=== PATIENT | female | born 1940 | race Caucasian/White ===

== ENCOUNTER 2016-10-09 14:28 | Outpatient (CLI) | payer MEDICARE, BC | END 2016-10-09 14:29 | disposition home or self-care (01) | DX: I48.2 Chronic atrial fibrillation (principal) ==

== ENCOUNTER 2016-11-13 11:08 | Outpatient (CLI) | payer MEDICARE, BC | END 2016-11-13 11:09 | disposition home or self-care (01) | DX: I48.2 Chronic atrial fibrillation (principal) ==

== ENCOUNTER 2016-11-26 13:24 | Outpatient (CLI) | payer MEDICARE, BC | END 2016-11-26 13:25 | disposition home or self-care (01) | DX: I48.2 Chronic atrial fibrillation (principal); I10 Essential (primary) hypertension ==

== ENCOUNTER 2016-12-25 14:18 | Outpatient (CLI) | payer MEDICARE, BC | END 2016-12-25 14:19 | disposition home or self-care (01) | DX: I48.2 Chronic atrial fibrillation (principal) ==

== ENCOUNTER 2017-01-20 10:15 | Outpatient (CLI) | payer MEDICARE, BC | END 2017-01-20 10:16 | disposition home or self-care (01) | LOC: SC 10:15 | PROVIDERS: ATTEND Nurse Practitioner Family | DX: G47.33 Obstructive sleep apnea (adult) (pediatric) (principal) | CPT/HCPCS: 99213; G0463; 99212 ==

== ENCOUNTER 2017-02-05 13:56 | Outpatient (CLI) | payer MEDICARE, BC | END 2017-02-05 13:57 | disposition home or self-care (01) | LOC: LAB.N 13:56 | PROVIDERS: ATTEND Pharmacist | DX: I48.2 Chronic atrial fibrillation (principal) | CPT/HCPCS: 85610 ==

== ENCOUNTER 2017-02-22 15:03 | Outpatient (CLI) | payer MEDICARE, BC ==
[2017-02-22 19:07] LABS: CALCIUM 9.2 mg/dL (8.5-10.3); CREATININE 0.5 mg/dL (0.4-1.0); POTASSIUM 3.9 mmol/L (3.5-5.0)
== END 2017-02-22 15:04 | disposition home or self-care (01) ==
LOC: LAB.N 15:03
PROVIDERS: ATTEND Internal Medicine Cardiovascular Disease
DX: I10 Essential (primary) hypertension (principal); I48.2 Chronic atrial fibrillation
CPT/HCPCS: 36415; 80048

== ENCOUNTER 2017-03-15 08:12 | Outpatient (CLI) | payer MEDICARE, BC | END 2017-03-15 08:13 | disposition home or self-care (01) | DX: I48.2 Chronic atrial fibrillation (principal) ==

== ENCOUNTER 2017-03-30 08:00 | Outpatient (CLI) | payer MEDICARE, BC | END 2017-03-30 08:01 | disposition home or self-care (01) | LOC: LAB.N 08:00 | PROVIDERS: ATTEND Pharmacist | DX: I48.2 Chronic atrial fibrillation (principal) | CPT/HCPCS: 85610 ==

== ENCOUNTER 2017-04-29 15:03 | Outpatient (CLI) | payer MEDICARE, BC | END 2017-04-29 15:04 | disposition home or self-care (01) | LOC: LAB.N 15:03 | PROVIDERS: ATTEND Pharmacist | DX: I48.2 Chronic atrial fibrillation (principal) | CPT/HCPCS: 85610 ==

== ENCOUNTER 2017-05-04 10:33 | Outpatient (CLI) | payer MEDICARE, BC | END 2017-05-04 10:34 | disposition home or self-care (01) | LOC: SC 10:33 | PROVIDERS: ATTEND Nurse Practitioner Family | DX: G47.33 Obstructive sleep apnea (adult) (pediatric) (principal) | CPT/HCPCS: 99214; G0463; 99212 ==

== ENCOUNTER 2017-05-24 08:00 | Outpatient (CLI) | payer MEDICARE, BC | END 2017-05-24 08:01 | disposition home or self-care (01) | LOC: LAB.N 08:00 | PROVIDERS: ATTEND Pharmacist | DX: I48.2 Chronic atrial fibrillation (principal) | CPT/HCPCS: 85610 ==

== ENCOUNTER 2017-06-21 08:00 | Outpatient (CLI) | payer MEDICARE, BC | END 2017-06-21 08:01 | disposition home or self-care (01) | LOC: LAB.N 08:00 | PROVIDERS: ATTEND Pharmacist | DX: I48.2 Chronic atrial fibrillation (principal) | CPT/HCPCS: 85610 ==

== ENCOUNTER 2017-07-06 08:00 | Outpatient (CLI) | payer MEDICARE, BC | END 2017-07-06 08:01 | disposition home or self-care (01) | LOC: LAB.N 08:00 | PROVIDERS: ATTEND Pharmacist | DX: I48.2 Chronic atrial fibrillation (principal) | CPT/HCPCS: 85610 ==

== ENCOUNTER 2017-07-20 15:30 | Outpatient (CLI) | payer MEDICARE, BC | END 2017-07-20 15:31 | disposition home or self-care (01) | LOC: LAB.N 15:30 | PROVIDERS: ATTEND Pharmacist | DX: I48.2 Chronic atrial fibrillation (principal) | CPT/HCPCS: 85610 ==

== ENCOUNTER 2017-08-04 13:28 | Outpatient (CLI) | payer MEDICARE, BC | END 2017-08-04 13:29 | disposition home or self-care (01) | LOC: LAB.N 13:28 | PROVIDERS: ATTEND Pharmacist | DX: I48.2 Chronic atrial fibrillation (principal) | CPT/HCPCS: 85610 ==

== ENCOUNTER 2017-08-31 08:00 | Outpatient (CLI) | payer MEDICARE, BC | END 2017-08-31 08:01 | disposition home or self-care (01) | LOC: LAB.N 08:00 | PROVIDERS: ATTEND Pharmacist | DX: I48.2 Chronic atrial fibrillation (principal) | CPT/HCPCS: 85610 ==

== ENCOUNTER 2017-09-24 13:33 | Outpatient (CLI) | payer MEDICARE, BC | END 2017-09-24 13:34 | disposition home or self-care (01) | LOC: LAB.N 13:33 | PROVIDERS: ATTEND Pharmacist | DX: I48.2 Chronic atrial fibrillation (principal) | CPT/HCPCS: 85610 ==

== ENCOUNTER 2018-01-07 11:13 | Outpatient (CLI) | payer MEDICARE, BC | END 2018-01-07 11:14 | disposition home or self-care (01) | LOC: LAB.N 11:13 | PROVIDERS: ATTEND Pharmacist | DX: I48.2 Chronic atrial fibrillation (principal) | CPT/HCPCS: 85610 ==

== ENCOUNTER 2018-01-17 08:00 | Outpatient (CLI) | payer MEDICARE, BC | END 2018-01-17 08:01 | disposition home or self-care (01) | LOC: LAB.N 08:00 | PROVIDERS: ATTEND Pharmacist | DX: I48.2 Chronic atrial fibrillation (principal) | CPT/HCPCS: 85610 ==

== ENCOUNTER 2018-02-01 11:29 | Outpatient (CLI) | payer MEDICARE, BC | END 2018-02-01 11:30 | LOC: LAB.N 11:29 | PROVIDERS: ATTEND Pharmacist | DX: I48.2 Chronic atrial fibrillation (principal) | CPT/HCPCS: 85610 ==

== ENCOUNTER 2018-02-15 08:00 | Outpatient (CLI) | payer MEDICARE, BC | END 2018-02-15 08:01 | LOC: LAB.N 08:00 | PROVIDERS: ATTEND Pharmacist | DX: I48.2 Chronic atrial fibrillation (principal) | CPT/HCPCS: 85610 ==

== ENCOUNTER 2018-02-28 08:00 | Outpatient (CLI) | END 2018-02-28 08:01 | disposition home or self-care (01) ==

== ENCOUNTER 2018-03-02 10:44 | Outpatient (CLI) | payer MEDICARE, BC ==
--- NOTE | 2018-03-03 10:28 | Mammography Report ---
Procedure Date: 03/02/2018 Accession Number: [id number] / [id number] Procedure: MGN - Screening Mammo Dig Bilat CPT Code: FULL RESULT: EXAM: Screening Mammo Dig Bilat DATE: 03/02/2018 11:09 AM CLINICAL HISTORY: 77-year-old with history of benign bilateral biopsies for screening TECHNIQUE: Bilateral CC, laterally exaggerated CC, MLO views were obtained. COMPARISON: 06/18/2016, 02/06/2015, 01/08/2014, 12/15/2012, 12/11/2011, 12/15/2010, 12/10/2009 FINDINGS: The breasts demonstrate heterogeneously dense fibroglandular parenchyma bilaterally. Postbiopsy changes are stable. Coarse and punctate, typically benign calcifications are present. No suspicious masses, clustered microcalcifications, or regions of architectural distortion are identified. IMPRESSION: Benign findings RECOMMENDATION: Routine annual screening unless otherwise clinically indicated. BIRADS CATEGORY 2: Benign findings STANDARD QUALIFYING STATEMENTS: 1. This examination was reviewed with the aid of Computer-Aided Detection (CAD). 2. A negative or benign imaging report should not delay biopsy if clinically suspicious findings are present. Consider surgical consultation if warrented. More than 5% of cancers are not identified by imaging. 3. Dense breasts may obscure an underlying neoplasm.
== END 2018-03-02 10:45 | disposition home or self-care (01) ==
LOC: DI.N 10:44
PROVIDERS: ATTEND Specialist
DX: Z12.31 Encounter for screening mammogram for malignant neoplasm of breast (principal)
CPT/HCPCS: 77067

== ENCOUNTER 2018-03-10 15:39 | Outpatient (CLI) | payer MEDICARE, BC | END 2018-03-10 15:40 | disposition home or self-care (01) | LOC: LAB.N 15:39 | PROVIDERS: ATTEND Pharmacist | DX: I48.2 Chronic atrial fibrillation (principal) | CPT/HCPCS: 85610 ==

== ENCOUNTER 2018-04-14 14:30 | Outpatient (CLI) | payer MEDICARE, BC | END 2018-04-14 14:31 | disposition home or self-care (01) | LOC: LAB.N 14:30 | PROVIDERS: ATTEND Pharmacist | DX: I48.2 Chronic atrial fibrillation (principal) | CPT/HCPCS: 85610 ==

== ENCOUNTER 2018-04-15 11:39 | Outpatient (CLI) | payer MEDICARE, BC | END 2018-04-15 11:40 | disposition home or self-care (01) | LOC: EMS 11:39 | PROVIDERS: ATTEND Surgery | DX: M25.561 Pain in right knee (principal) | CPT/HCPCS: A0425; A0429 ==

== ENCOUNTER 2018-04-15 12:11 | Inpatient (IN) | payer MEDICARE, BC ==
--- NOTE | 2018-04-15 13:49 | XRAY Report ---
Procedure Date: 04/15/2018 Accession Number: [id number] / [id number] Procedure: XR - Knee 2 View RT CPT Code: FULL RESULT: EXAM: RIGHT KNEE RADIOGRAPHY EXAM DATE: 04/15/2018 01:24 PM. CLINICAL HISTORY: RIGHT KNEE PAIN. COMPARISON: None. TECHNIQUE: 2 views. FINDINGS: There is a displaced and angulated fracture of the distal femoral diaphysis. No intra-articular extension. Lateral compartment hemiprosthesis in place without evidence of complication. Soft tissue swelling. No significant joint effusion. IMPRESSION: Displaced and angulated distal femoral diaphyseal fracture. RADIA
[2018-04-15] MEDS ORDERED: MORPHINE 10 MG/ML VIAL IVP STA (13:53)
--- NOTE | 2018-04-15 14:36 | ED Physician Documentation ---
PD HPI LOWER EXT INJURY - Stated complaint Stated Complaint: R KNEE PAIN, GLF - Chief complaint Chief Complaint: Ext Problem - History obtained from History obtained from: Patient - History of Present Illness PD HPI LOW EXT INJURY LOCATION: Right, Upper leg Type of injury: Fall Where injury occurred: Home Timing - onset: Today Timing - details: Abrupt onset Worsened by: Moving, Palpating Contributing factors: Prosthetic joint - Additional information Additional information: The patient is a 77-year-old female with a right total hip replacement and a right partial knee replacement who presents with right knee pain after falling this morning. It was a low impact fall when she lost her balance and stumbled, twisting her leg underneath her as she went to the floor. She felt a "snap." She has not been able to stand since incident occurred because of pain in her knee. She denies any other injuries. She is 2 years status post partial right knee replacement and 3 months status post right total hip replacement. Past medical history is significant for atrial fibrillation, for which she is on Coumadin. Review of Systems Constitutional: denies: Fever Ears: denies: Tinnitus/ringing Nose: denies: Congestion Cardiac: denies: Chest pain / pressure Respiratory: denies: Dyspnea, Cough GI: denies: Abdominal Pain, Nausea, Vomiting Skin: denies: Rash, Abrasion (s) Musculoskeletal: reports: Extremity pain (right leg). denies: Neck pain Neurologic: denies: Focal weakness, Numbness, Headache PD PAST MEDICAL HISTORY - Past Medical History Cardiovascular: Hypertension, Atrial fibrillation Respiratory: Sleep apnea, CPAP use Endocrine/Autoimmune: None GI: Diverticulitis : None HEENT: None Psych: Depression, Anxiety Musculoskeletal: Osteoarthritis - Past Surgical History Past Surgical History: Yes Ortho: Knee replacement - Present Medications Home Medications: Ambulatory Orders Medication Instructions Recorded Confirmed Losartan [Cozaar] 50 mg PO BID 11/02/14 04/15/18 Metoprolol Succinate 50 mg PO BID 11/02/14 04/15/18 Warfarin [Coumadin] 5 mg PO SUTUWEFRSA 11/02/14 04/15/18 Zolpidem Tartrate [Ambien] 5 mg PO QPM PRN 11/02/14 04/15/18 [id number] CD [Cardizem Cd] 180 mg PO BID 11/02/14 04/15/18 Chlorthalidone [Chlorthalidone] 25 mg PO DAILY 04/15/18 04/15/18 FLUoxetine [PROzac] 40 mg PO DAILY 04/15/18 04/15/18 Warfarin Sodium [Warfarin Sodium] 7.5 mg PO MOTH 04/15/18 04/15/18 - Allergies Allergies/Adverse Reactions: Allergies Allergy/AdvReac Type Severity Reaction Status Date / Time Nxsxsxr-Zce-Mgr Reductase Allergy Unknown Verified 04/15/18 16:52 Inhibitor - Social History Does the pt smoke?: No Smoking Status: Former smoker Does the pt drink ETOH?: Yes Does the pt have substance abuse?: No - Immunizations Immunizations are current?: Yes - POLST Patient has POLST: No PD ED PE NORMAL - Vitals Vital signs reviewed: Yes (Normal) - General General: Alert and oriented X 3, Well developed/nourished - HEENT HEENT: Atraumatic - Neck Neck: No bony TTP - Cardiac Cardiac: RRR - Respiratory Respiratory: No respiratory distress, Clear bilaterally - Abdomen Abdomen: Soft, Non tender - Back Back: No CVA TTP, No spinal TTP - Derm Derm: No rash - Extremities Extremities: No calf tenderness / cord, Other (Right leg is shortened compared to the left, and there is tenderness to palpation just proximal to the knee. Distal neurovascular is intact.) - Neuro Neuro: Alert and oriented X 3, No motor deficit, No sensory deficit Results - Vitals Vitals: Vital Signs - 24 hr 04/15/18 04/15/18 12:17 16:15 Temperature 36.1 C L 36.7 C Heart Rate 68 80 Respiratory 18 18 Rate Blood Pressure 117/67 150/84 H O2 Saturation 98 98 Oxygen O2 Source Room air - Labs Labs: Laboratory Tests 04/15/18 04/15/18 04/15/18 12:55 15:10 15:10 WBC 11.8 H RBC 4.78 Hgb 13.9 Hct 40.0 MCV 83.7 MCH 29.1 MCHC 34.7 RDW 15.3 H Plt Count 251 MPV 7.7 L Neut # (Auto) 10.5 H Lymph # (Auto) 0.6 L Ware # (Auto) 0.6 Eos # (Auto) 0.1 Baso # (Auto) 0.0 Absolute Nucleated RBC 0.01 Nucleated RBC % 0.1 Whole Blood INR 1.9 H Sodium 122 L Potassium 3.4 L Chloride 86 L Carbon Dioxide 26 Anion Gap 10.0 BUN 18 Creatinine 0.5 Estimated GFR (MDRD) 120 Glucose 118 H Calcium 9.3 Total Bilirubin 1.0 AST 21 ALT 17 Alkaline Phosphatase 76 Total Protein 7.7 Albumin 4.3 Globulin 3.4 Albumin/Globulin Ratio 1.3 Lipase 26 04/15/18 16:05 WBC RBC Hgb Hct MCV MCH MCHC RDW Plt Count MPV Neut # (Auto) Lymph # (Auto) Ware # (Auto) Eos # (Auto) Baso # (Auto) Absolute Nucleated RBC Nucleated RBC % Whole Blood INR 1.9 H Sodium Potassium Chloride Carbon Dioxide Anion Gap BUN Creatinine Estimated GFR (MDRD) Glucose Calcium Total Bilirubin AST ALT Alkaline Phosphatase Total Protein Albumin Globulin Albumin/Globulin Ratio Lipase - Rads (name of study) right knee Radiology: Prelim report reviewed (There is displaced and angulated fracture of the distal femoral diaphysis. No intra-articular extension. Lateral compartment hemiprosthesis in place without evidence of complication. Soft tissue swelling. No significant joint effusion.), EMP read contemporaneously, See rad report PD MEDICAL DECISION MAKING - ED course Complexity details: reviewed results, re-evaluated patient, considered differential, d/w patient, d/w family, d/w insurance healthcare consultant ED course: The patient's presentation is significant for displaced, angulated fracture of the right distal femur, without intra-articular involvement. Treatment in the emergency department included insertion of a PICC line by anesthesia after multiple unsuccessful attempts at peripheral IV access. Morphine 5 mg administered IV 2. A knee immobilizer was placed while traction was applied to the leg to help improve alignment of the fracture site. I discussed her condition with Dr. Collado who plans orthopedic intervention. I discussed her condition with Dr. Travis, who will admit for medical management, including reversal of her warfarin prior to surgery. - Sepsis Event Vital Signs: Vital Signs - 24 hr 04/15/18 04/15/18 12:17 16:15 Temperature 36.1 C L 36.7 C Heart Rate 68 80 Respiratory 18 18 Rate Blood Pressure 117/67 150/84 H O2 Saturation 98 98 Oxygen O2 Source Room air Departure - Departure Disposition: [facility] DC/Xfer Clinical Impression: Atrial fibrillation and flutter Closed right femoral fracture Qualifiers: Encounter type: initial encounter Femur location: distal Fracture morphology: unspecified fracture morphology Qualified Code(s): S72.401A - Unspecified fracture of lower end of right femur, initial encounter for closed fracture Condition: Stable Discharge Date/Time: 04/15/18 17:32
[2018-04-15 15:34] LABS: BASOPHILS % (AUTO) 0.4 %; EOSINOPHILS # (AUTO) 0.1 10^3/uL (0.0-0.7); EOSINOPHILS % (AUTO) 0.5 %; HGB - HEMOGLOBIN 13.9 g/dL (12.0-16.0); LYMPHOCYTES # (AUTO) 0.6 10^3/uL (1.5-3.5); LYMPHOCYTES % (AUTO) 5.1 %; MEAN CORPUSCULAR HEMOGLOBIN 29.1 pg (27.0-31.0); MEAN CORPUSCULAR HGB CONC 34.7 g/dL (32.0-36.0); MEAN CORPUSCULAR VOLUME 83.7 fL (81.0-99.0); MEAN PLATELET VOLUME 7.7 fL (7.9-10.8); MONOCYTES # (AUTO) 0.6 10^3/uL (0.0-1.0); MONOCYTES % (AUTO) 5.1 %; NEUTROPHILS # (AUTO) 10.5 10^3/uL (1.5-6.6); NEUTROPHILS % (AUTO) 88.9 %; PLT - PLATELET COUNT 251 10^3/uL (130-450); RED BLOOD COUNT 4.78 10^6/uL (4.20-5.40); RED CELL DISTRIBUTION WIDTH 15.3 % (12.0-15.0); WHITE BLOOD COUNT 11.8 x10^3/uL (4.8-10.8)
[2018-04-15 15:37] LABS: ALBUMIN 4.3 g/dL (3.2-5.5); ALBUMIN/GLOBULIN RATIO 1.3 (1.0-2.2); CALCIUM 9.3 mg/dL (8.5-10.3); CREATININE 0.5 mg/dL (0.4-1.0); TOTAL PROTEIN 7.7 g/dL (6.7-8.2)
[2018-04-15] MEDS ORDERED: MORPHINE 10 MG/ML VIAL ONE (15:37)
[2018-04-15] MEDS ORDERED: SODIUM CHLORIDE 0.9% 1,000 ML IV SCH (16:00)
[2018-04-15] MEDS ORDERED: POTASSIUM CHLORIDE 20 MEQ TABLET PO ONE (16:13)
[2018-04-15] MEDS ORDERED: ONDANSETRON 4 MG/2 ML VIAL IVP PRN (16:24)
[2018-04-15] MEDS ORDERED: SODIUM CHLORIDE FLUSH 0.9% 10 ML SYRINGE IVP PRN (16:24)
[2018-04-15] MEDS ORDERED: oxyCODONE 5 MG TABLET PO PRN (16:24)
--- NOTE | 2018-04-15 16:24 | PROVIDER PROGRESS NOTE ---
Subjective - Prog Note Date Prog Note Date: 04/15/18 Prog Note Time: 16:21 - Subjective Pt reports feeling: Worse (Patient apparently twisted right knee trying to get off the floor while on "all-fours" and felt a painful "pop" in her right distal thigh. Now 4 months s/p right THR; has had right unicompartmental knee replacement in the past as well. No distal weakness/numbness.) Objective - Vital Signs/Intake & Output Vital Signs: Vital Signs x48h Temp Pulse Resp BP Pulse Ox 04/15/18 16:15 36.7 C 80 18 150/84 H 98 04/15/18 12:17 36.1 C L 68 18 117/67 98 - Lab Results Fish Bones: 04/15/18 15:10 04/15/18 15:10 Other Labs: Lab Results x24hrs 04/15/18 04/15/18 04/15/18 Range/Units 16:05 15:10 15:10 WBC 11.8 H (4.8-10.8) x10^3/uL RBC 4.78 (4.20-5.40) 10^6/uL Hgb 13.9 (12.0-16.0) g/dL Hct 40.0 (37.0-47.0) % MCV 83.7 (81.0-99.0) fL MCH 29.1 (27.0-31.0) pg MCHC 34.7 (32.0-36.0) g/dL RDW 15.3 H (12.0-15.0) % Plt Count 251 (130-450) 10^3/uL MPV 7.7 L (7.9-10.8) fL Neut # (Auto) 10.5 H (1.5-6.6) 10^3/uL Lymph # (Auto) 0.6 L (1.5-3.5) 10^3/uL [place] # (Auto) 0.6 (0.0-1.0) 10^3/uL Eos # (Auto) 0.1 (0.0-0.7) 10^3/uL Baso # (Auto) 0.0 (0.0-0.1) 10^3/uL Absolute Nucleated RBC 0.01 x10^3/uL Nucleated RBC % 0.1 /100WBC Whole Blood INR 1.9 H (0.8-1.2) Sodium 122 L (135-145) mmol/L Potassium 3.4 L (3.5-5.0) mmol/L Chloride 86 L (101-111) mmol/L Carbon Dioxide 26 (21-32) mmol/L Anion Gap 10.0 (6-13) BUN 18 (6-20) mg/dL Creatinine 0.5 (0.4-1.0) mg/dL Estimated GFR (MDRD) 120 (>89) Glucose 118 H (70-100) mg/dL Calcium 9.3 (8.5-10.3) mg/dL Total Bilirubin 1.0 (0.2-1.0) mg/dL AST 21 (10-42) IU/L ALT 17 (10-60) IU/L Alkaline Phosphatase 76 (42-121) IU/L Total Protein 7.7 (6.7-8.2) g/dL Albumin 4.3 (3.2-5.5) g/dL Globulin 3.4 (2.1-4.2) g/dL Albumin/Globulin Ratio 1.3 (1.0-2.2) Lipase 26 (22-51) U/L 04/15/18 Range/Units 12:55 WBC (4.8-10.8) x10^3/uL RBC (4.20-5.40) 10^6/uL Hgb (12.0-16.0) g/dL Hct (37.0-47.0) % MCV (81.0-99.0) fL MCH (27.0-31.0) pg MCHC (32.0-36.0) g/dL RDW (12.0-15.0) % Plt Count (130-450) 10^3/uL MPV (7.9-10.8) fL Neut # (Auto) (1.5-6.6) 10^3/uL Lymph # (Auto) (1.5-3.5) 10^3/uL [place] # (Auto) (0.0-1.0) 10^3/uL Eos # (Auto) (0.0-0.7) 10^3/uL Baso # (Auto) (0.0-0.1) 10^3/uL Absolute Nucleated RBC x10^3/uL Nucleated RBC % /100WBC Whole Blood INR 1.9 H (0.8-1.2) Sodium (135-145) mmol/L Potassium (3.5-5.0) mmol/L Chloride (101-111) mmol/L Carbon Dioxide (21-32) mmol/L Anion Gap (6-13) BUN (6-20) mg/dL Creatinine (0.4-1.0) mg/dL Estimated GFR (MDRD) (>89) Glucose (70-100) mg/dL Calcium (8.5-10.3) mg/dL Total Bilirubin (0.2-1.0) mg/dL AST (10-42) IU/L ALT (10-60) IU/L Alkaline Phosphatase (42-121) IU/L Total Protein (6.7-8.2) g/dL Albumin (3.2-5.5) g/dL Globulin (2.1-4.2) g/dL Albumin/Globulin Ratio (1.0-2.2) Lipase (22-51) U/L - Diagnostic Imaging Diagnostic Imaging Comments: XR: shows right distal femur fracture. Unicompartmental knee intact. Can not see the right femoral prosthesis tip on these XR. - Other Results/Comments Other Results/Comments: EXAM: Gross deformity of distal thigh. Painful right knee motion. N/V ok distally. Moves toes well. Good cap filling Assessment/Plan - Problem List (1) Closed right femoral fracture Impression: Periprosthetic right distal femur fracture - s/p unicompartment knee replacement s/p right THR - 4 months ago A. fib - on warfarin PLAN: Closed reduction with analgesics in ED and place into knee immobilizer. Reverse warfarin with Vit K. FFP as needed preop. Plan ORIF of distal femur fracture with a locked distal femoral plating Mon AM. Risk/benfit explained including anesthesia risk, infection, blood loss, nerve damage, nonunion, malunion, DVT, etc. Questions answered. Consent signed. Leg marked. Qualifiers: Encounter type: initial encounter Femur location: distal Fracture morphology: unspecified fracture morphology Qualified Code(s): S72.401A - Unspecified fracture of lower end of right femur, initial encounter for closed fracture
--- NOTE | 2018-04-15 16:54 | HISTORY & PHYSICAL EXAMINATION ---
Chief Complaint - Chief Complaint Chief Complaint: left knee pain History of Present Illness - History of Present Illness HPI Comment/Other: Ms. Li is a 77-yrs-old female with a past medical history of chronic Afib with Coumadin, hx of a small stroke on 2014, a partial right knee replacement on 2016, HTN, anxiety, who present ER for complaint of fall and pain on right knee. Pt tried to sweet pickle maker the thing from floor at home, it apparently twisted right knee and felt a painful "pop" in her right distal thigh. pt denies any other injury. Xray of right knee reveals displaced and angulated distal femoral diaphyseal fracture. ER called Dr. Collado. Pt's INR today 1.9. prefer to have Vitamin K for preparing the surgery. pt denies chest pain, palpitation, syncope, headache, fever, chill, shortness of breath. History - Past Medical History Cardiovascular: reports: Hypertension, Atrial fibrillation Respiratory: reports: Sleep apnea, CPAP use Endocrine/Autoimmune: reports: None GI: reports: Diverticulitis : reports: None HEENT: reports: None Psych: reports: Depression, Anxiety Musculoskeletal: reports: Osteoarthritis MRSA Hx?: No - Past Surgical History Ortho: reports: Knee replacement /[employer]: reports: Other HEENT: reports: Tonsil/Adenoidectomy - Family & Social History Family History: Mother: , Father: , Cancer, CVA/TIA Family History Comment/Other: pt is living [facility]. Pt had three children Social History Notes: previous cigarett smoker, no alcohol or drug problem - Substance History Use: Uses substance without health or social issues: NONE - POLST Patient has POLST: No POLST Status: Full Code Meds/Allgy - Home Medications Home Medications: Ambulatory Orders Medication Instructions Recorded Confirmed Losartan [Cozaar] 50 mg PO BID 11/02/14 04/15/18 Metoprolol Succinate 50 mg PO BID 11/02/14 04/15/18 Warfarin [Coumadin] 5 mg PO SUTUWEFRSA 11/02/14 04/15/18 Zolpidem Tartrate [Ambien] 5 mg PO QPM PRN 11/02/14 04/15/18 diltiaZEM CD [Cardizem Cd] 180 mg PO BID 11/02/14 04/15/18 Chlorthalidone [Chlorthalidone] 25 mg PO DAILY 04/15/18 04/15/18 FLUoxetine [PROzac] 40 mg PO DAILY 04/15/18 04/15/18 Warfarin Sodium [Warfarin Sodium] 7.5 mg PO MOTH 04/15/18 04/15/18 - Allergies Allergies/Adverse Reactions: Allergies Allergy/AdvReac Type Severity Reaction Status Date / Time Oxeyyjp-Spg-Vwi Reductase Allergy Unknown Verified 04/15/18 16:52 Inhibitor Review of Systems - Constitutional Constitutional: denies: Fatigue, Fever, Chills, Malaise, Weakness, Poor appetite , Diaphoresis, Night sweats - Eyes Eyes: denies: Pain, Irritation, Amaurosis, Blurred vision, Spots in vision, Field loss, Vision loss, Dipolpia - Ears, Nose & Throat Ears, Nose & Throat: denies: Ear pain, Hearing aids, Tinnitus, Nasal pain, Nosebleeds, Nasal obstruction, Nasal congestion, Dentures, Hoarseness, Mouth lesions, Bleeding gums - Cardiovascular Cariovascular: denies: Irregular heart rate, Palpitations, Chest pain, Edema, Lightheadedness, Syncope, Exertional dyspnea, Decr. exercise tolerance - Respiratory Respiratory: denies: Cough, Sputum production, Wheezing, Snoring, Hemoptysis, Orthopnea, SOB at rest, SOB with exertion - Gastrointestinal Gastrointestinal: denies: Abdominal pain, Abdominal distention, Constipation, Diarrhea, Change in bowel habits, Rectal bleeding, Black stools, Bloody stools, Nausea, Vomiting, Bile emesis, Emanuel blood emesis, Coffee grounds emesis, Reflux /heartburn - Genitourinary Genitourinary: denies: Dysuria, Frequency, Urgency, Hematuria, Incontinence, Flank pain, Nocturia, Urethral discharge - Musculoskeletal Musculoskeletal: reports: Limited range of motion, Joint pain. denies: Muscle pain, Back pain, Muscle aches, Stiffness, Muscle weakness, Gout - Integumentary Integumentary: denies: Rash, Pruritis, Lesions, Dryness, Lumps, Acne, Pigment changes, Nail changes - Neurological Neurological: denies: General weakness, Focal weakness, Headache, Dizziness, Numbness, Memory problems, Pre-existing deficit, Abnormal gait, Seizures, Incoordination, Slurred speech - Psychiatric Psychiatric: denies: Depression, Anxiety, Suicidal, Delusions, Hallucinations, Homicidal - Endocrine Endocrine: denies: Polyuria, Polydypsia, Polyphagia, Intolerance to cold - Hematologic/Lymphatic Hematologic/Lymphatic: denies: Anemia, Bruising, Petechiae, Blood clots, Lymphadenopathy, Bleeding tendencies Exam - Vital Signs Reviewed Vital Signs: Yes Vital Signs: Vital Signs x48h Temp Pulse Resp BP Pulse Ox 04/15/18 16:15 36.7 C 80 18 150/84 H 98 04/15/18 12:17 36.1 C L 68 18 117/67 98 - Physical Exam General Appearance: positive: No acute distress, Alert. negative: Lethargic Eyes Bilateral: positive: Normal inspection, PERRL, No lid inflammation, Conjunctivae nml ENT: positive: ENT inspection nml, Pharynx nml, No signs of dehydration. negative: Purulent nasal drainage, Pharyngeal erythema, Oral lesions Neck: positive: Nml inspection, Thyroid nml, No JVD, Trachea midline. negative : Thyromegaly, Lymphadenopathy (R), Lymphadenopathy (L), Stiff neck, Swelling/ bruising, Tracheal deviation Respiratory: positive: Chest non-tender, No respiratory distress, Breath sounds nml. negative: Wheezes, Rales, Rhonchi Cardiovascular: positive: Regular rate & rhythm, No murmur, No gallop. negative : Irregularly irregular, Extrasystoles, Tachycardia, Bradycardia, JVD present, Systolic murmur, Diastolic murmur Peripheral Pulses: positive: 2+ Abdomen: positive: Non-tender, No organomegaly, Nml bowel sounds, No distention. negative: Tenderness, Guarding, Rebound Back: positive: Nml inspection. negative: CVA tenderness (R), CVA tenderness (L ) Skin: positive: Color nml, No rash, Warm, Dry. negative: Cyanosis, Diaphoresis , Pallor Extremities: negative: Calf tenderness, Joint swelling, Jose's sign/cords Neurologic/Psychiatric: positive: Oriented x3, Sensation nml, Mood/affect nml. negative: Weakness, Sensory loss, Facial droop, Slurred/abnml speech, Depressed mood/affect Conclusion/Plan - Problem List (1) Closed right femoral fracture Conclusion/Plan: consult with orthopedics, will followup surgeon pain control order vitmin K to reverse Coumadin effect Qualifiers: Encounter type: initial encounter Femur location: distal Fracture morphology: unspecified fracture morphology Qualified Code(s): S72.401A - Unspecified fracture of lower end of right femur, initial encounter for closed fracture (2) Atrial fibrillation Conclusion/Plan: HR is stable, continue metoprolol, Cardizem hold Coumadin daily PT/INR add vitamin K, today INR is 1.9 tele, vital monitor (3) Hyponatremia Conclusion/Plan: pt has chronic hyponatremia hold HCTZ start IVF of NS daily lab monitor (4) Hypokalemia Conclusion/Plan: K 3.4, will replacement daily Potassium check (5) HTN (hypertension) Conclusion/Plan: stable, continue home BP meds (6) Anxiety Conclusion/Plan: stable, resume Prosac (7) DVT prophylaxis Conclusion/Plan: SCD and Lovenox (8) Full code status Conclusion/Plan: pt request full code - Lab Results Fish Bones: 04/15/18 15:10 04/15/18 15:10 Core Measures - Anticipated LOS I expect patient to be DC'd or transferred within 96 hours.: Yes - DVT/VTE - Prophylaxis VTE/DVT Device ordered at admit?: Yes VTE/DVT Prophylaxis med ordered at admit?: Yes
--- NOTE | 2018-04-15 17:07 | XRAY Report ---
Procedure Date: 04/15/2018 Accession Number: [id number] / [id number] Procedure: XR - Femur 1V RT CPT Code: FULL RESULT: EXAM: RIGHT FEMUR RADIOGRAPHY EXAM DATE: 04/15/2018 04:39 PM. CLINICAL HISTORY: Right femur fracture. Right hip arthroplasty. COMPARISON: None. TECHNIQUE: 1 view. FINDINGS: Bones: Acute, displaced and dorsally angulated distal right femur diaphyseal fracture. 45 degrees of dorsal angulation is noted. One shaft width of posterior displacement of the distal fragment noted. Joints: Status post lateral right knee arthroplasty. Normal alignment. Status post right hip arthroplasty. Right hip arthroplasty is in normal alignment on a single radiograph. No AP image provided. Soft Tissues: Distal right thigh soft tissue swelling. IMPRESSION: Acute, angulated, displaced distal right femur diaphyseal fracture with 45 degrees of dorsal angulation. RADIA
[2018-04-15] MEDS ORDERED: CHERRY SYRUP 10 ML UDC PO ONE (17:26)
[2018-04-15] MEDS ORDERED: PHYTONADIONE 10 MG/ML AMP PO ONE (17:26)
[2018-04-15] MEDS ORDERED: MORPHINE 10 MG/ML VIAL IVP ONE (17:41)
--- NOTE | 2018-04-15 17:49 | CONSULTATION NOTE ---
DATE OF SERVICE: 04/15/2018 Physician: Albin Collado MD CHIEF COMPLAINT: "My right knee hurts." HISTORY OF PRESENT ILLNESS: Patient is a 77-year-old female that apparently twisted her ri ght knee at home today sustaining her current injury. She is now 4 months status post right total hi p replacement. She was on her all fours on the floor on the day of her accident and was attempting t o stand up. Doing so, she twisted the knee and felt a painful pop around her knee. She was unable t o stand and weight bear after this. Denied any loss of consciousness, weakness or numbness in her le g, or any other injuries. She did note a gross deformity in her thigh. She was taken to the emergen cy room here at [facility] where her evaluation including x-ray showed an extraarticula r distal femur fracture. She also has what appears to be an intact unicompartmental knee replacement in the same right knee. Again, as noted earlier, she 4 months ago had a right total hip replacement done on the same right side. Patient's medical condition is significant for atrial fibrillation for which she takes Coumadin. Last took her last dose of Coumadin yesterday evening. PHYSICAL EXAMINATION: Patient has a mild amount of distress as she is lying in the stretcher. Mild deformity of her leg appreciated as well. Painful range of motion to her right knee noted. She move s her toes satisfactory on command. Sensation is intact throughout. Good capillary filling noted at the nail beds of her digits as well. DIAGNOSTIC DATA: X-rays show an extraarticular distal femur fracture. This is proximal to knee unic ompartmental prosthesis which appears to be intact. Cannot see the tip of her femoral prosthesis fro m her recent total hip replacement on the same side. ASSESSMENT 1. Closed displaced right distal femur fracture - this is a periprosthetic fracture with a unicompar tmental knee replacement in the same right side. Coincidentally, she also has a right total knee rep lacement on the same side, which is now 4 months old. 2. Status post right total hip replacement. 3. Atrial fibrillation - is on chronic warfarin treatment for her atrial fibrillation. PLAN: With pain medications and light sedation, she had a reduction of her fracture done in the [facility] room and she was placed into a knee immobilizer. She will be admitted for pain control and a r eversal of her Coumadin. We will give her some vitamin K and then watch her serial INR/PT. Expect w ithin 2-3 days this will be reversed with vitamin K. If necessary, we can supplement vitamin K with fresh frozen plasma as needed. We will plan on proceeding with open reduction internal fixation of h er right distal femur fracture using a locked distal femoral plating. This can be done essentially p ercutaneous. I have contacted the [employer] vendor who will bring in the instrumentation and implants to perform this procedure. The risks and benefits were explained to the patient including a nesthesia risks, malunion, nonunion, hardware failure, infection, blood loss, nerve damage, deep veno us thrombosis, etc. Her questions were answered as well. She appears to understand and wishes to pr oceed with surgery tentatively scheduled now for Wednesday. The consent has been signed. The leg is th en marked. Preoperatively, we will get a full length femur x-ray to see where the tip of her femoral prosthesis is on the same right side. We will also need to follow her INR serially to make sure aster t she is reversed to an INR of around 1.3 or less prior to performing her surgery again scheduled on Wednesday morning. TD: 04/15/2018 16:52
[2018-04-15] MEDS: SODIUM CHLORIDE 0.9% 1,000 ML IV SCH (17:53)
[2018-04-15] MEDS: SODIUM CHLORIDE FLUSH 0.9% 10 ML SYRINGE IVP SCH ×2 (17:53→23:50)
[2018-04-15 20:32] LABS: BILIRUBIN,URINE NEGATIVE (NEGATIVE); GLUCOSE, URINE (UA) NEGATIVE (NEGATIVE); KETONES,URINE (UA) 15 mg/dL (NEGATIVE); LEUKOCYTE ESTERASE, URINE NEGATIVE (NEGATIVE); NITRITE,URINE NEGATIVE (NEGATIVE); OCCULT BLOOD,URINE SMALL (NEGATIVE); PROTEIN,URINE TRACE mg/dL (NEGATIVE); UROBILINOGEN,URINE 0.2 (NORMAL) E.U./dL (NORMAL)
[2018-04-15 20:36] LABS: CLARITY,URINE HAZY (CLEAR)
[2018-04-15 20:42] LABS: BACTERIA,URINE Many /HPF (None Seen); RBC,URINE 0-5 /HPF (0-5); SQUAMOUS EPITHELIAL CELL,UR RARE Squamous (<= Few)
[2018-04-15] MEDS: diltiaZEM CD 180 MG CAPSULE PO SCH (21:01)
[2018-04-15] MEDS: METOPROLOL SUCCINATE 50 MG TABLET PO SCH (21:01)
[2018-04-15] MEDS: LOSARTAN 50 MG TABLET PO SCH (21:01)
[2018-04-15] MEDS: MORPHINE 2 MG/ML SYRINGE IVP PRN (21:01)
[2018-04-15] MEDS: ZOLPIDEM 5 MG TABLET PO PRN (21:56)
[2018-04-16 04:58] LABS: BASOPHILS % (AUTO) 0.6 %; EOSINOPHILS # (AUTO) 0.2 10^3/uL (0.0-0.7); EOSINOPHILS % (AUTO) 2.8 %; HGB - HEMOGLOBIN 12.3 g/dL (12.0-16.0); LYMPHOCYTES # (AUTO) 0.7 10^3/uL (1.5-3.5); LYMPHOCYTES % (AUTO) 10.9 %; MEAN CORPUSCULAR HEMOGLOBIN 29.9 pg (27.0-31.0); MEAN CORPUSCULAR HGB CONC 34.8 g/dL (32.0-36.0); MEAN CORPUSCULAR VOLUME 85.9 fL (81.0-99.0); MEAN PLATELET VOLUME 7.5 fL (7.9-10.8); MONOCYTES # (AUTO) 0.7 10^3/uL (0.0-1.0); MONOCYTES % (AUTO) 10.3 %; NEUTROPHILS # (AUTO) 4.8 10^3/uL (1.5-6.6); NEUTROPHILS % (AUTO) 75.4 %; PLT - PLATELET COUNT 217 10^3/uL (130-450); RED BLOOD COUNT 4.11 10^6/uL (4.20-5.40); RED CELL DISTRIBUTION WIDTH 15.1 % (12.0-15.0); WHITE BLOOD COUNT 6.4 x10^3/uL (4.8-10.8)
[2018-04-16 05:06] LABS: ALBUMIN 3.8 g/dL (3.2-5.5); ALBUMIN/GLOBULIN RATIO 1.6 (1.0-2.2); BILIRUBIN,TOTAL 1.1 mg/dL (0.2-1.0); CALCIUM 8.5 mg/dL (8.5-10.3); CREATININE 0.4 mg/dL (0.4-1.0); MAGNESIUM 1.6 mg/dL (1.7-2.8); TOTAL PROTEIN 6.2 g/dL (6.7-8.2)
[2018-04-16 05:43] LABS: PT - PROTHROMBIN TIME 22.5 secs (9.9-12.6)
[2018-04-16] MEDS: MORPHINE 2 MG/ML SYRINGE IVP PRN ×3 (06:02→20:05)
[2018-04-16] MEDS: SODIUM CHLORIDE 0.9% 1,000 ML IV SCH ×3 (06:03→21:25)
[2018-04-16] MEDS ORDERED: POTASSIUM CHLORIDE 20 MEQ TABLET PO ONE (07:25)
[2018-04-16] MEDS ORDERED: MAGNESIUM OXIDE 400 MG TABLET PO SCH (08:00)
[2018-04-16] MEDS ORDERED: CHLORTHALIDONE 25 MG TABLET PO SCH (09:00)
[2018-04-16] MEDS: POLYETHYLENE GLYCOL 3350 17 GM PACKET PO SCH (09:17)
[2018-04-16] MEDS: LOSARTAN 50 MG TABLET PO SCH ×2 (09:19→20:05)
[2018-04-16] MEDS: METOPROLOL SUCCINATE 50 MG TABLET PO SCH ×2 (09:19→20:05)
[2018-04-16] MEDS: diltiaZEM CD 180 MG CAPSULE PO SCH ×2 (09:19→20:05)
[2018-04-16] MEDS: FLUoxetine 10 MG CAPSULE PO SCH (09:20)
[2018-04-16] MEDS: FAMOTIDINE 20 MG TABLET PO SCH (09:21)
[2018-04-16] MEDS: ENOXAPARIN 40 MG/0.4 ML SYRINGE SUBQ SCH (09:28)
--- NOTE | 2018-04-16 11:38 | PROVIDER PROGRESS NOTE ---
Subjective - Prog Note Date Prog Note Date: 04/16/18 - Subjective Pt reports feeling: No change Subjective: pt report when she moves her leg, she feel pain, otherwise pt does not have other complaints. No fever, chill, cough, chest pain, shortness of breath. Current Medications - Current Medications Current Medications: Active Medications Diltiazem HCl (Cardizem Cd) 180 mg PO BID [facility] Last Admin: 04/16/18 09:19 Dose: 180 mg Enoxaparin Sodium (Lovenox) 40 mg SUBQ DAILY [facility] Last Admin: 04/16/18 09:28 Dose: 40 mg Famotidine (Pepcid) 20 mg PO DAILY [facility] Last Admin: 04/16/18 09:21 Dose: 20 mg Fluoxetine HCl (Prozac) 40 mg PO DAILY [facility] Last Admin: 04/16/18 09:20 Dose: 40 mg Cefazolin Sodium/Dextrose (Ancef 2 Gm/50 Ml) 2 gm in 50 mls @ 100 mls/hr IV ONCE [facility] Stop: 04/18/18 11:00 Sodium Chloride (Normal Saline 0.9%) 1,000 mls @ 75 mls/hr IV .[id number] [facility] Last Admin: 04/16/18 06:03 Dose: 75 mls/hr Losartan Potassium (Cozaar) 50 mg PO BID [facility] Last Admin: 04/16/18 09:19 Dose: 50 mg Metoprolol Succinate (Toprol Xl) 50 mg PO BID [facility] Last Admin: 04/16/18 09:19 Dose: 50 mg Morphine Sulfate (Morphine) 2 mg IVP Q2H PRN PRN Reason: Pain 8 to 10 Last Admin: 04/16/18 06:02 Dose: 2 mg Ondansetron HCl (Zofran Inj) 4 mg IVP Q6HR PRN PRN Reason: Nausea / Vomiting Oxycodone HCl (Roxicodone) 5 mg PO Q4HR PRN PRN Reason: Pain 5 to 7 Polyethylene Glycol (Miralax) 17 gm PO DAILY [facility] Last Admin: 04/16/18 09:17 Dose: 17 gm Sodium Chloride (Normal Saline Flush 0.9%) 10 ml IVP PRN PRN PRN Reason: NEEDED PER PROVIDER ORDERS Sodium Chloride (Normal Saline Flush 0.9%) 10 ml IVP 0100,0900,1700 [facility] Last Admin: 04/15/18 23:50 Dose: Not Given Zolpidem Tartrate (Ambien) 5 mg PO QPM PRN PRN Reason: sleep Last Admin: 04/15/18 21:56 Dose: 5 mg Losartan [Cozaar] 50 mg PO BID 11/02/14 Metoprolol Succinate 50 mg PO BID 11/02/14 Warfarin [Coumadin] 5 mg PO [id number] 11/02/14 Zolpidem Tartrate [Ambien] 5 mg PO QPM PRN 11/02/14 diltiaZEM CD [Cardizem Cd] 180 mg PO BID 11/02/14 Chlorthalidone [Chlorthalidone] 25 mg PO DAILY 04/15/18 FLUoxetine [PROzac] 40 mg PO DAILY 04/15/18 Warfarin Sodium [Warfarin Sodium] 7.5 mg PO MOTH 04/15/18 Objective - Vital Signs/Intake & Output Reviewed Vital Signs: Yes Vital Signs: Vital Signs x48h Temp Pulse Resp BP Pulse Ox 04/16/18 07:42 36.9 C 78 18 134/58 H 97 04/16/18 06:12 36.8 C 69 16 128/52 L 98 Intake & Output: Intake & Output 04/13/18 04/14/18 04/15/18 04/16/18 23:59 23:59 23:59 23:59 Intake Total 750 1092.5 Output Total 100 1300 Balance 650 -207.5 - Objective General Appearance: positive: No acute distress, Alert. negative: Lethargic Eyes Bilateral: positive: Normal inspection, PERRL, No lid inflammation, Conjunctivae nml ENT: positive: ENT inspection nml, Pharynx nml, No signs of dehydration. negative: Purulent nasal drainage, Pharyngeal erythema, Oral lesions Neck: positive: Nml inspection, Thyroid nml, No JVD, Trachea midline. negative : Thyromegaly, Lymphadenopathy (R), Lymphadenopathy (L), Stiff neck, Swelling/ bruising, Tracheal deviation Respiratory: positive: Chest non-tender, No respiratory distress, Breath sounds nml. negative: Wheezes, Rales, Rhonchi Cardiovascular: positive: Regular rate & rhythm, No murmur, No gallop. negative : Irregularly irregular, Extrasystoles, Tachycardia, Bradycardia, JVD present, Systolic murmur, Diastolic murmur Peripheral Pulses: 2+ Radial (R), 2+ Radial (L), 2+ Dorsalis pedis (R), 2+ Dorsalis pedis (L) Abdomen: positive: Non-tender, No organomegaly, Nml bowel sounds, No distention. negative: Tenderness, Guarding, Rebound Back: positive: Nml inspection. negative: CVA tenderness (R), CVA tenderness (L ) Skin: positive: Color nml, No rash, Warm, Dry. negative: Cyanosis, Diaphoresis , Pallor Extremities: positive: Non-tender, Full ROM, Nml appearance. negative: Calf tenderness, Joint swelling, Jose's sign/cords Neurologic/Psychiatric: positive: Oriented x3, Sensation nml, Mood/affect nml. negative: Weakness, Sensory loss, Facial droop, Slurred/abnml speech, Depressed mood/affect - Lab Results Fish Bones: 04/16/18 04:40 04/16/18 04:40 Other Labs: Lab Results x24hrs 04/16/18 04/16/18 04/16/18 Range/Units 04:40 04:40 04:40 WBC 6.4 (4.8-10.8) x10^3/uL RBC 4.11 L (4.20-5.40) 10^6/uL Hgb 12.3 (12.0-16.0) g/dL Hct 35.3 L (37.0-47.0) % MCV 85.9 (81.0-99.0) fL MCH 29.9 (27.0-31.0) pg MCHC 34.8 (32.0-36.0) g/dL RDW 15.1 H (12.0-15.0) % Plt Count 217 (130-450) 10^3/uL MPV 7.5 L (7.9-10.8) fL Neut # (Auto) 4.8 (1.5-6.6) 10^3/uL Lymph # (Auto) 0.7 L (1.5-3.5) 10^3/uL [place] # (Auto) 0.7 (0.0-1.0) 10^3/uL Eos # (Auto) 0.2 (0.0-0.7) 10^3/uL Baso # (Auto) 0.0 (0.0-0.1) 10^3/uL Absolute Nucleated RBC 0.00 x10^3/uL Nucleated RBC % 0.0 /100WBC PT 22.5 H (9.9-12.6) secs INR 2.0 H (0.8-1.2) Sodium 121 L (135-145) mmol/L Potassium 3.4 L (3.5-5.0) mmol/L Chloride 89 L (101-111) mmol/L Carbon Dioxide 24 (21-32) mmol/L Anion Gap 8.0 (6-13) BUN 13 (6-20) mg/dL Creatinine 0.4 (0.4-1.0) mg/dL Estimated GFR (MDRD) 156 (>89) Glucose 123 H (70-100) mg/dL Calcium 8.5 (8.5-10.3) mg/dL Magnesium 1.6 L (1.7-2.8) mg/dL Total Bilirubin 1.1 H (0.2-1.0) mg/dL AST 16 (10-42) IU/L ALT 13 (10-60) IU/L Alkaline Phosphatase 58 (42-121) IU/L Total Protein 6.2 L (6.7-8.2) g/dL Albumin 3.8 (3.2-5.5) g/dL Globulin 2.4 (2.1-4.2) g/dL Albumin/Globulin Ratio 1.6 (1.0-2.2) Urine Color Urine Clarity (CLEAR) Urine pH (5.0-7.5) PH Ur Specific [place] (1.002-1.030) Urine Protein (NEGATIVE) mg/dL Urine Glucose (UA) (NEGATIVE) mg/dL Urine Ketones (NEGATIVE) mg/dL Urine Occult Blood (NEGATIVE) Urine Nitrite (NEGATIVE) Urine Bilirubin (NEGATIVE) Urine Urobilinogen (NORMAL) E.U./dL Ur Leukocyte Esterase (NEGATIVE) Urine RBC (0-5) /HPF Urine WBC (0-5) /HPF Ur Squamous Epith Cells (<= Few) Urine Bacteria (None Seen) /HPF Ur Microscopic Review Urine Culture Comments 04/15/18 Range/Units 20:10 WBC (4.8-10.8) x10^3/uL RBC (4.20-5.40) 10^6/uL Hgb (12.0-16.0) g/dL Hct (37.0-47.0) % MCV (81.0-99.0) fL MCH (27.0-31.0) pg MCHC (32.0-36.0) g/dL RDW (12.0-15.0) % Plt Count (130-450) 10^3/uL MPV (7.9-10.8) fL Neut # (Auto) (1.5-6.6) 10^3/uL Lymph # (Auto) (1.5-3.5) 10^3/uL [place] # (Auto) (0.0-1.0) 10^3/uL Eos # (Auto) (0.0-0.7) 10^3/uL Baso # (Auto) (0.0-0.1) 10^3/uL Absolute Nucleated RBC x10^3/uL Nucleated RBC % /100WBC PT (9.9-12.6) secs INR (0.8-1.2) Sodium (135-145) mmol/L Potassium (3.5-5.0) mmol/L Chloride (101-111) mmol/L Carbon Dioxide (21-32) mmol/L Anion Gap (6-13) BUN (6-20) mg/dL Creatinine (0.4-1.0) mg/dL Estimated GFR (MDRD) (>89) Glucose (70-100) mg/dL Calcium (8.5-10.3) mg/dL Magnesium (1.7-2.8) mg/dL Total Bilirubin (0.2-1.0) mg/dL AST (10-42) IU/L ALT (10-60) IU/L Alkaline Phosphatase (42-121) IU/L Total Protein (6.7-8.2) g/dL Albumin (3.2-5.5) g/dL Globulin (2.1-4.2) g/dL Albumin/Globulin Ratio (1.0-2.2) Urine Color YELLOW Urine Clarity HAZY (CLEAR) Urine pH 7.0 (5.0-7.5) PH Ur Specific [place] 1.020 (1.002-1.030) Urine Protein TRACE (NEGATIVE) mg/dL Urine Glucose (UA) NEGATIVE (NEGATIVE) mg/dL Urine Ketones 15 H (NEGATIVE) mg/dL Urine Occult Blood SMALL H (NEGATIVE) Urine Nitrite NEGATIVE (NEGATIVE) Urine Bilirubin NEGATIVE (NEGATIVE) Urine Urobilinogen 0.2 (NORMAL) (NORMAL) E.U./dL Ur Leukocyte Esterase NEGATIVE (NEGATIVE) Urine RBC 0-5 (0-5) /HPF Urine WBC 4-5 (0-5) /HPF Ur Squamous Epith Cells RARE Squamous (<= Few) Urine Bacteria Many H (None Seen) /HPF Ur Microscopic Review INDICATED Urine Culture Comments INDICATED ABX Reporting Has patient been on IV antibiotics over the past 48 hours?: No Assessment/Plan - Problem List (1) Closed right femoral fracture Impression: (1) Closed right femoral fracture Conclusion/Plan: 04/16 surgeon plan to do surgery on Wednesday, he is waiting for some equipment. Pt' s INR is 1.9 yesterday, pt was given 10mg vitamin K but today INR is 2.0, will continue check PT/INR, may give IV of vitamin K if INR is still high consult with orthopedics, will followup surgeon pain control order vitmin K to reverse Coumadin effect (2) Atrial fibrillation Conclusion/Plan: 04/16 HR is stable, hold Coumadin, continue to check PT/INR, may give IV of Vitamin K if needed HR is stable, continue metoprolol, Cardizem hold Coumadin daily PT/INR add vitamin K, today INR is 1.9 tele, vital monitor (3) Hyponatremia Conclusion/Plan: 04/16 Na 121 today, chronic continue IV of NS pt has chronic hyponatremia hold HCTZ start IVF of NS daily lab monitor (4) Hypokalemia Conclusion/Plan: K 3.4, will replacement daily Potassium check (5) HTN (hypertension) Conclusion/Plan: stable, continue home BP meds (6) Anxiety Conclusion/Plan: stable, resume [facility] Qualifiers: Encounter type: initial encounter Femur location: distal Fracture morphology: unspecified fracture morphology Qualified Code(s): S72.401A - Unspecified fracture of lower end of right femur, initial encounter for closed fracture
[2018-04-16] MEDS: SODIUM CHLORIDE FLUSH 0.9% 10 ML SYRINGE IVP SCH ×4 (13:57→23:52)
--- NOTE | 2018-04-16 14:08 | PROVIDER PROGRESS NOTE ---
Subjective - Prog Note Date Prog Note Date: 04/16/18 Prog Note Time: 14:05 - Subjective Pt reports feeling: Improved (Less pain in knee immobilizer.) Objective - Vital Signs/Intake & Output Vital Signs: Vital Signs x48h Temp Pulse Resp BP Pulse Ox 04/16/18 07:42 36.9 C 78 18 134/58 H 97 04/16/18 06:12 36.8 C 69 16 128/52 L 98 Intake & Output: Intake & Output 04/13/18 04/14/18 04/15/18 04/16/18 23:59 23:59 23:59 23:59 Intake Total 750 1832.5 Output Total 100 1300 Balance 650 532.5 - Lab Results Fish Bones: 04/16/18 04:40 04/16/18 04:40 Other Labs: Lab Results x24hrs 04/16/18 04/16/18 04/16/18 Range/Units 04:40 04:40 04:40 WBC 6.4 (4.8-10.8) x10^3/uL RBC 4.11 L (4.20-5.40) 10^6/uL Hgb 12.3 (12.0-16.0) g/dL Hct 35.3 L (37.0-47.0) % MCV 85.9 (81.0-99.0) fL MCH 29.9 (27.0-31.0) pg MCHC 34.8 (32.0-36.0) g/dL RDW 15.1 H (12.0-15.0) % Plt Count 217 (130-450) 10^3/uL MPV 7.5 L (7.9-10.8) fL Neut # (Auto) 4.8 (1.5-6.6) 10^3/uL Lymph # (Auto) 0.7 L (1.5-3.5) 10^3/uL [place] # (Auto) 0.7 (0.0-1.0) 10^3/uL Eos # (Auto) 0.2 (0.0-0.7) 10^3/uL Baso # (Auto) 0.0 (0.0-0.1) 10^3/uL Absolute Nucleated RBC 0.00 x10^3/uL Nucleated RBC % 0.0 /100WBC PT 22.5 H (9.9-12.6) secs INR 2.0 H (0.8-1.2) Sodium 121 L (135-145) mmol/L Potassium 3.4 L (3.5-5.0) mmol/L Chloride 89 L (101-111) mmol/L Carbon Dioxide 24 (21-32) mmol/L Anion Gap 8.0 (6-13) BUN 13 (6-20) mg/dL Creatinine 0.4 (0.4-1.0) mg/dL Estimated GFR (MDRD) 156 (>89) Glucose 123 H (70-100) mg/dL Calcium 8.5 (8.5-10.3) mg/dL Magnesium 1.6 L (1.7-2.8) mg/dL Total Bilirubin 1.1 H (0.2-1.0) mg/dL AST 16 (10-42) IU/L ALT 13 (10-60) IU/L Alkaline Phosphatase 58 (42-121) IU/L Total Protein 6.2 L (6.7-8.2) g/dL Albumin 3.8 (3.2-5.5) g/dL Globulin 2.4 (2.1-4.2) g/dL Albumin/Globulin Ratio 1.6 (1.0-2.2) Urine Color Urine Clarity (CLEAR) Urine pH (5.0-7.5) PH Ur Specific [place] (1.002-1.030) Urine Protein (NEGATIVE) mg/dL Urine Glucose (UA) (NEGATIVE) mg/dL Urine Ketones (NEGATIVE) mg/dL Urine Occult Blood (NEGATIVE) Urine Nitrite (NEGATIVE) Urine Bilirubin (NEGATIVE) Urine Urobilinogen (NORMAL) E.U./dL Ur Leukocyte Esterase (NEGATIVE) Urine RBC (0-5) /HPF Urine WBC (0-5) /HPF Ur Squamous Epith Cells (<= Few) Urine Bacteria (None Seen) /HPF Ur Microscopic Review Urine Culture Comments 04/15/18 Range/Units 20:10 WBC (4.8-10.8) x10^3/uL RBC (4.20-5.40) 10^6/uL Hgb (12.0-16.0) g/dL Hct (37.0-47.0) % MCV (81.0-99.0) fL MCH (27.0-31.0) pg MCHC (32.0-36.0) g/dL RDW (12.0-15.0) % Plt Count (130-450) 10^3/uL MPV (7.9-10.8) fL Neut # (Auto) (1.5-6.6) 10^3/uL Lymph # (Auto) (1.5-3.5) 10^3/uL [place] # (Auto) (0.0-1.0) 10^3/uL Eos # (Auto) (0.0-0.7) 10^3/uL Baso # (Auto) (0.0-0.1) 10^3/uL Absolute Nucleated RBC x10^3/uL Nucleated RBC % /100WBC PT (9.9-12.6) secs INR (0.8-1.2) Sodium (135-145) mmol/L Potassium (3.5-5.0) mmol/L Chloride (101-111) mmol/L Carbon Dioxide (21-32) mmol/L Anion Gap (6-13) BUN (6-20) mg/dL Creatinine (0.4-1.0) mg/dL Estimated GFR (MDRD) (>89) Glucose (70-100) mg/dL Calcium (8.5-10.3) mg/dL Magnesium (1.7-2.8) mg/dL Total Bilirubin (0.2-1.0) mg/dL AST (10-42) IU/L ALT (10-60) IU/L Alkaline Phosphatase (42-121) IU/L Total Protein (6.7-8.2) g/dL Albumin (3.2-5.5) g/dL Globulin (2.1-4.2) g/dL Albumin/Globulin Ratio (1.0-2.2) Urine Color YELLOW Urine Clarity HAZY (CLEAR) Urine pH 7.0 (5.0-7.5) PH Ur Specific [place] 1.020 (1.002-1.030) Urine Protein TRACE (NEGATIVE) mg/dL Urine Glucose (UA) NEGATIVE (NEGATIVE) mg/dL Urine Ketones 15 H (NEGATIVE) mg/dL Urine Occult Blood SMALL H (NEGATIVE) Urine Nitrite NEGATIVE (NEGATIVE) Urine Bilirubin NEGATIVE (NEGATIVE) Urine Urobilinogen 0.2 (NORMAL) (NORMAL) E.U./dL Ur Leukocyte Esterase NEGATIVE (NEGATIVE) Urine RBC 0-5 (0-5) /HPF Urine WBC 4-5 (0-5) /HPF Ur Squamous Epith Cells RARE Squamous (<= Few) Urine Bacteria Many H (None Seen) /HPF Ur Microscopic Review INDICATED Urine Culture Comments INDICATED - Other Results/Comments Other Results/Comments: EXAM: Right knee in immobilizer. Moving toes well. Sensation intact. Good cap filling Assessment/Plan - Problem List (1) Closed right femoral fracture Impression: Stable. PLAN: Wednesday surgery for ORIF of right distal femur fracture, if INR <1.3 Qualifiers: Encounter type: initial encounter Femur location: distal Fracture morphology: unspecified fracture morphology Qualified Code(s): S72.401A - Unspecified fracture of lower end of right femur, initial encounter for closed fracture
[2018-04-16] MEDS ORDERED: ACETAMINOPHEN 325 MG TABLET PO PRN (16:31)
[2018-04-16] MEDS: NITROFURANTOIN MACRO 100 MG CAPSULE PO SCH ×2 (16:59→20:05)
[2018-04-16] MEDS: ZOLPIDEM 5 MG TABLET PO PRN (20:19)
[2018-04-17 04:33] LABS: BASOPHILS % (AUTO) 0.8 %; EOSINOPHILS # (AUTO) 0.1 10^3/uL (0.0-0.7); EOSINOPHILS % (AUTO) 2.2 %; HGB - HEMOGLOBIN 11.5 g/dL (12.0-16.0); LYMPHOCYTES # (AUTO) 0.7 10^3/uL (1.5-3.5); LYMPHOCYTES % (AUTO) 12.2 %; MEAN CORPUSCULAR HEMOGLOBIN 29.5 pg (27.0-31.0); MEAN CORPUSCULAR HGB CONC 33.8 g/dL (32.0-36.0); MEAN CORPUSCULAR VOLUME 87.2 fL (81.0-99.0); MEAN PLATELET VOLUME 7.1 fL (7.9-10.8); MONOCYTES # (AUTO) 0.7 10^3/uL (0.0-1.0); MONOCYTES % (AUTO) 11.9 %; NEUTROPHILS # (AUTO) 4.1 10^3/uL (1.5-6.6); NEUTROPHILS % (AUTO) 72.9 %; PLT - PLATELET COUNT 194 10^3/uL (130-450); RED BLOOD COUNT 3.92 10^6/uL (4.20-5.40); RED CELL DISTRIBUTION WIDTH 14.9 % (12.0-15.0); WHITE BLOOD COUNT 5.6 x10^3/uL (4.8-10.8)
[2018-04-17 04:44] LABS: ALBUMIN 3.4 g/dL (3.2-5.5); ALBUMIN/GLOBULIN RATIO 1.2 (1.0-2.2); BILIRUBIN,TOTAL 1.5 mg/dL (0.2-1.0); CALCIUM 8.4 mg/dL (8.5-10.3); CREATININE 0.4 mg/dL (0.4-1.0); TOTAL PROTEIN 6.3 g/dL (6.7-8.2)
[2018-04-17 05:14] LABS: INR 1.2 (0.8-1.2); PT - PROTHROMBIN TIME 13.2 secs (9.9-12.6)
[2018-04-17] MEDS: MORPHINE 2 MG/ML SYRINGE IVP PRN (06:13)
[2018-04-17] MEDS ORDERED: DOCUSATE SODIUM 250 MG CAPSULE PO SCH (09:00)
--- NOTE | 2018-04-17 09:48 | PROVIDER PROGRESS NOTE ---
Subjective - Prog Note Date Prog Note Date: 04/17/18 Prog Note Time: 09:45 - Subjective Pt reports feeling: No change Objective - Vital Signs/Intake & Output Vital Signs: Vital Signs x48h Temp Pulse Resp BP Pulse Ox 04/17/18 07:39 36.7 C 70 18 136/71 H 98 Intake & Output: Intake & Output 04/14/18 04/15/18 04/16/18 04/17/18 23:59 23:59 23:59 23:59 Intake Total 750 3432.5 1240 Output Total 100 2300 250 Balance 650 1132.5 990 - Lab Results Fish Bones: 04/17/18 04:15 04/17/18 04:15 Other Labs: Lab Results x24hrs 04/17/18 04/17/18 04/17/18 Range/Units 04:15 04:15 04:15 WBC 5.6 (4.8-10.8) x10^3/uL RBC 3.92 L (4.20-5.40) 10^6/uL Hgb 11.5 L (12.0-16.0) g/dL Hct 34.1 L (37.0-47.0) % MCV 87.2 (81.0-99.0) fL MCH 29.5 (27.0-31.0) pg MCHC 33.8 (32.0-36.0) g/dL RDW 14.9 (12.0-15.0) % Plt Count 194 (130-450) 10^3/uL MPV 7.1 L (7.9-10.8) fL Neut # (Auto) 4.1 (1.5-6.6) 10^3/uL Lymph # (Auto) 0.7 L (1.5-3.5) 10^3/uL [place] # (Auto) 0.7 (0.0-1.0) 10^3/uL Eos # (Auto) 0.1 (0.0-0.7) 10^3/uL Baso # (Auto) 0.0 (0.0-0.1) 10^3/uL Absolute Nucleated RBC 0.00 x10^3/uL Nucleated RBC % 0.0 /100WBC PT 13.2 H (9.9-12.6) secs INR 1.2 (0.8-1.2) Sodium 122 L (135-145) mmol/L Potassium 3.5 (3.5-5.0) mmol/L Chloride 91 L (101-111) mmol/L Carbon Dioxide 24 (21-32) mmol/L Anion Gap 7.0 (6-13) BUN 10 (6-20) mg/dL Creatinine 0.4 (0.4-1.0) mg/dL Estimated GFR (MDRD) 156 (>89) Glucose 111 H (70-100) mg/dL Calcium 8.4 L (8.5-10.3) mg/dL Total Bilirubin 1.5 H (0.2-1.0) mg/dL AST 14 (10-42) IU/L ALT 11 (10-60) IU/L Alkaline Phosphatase 54 (42-121) IU/L Total Protein 6.3 L (6.7-8.2) g/dL Albumin 3.4 (3.2-5.5) g/dL Globulin 2.9 (2.1-4.2) g/dL Albumin/Globulin Ratio 1.2 (1.0-2.2) - Other Results/Comments Other Results/Comments: EXAM: Right leg: In brace. N/V ok distally. INR = 1.2 Assessment/Plan - Problem List (1) Closed right femoral fracture Impression: Stable. No interval change in exam PLAN: Will proceed to ORIF fracture Wednesday AM. Consent signed. Leg marked. Qualifiers: Encounter type: initial encounter Femur location: distal Fracture morphology: unspecified fracture morphology Qualified Code(s): S72.401A - Unspecified fracture of lower end of right femur, initial encounter for closed fracture
[2018-04-17] MEDS: FAMOTIDINE 20 MG TABLET PO SCH (09:51)
[2018-04-17] MEDS: diltiaZEM CD 180 MG CAPSULE PO SCH ×2 (09:51→20:47)
[2018-04-17] MEDS: LOSARTAN 50 MG TABLET PO SCH ×2 (09:51→20:47)
[2018-04-17] MEDS: ENOXAPARIN 40 MG/0.4 ML SYRINGE SUBQ SCH (09:51)
[2018-04-17] MEDS: POLYETHYLENE GLYCOL 3350 17 GM PACKET PO SCH (09:52)
[2018-04-17] MEDS: NITROFURANTOIN MACRO 100 MG CAPSULE PO SCH ×2 (09:52→20:49)
[2018-04-17] MEDS: FLUoxetine 10 MG CAPSULE PO SCH (09:52)
[2018-04-17] MEDS: SODIUM CHLORIDE FLUSH 0.9% 10 ML SYRINGE IVP SCH ×3 (09:52→23:26)
[2018-04-17] MEDS: METOPROLOL SUCCINATE 50 MG TABLET PO SCH ×2 (09:52→20:47)
[2018-04-17] MEDS: SENNA 8.6 MG TABLET PO SCH (10:05)
--- NOTE | 2018-04-17 10:29 | PROVIDER PROGRESS NOTE ---
Subjective - Prog Note Date Prog Note Date: 04/17/18 - Subjective Pt reports feeling: No change Subjective: pt's INR is down to 1.2. no other complaints, ready for procedure. Current Medications - Current Medications Current Medications: Active Medications Acetaminophen (Tylenol) 650 mg PO Q4HR PRN PRN Reason: Pain or Fever > 38C (100.4F) Diltiazem HCl (Cardizem Cd) 180 mg PO BID [facility] Last Admin: 04/17/18 09:51 Dose: 180 mg Docusate Sodium (Colace 250mg Capsule) 250 - 500 mg PO DAILY [facility] Last Admin: 04/17/18 09:51 Dose: 250 mg Enoxaparin Sodium (Lovenox) 40 mg SUBQ DAILY [facility] Last Admin: 04/17/18 09:51 Dose: 40 mg Famotidine (Pepcid) 20 mg PO DAILY [facility] Last Admin: 04/17/18 09:51 Dose: 20 mg Fluoxetine HCl (Prozac) 40 mg PO DAILY [facility] Last Admin: 04/17/18 09:52 Dose: 40 mg Cefazolin Sodium/Dextrose (Ancef 2 Gm/50 Ml) 2 gm in 50 mls @ 100 mls/hr IV ONCE [facility] Stop: 04/18/18 11:00 Losartan Potassium (Cozaar) 50 mg PO BID [facility] Last Admin: 04/17/18 09:51 Dose: 50 mg Metoprolol Succinate (Toprol Xl) 50 mg PO BID [facility] Last Admin: 04/17/18 09:52 Dose: 50 mg Morphine Sulfate (Morphine) 2 mg IVP Q2H PRN PRN Reason: Pain 8 to 10 Last Admin: 04/17/18 06:13 Dose: 2 mg Nitrofurantoin (Macrobid) 100 mg PO BID [facility] Last Admin: 04/17/18 09:52 Dose: 100 mg Ondansetron HCl (Zofran Inj) 4 mg IVP Q6HR PRN PRN Reason: Nausea / Vomiting Oxycodone HCl (Roxicodone) 5 mg PO Q4HR PRN PRN Reason: Pain 5 to 7 Polyethylene Glycol (Miralax) 17 gm PO DAILY [facility] Last Admin: 04/17/18 09:52 Dose: 17 gm Senna (Senokot) 8.6 - 17.2 mg PO DAILY [facility] Last Admin: 04/17/18 10:05 Dose: 8.6 mg Sodium Chloride (Normal Saline Flush 0.9%) 10 ml IVP PRN PRN PRN Reason: NEEDED PER PROVIDER ORDERS Sodium Chloride (Normal Saline Flush 0.9%) 10 ml IVP 0100,0900,1700 [facility] Last Admin: 04/17/18 09:52 Dose: 10 ml Zolpidem Tartrate (Ambien) 5 mg PO QPM PRN PRN Reason: sleep Last Admin: 04/16/18 20:19 Dose: 5 mg Losartan [Cozaar] 50 mg PO BID 11/02/14 Metoprolol Succinate 50 mg PO BID 11/02/14 Warfarin [Coumadin] 5 mg PO SUTUWEFRSA 11/02/14 Zolpidem Tartrate [Ambien] 5 mg PO QPM PRN 11/02/14 diltiaZEM CD [Cardizem Cd] 180 mg PO BID 11/02/14 Chlorthalidone [Chlorthalidone] 25 mg PO DAILY 04/15/18 FLUoxetine [PROzac] 40 mg PO DAILY 04/15/18 Warfarin Sodium [Warfarin Sodium] 7.5 mg PO MOTH 04/15/18 Objective - Vital Signs/Intake & Output Reviewed Vital Signs: Yes Vital Signs: Vital Signs x48h Temp Pulse Resp BP Pulse Ox 04/17/18 07:39 36.7 C 70 18 136/71 H 98 Intake & Output: Intake & Output 04/14/18 04/15/18 04/16/18 04/17/18 23:59 23:59 23:59 23:59 Intake Total 750 3432.5 1240 Output Total 100 2300 250 Balance 650 1132.5 990 - Objective General Appearance: positive: No acute distress, Alert. negative: Lethargic Eyes Bilateral: positive: Normal inspection, PERRL, No lid inflammation, Conjunctivae nml ENT: positive: ENT inspection nml, Pharynx nml, No signs of dehydration. negative: Purulent nasal drainage, Pharyngeal erythema, Oral lesions Neck: positive: Nml inspection, Thyroid nml, No JVD, Trachea midline. negative : Thyromegaly, Lymphadenopathy (R), Lymphadenopathy (L), Stiff neck, Carotid bruit, Swelling/bruising, Tracheal deviation Respiratory: positive: Chest non-tender, No respiratory distress, Breath sounds nml. negative: Wheezes, Rales, Rhonchi Cardiovascular: positive: Regular rate & rhythm, No murmur, No gallop. negative : Irregularly irregular, Extrasystoles, Tachycardia, Bradycardia, JVD present, Systolic murmur, Diastolic murmur Peripheral Pulses: 2+ Radial (R), 2+ Radial (L), 2+ Dorsalis pedis (R), 2+ Dorsalis pedis (L) Abdomen: positive: Non-tender, No organomegaly, Nml bowel sounds, No distention. negative: Tenderness, Guarding, Rebound Back: positive: Nml inspection. negative: CVA tenderness (R), CVA tenderness (L ) Skin: positive: Color nml, No rash, Warm, Dry. negative: Cyanosis, Diaphoresis , Pallor Extremities: positive: Non-tender, Nml appearance. negative: Calf tenderness, Joint swelling, Jose's sign/cords Neurologic/Psychiatric: positive: Oriented x3, Sensation nml, Mood/affect nml. negative: Weakness, Sensory loss, Facial droop, Slurred/abnml speech, Depressed mood/affect - Lab Results Fish Bones: 04/17/18 04:15 04/17/18 04:15 Other Labs: Lab Results x24hrs 04/17/18 04/17/18 04/17/18 Range/Units 04:15 04:15 04:15 WBC 5.6 (4.8-10.8) x10^3/uL RBC 3.92 L (4.20-5.40) 10^6/uL Hgb 11.5 L (12.0-16.0) g/dL Hct 34.1 L (37.0-47.0) % MCV 87.2 (81.0-99.0) fL MCH 29.5 (27.0-31.0) pg MCHC 33.8 (32.0-36.0) g/dL RDW 14.9 (12.0-15.0) % Plt Count 194 (130-450) 10^3/uL MPV 7.1 L (7.9-10.8) fL Neut # (Auto) 4.1 (1.5-6.6) 10^3/uL Lymph # (Auto) 0.7 L (1.5-3.5) 10^3/uL [place] # (Auto) 0.7 (0.0-1.0) 10^3/uL Eos # (Auto) 0.1 (0.0-0.7) 10^3/uL Baso # (Auto) 0.0 (0.0-0.1) 10^3/uL Absolute Nucleated RBC 0.00 x10^3/uL Nucleated RBC % 0.0 /100WBC PT 13.2 H (9.9-12.6) secs INR 1.2 (0.8-1.2) Sodium 122 L (135-145) mmol/L Potassium 3.5 (3.5-5.0) mmol/L Chloride 91 L (101-111) mmol/L Carbon Dioxide 24 (21-32) mmol/L Anion Gap 7.0 (6-13) BUN 10 (6-20) mg/dL Creatinine 0.4 (0.4-1.0) mg/dL Estimated GFR (MDRD) 156 (>89) Glucose 111 H (70-100) mg/dL Calcium 8.4 L (8.5-10.3) mg/dL Total Bilirubin 1.5 H (0.2-1.0) mg/dL AST 14 (10-42) IU/L ALT 11 (10-60) IU/L Alkaline Phosphatase 54 (42-121) IU/L Total Protein 6.3 L (6.7-8.2) g/dL Albumin 3.4 (3.2-5.5) g/dL Globulin 2.9 (2.1-4.2) g/dL Albumin/Globulin Ratio 1.2 (1.0-2.2) ABX Reporting Has patient been on IV antibiotics over the past 48 hours?: Yes Assessment/Plan - Problem List (1) Closed right femoral fracture Impression: Conclusion/Plan: 04/17, INR is down to 1.2, ready for procedure, procedure per orthopedics. 04/16 surgeon plan to do surgery on Wednesday, he is waiting for some equipment. Pt' s INR is 1.9 yesterday, pt was given 10mg vitamin K but today INR is 2.0, will continue check PT/INR, may give IV of vitamin K if INR is still high consult with orthopedics, will followup surgeon pain control order vitmin K to reverse Coumadin effect (2) Atrial fibrillation Conclusion/Plan: 04/16 HR is stable, hold Coumadin, continue to check PT/INR, may give IV of Vitamin K if needed HR is stable, continue metoprolol, Cardizem hold Coumadin daily PT/INR add vitamin K, today INR is 1.9 tele, vital monitor (3) Hyponatremia Conclusion/Plan: 04/17 chronic, continue IVF of NS, lab monitor 04/16 Na 121 today, chronic continue IV of NS pt has chronic hyponatremia hold HCTZ start IVF of NS daily lab monitor (4) Hypokalemia Conclusion/Plan: 04/17 resolved K 3.4, will replacement daily Potassium check (5) HTN (hypertension) Conclusion/Plan: stable, continue home BP meds (6) Anxiety Conclusion/Plan: stable, resume Prosac Qualifiers: Encounter type: initial encounter Femur location: distal Fracture morphology: unspecified fracture morphology Qualified Code(s): S72.401A - Unspecified fracture of lower end of right femur, initial encounter for closed fracture
[2018-04-17] MEDS ORDERED: MAGNESIUM HYDROXIDE 2,400 MG/30 ML UDC PO ONE (18:14)
[2018-04-17] MEDS: ZOLPIDEM 5 MG TABLET PO PRN (20:58)
[2018-04-17] MEDS ORDERED: SODIUM CHLORIDE 0.9% 1,000 ML IV SCH (21:00)
[2018-04-17 21:31] LABS: INR 1.1 (0.8-1.2); PT - PROTHROMBIN TIME 12.4 secs (9.9-12.6)
[2018-04-18 05:32] LABS: BASOPHILS % (AUTO) 0.6 %; EOSINOPHILS # (AUTO) 0.2 10^3/uL (0.0-0.7); EOSINOPHILS % (AUTO) 3.3 %; HGB - HEMOGLOBIN 10.9 g/dL (12.0-16.0); LYMPHOCYTES # (AUTO) 0.7 10^3/uL (1.5-3.5); LYMPHOCYTES % (AUTO) 12.5 %; MEAN CORPUSCULAR HEMOGLOBIN 29.9 pg (27.0-31.0); MEAN CORPUSCULAR HGB CONC 34.7 g/dL (32.0-36.0); MEAN CORPUSCULAR VOLUME 86.1 fL (81.0-99.0); MEAN PLATELET VOLUME 7.3 fL (7.9-10.8); MONOCYTES # (AUTO) 0.7 10^3/uL (0.0-1.0); MONOCYTES % (AUTO) 12.5 %; NEUTROPHILS # (AUTO) 3.9 10^3/uL (1.5-6.6); NEUTROPHILS % (AUTO) 71.1 %; PLT - PLATELET COUNT 207 10^3/uL (130-450); RED BLOOD COUNT 3.66 10^6/uL (4.20-5.40); RED CELL DISTRIBUTION WIDTH 14.8 % (12.0-15.0); WHITE BLOOD COUNT 5.5 x10^3/uL (4.8-10.8)
[2018-04-18 05:44] LABS: ALBUMIN 3.3 g/dL (3.2-5.5); ALBUMIN/GLOBULIN RATIO 1.3 (1.0-2.2); BILIRUBIN,TOTAL 0.9 mg/dL (0.2-1.0); CALCIUM 8.3 mg/dL (8.5-10.3); CREATININE 0.4 mg/dL (0.4-1.0); TOTAL PROTEIN 5.8 g/dL (6.7-8.2)
[2018-04-18 05:51] LABS: INR 1.1 (0.8-1.2); PT - PROTHROMBIN TIME 12.7 secs (9.9-12.6)
[2018-04-18] MEDS: SODIUM CHLORIDE FLUSH 0.9% 10 ML SYRINGE IVP SCH ×2 (08:43→15:55)
[2018-04-18] MEDS ORDERED: ceFAZolin 2 GM/50 ML 2 GM/50 ML BAG IV SCH (09:00)
--- NOTE | 2018-04-18 10:12 | PROVIDER PROGRESS NOTE ---
Subjective - Prog Note Date Prog Note Date: 04/18/18 - Subjective Pt reports feeling: No change Subjective: pt state she is ready for procedure. Her INR is 1.1 today. No other complaints. Current Medications - Current Medications Current Medications: Active Medications Acetaminophen (Tylenol) 650 mg PO Q4HR PRN PRN Reason: Pain or Fever > 38C (100.4F) Diltiazem HCl (Cardizem Cd) 180 mg PO BID [facility] Last Admin: 04/17/18 20:47 Dose: 180 mg Docusate Sodium (Colace 250mg Capsule) 250 - 500 mg PO DAILY [facility] Last Admin: 04/17/18 09:51 Dose: 250 mg Enoxaparin Sodium (Lovenox) 40 mg SUBQ DAILY [facility] Last Admin: 04/17/18 09:51 Dose: 40 mg Famotidine (Pepcid) 20 mg PO DAILY [facility] Last Admin: 04/17/18 09:51 Dose: 20 mg Fluoxetine HCl (Prozac) 40 mg PO DAILY [facility] Last Admin: 04/17/18 09:52 Dose: 40 mg Cefazolin Sodium/Dextrose (Ancef 2 Gm/50 Ml) 2 gm in 50 mls @ 100 mls/hr IV ONCE [facility] Stop: 04/18/18 11:00 Sodium Chloride (Normal Saline 0.9%) 1,000 mls @ 83.333 mls/hr IV .Q12H [facility] Last Admin: 04/17/18 20:47 Dose: 83.333 mls/hr Losartan Potassium (Cozaar) 50 mg PO BID [facility] Last Admin: 04/17/18 20:47 Dose: 50 mg Metoprolol Succinate (Toprol Xl) 50 mg PO BID [facility] Last Admin: 04/17/18 20:47 Dose: 50 mg Morphine Sulfate (Morphine) 2 mg IVP Q2H PRN PRN Reason: Pain 8 to 10 Last Admin: 04/17/18 06:13 Dose: 2 mg Nitrofurantoin (Macrobid) 100 mg PO BID [facility] Last Admin: 04/17/18 20:49 Dose: 100 mg Ondansetron HCl (Zofran Inj) 4 mg IVP Q6HR PRN PRN Reason: Nausea / Vomiting Oxycodone HCl (Roxicodone) 5 mg PO Q4HR PRN PRN Reason: Pain 5 to 7 Last Admin: 04/17/18 20:58 Dose: 5 mg Polyethylene Glycol (Miralax) 17 gm PO DAILY [facility] Last Admin: 04/17/18 09:52 Dose: 17 gm Senna (Senokot) 8.6 - 17.2 mg PO DAILY [facility] Last Admin: 04/17/18 10:05 Dose: 8.6 mg Sodium Chloride (Normal Saline Flush 0.9%) 10 ml IVP PRN PRN PRN Reason: NEEDED PER PROVIDER ORDERS Sodium Chloride (Normal Saline Flush 0.9%) 10 ml IVP 0100,0900,1700 [facility] Last Admin: 04/18/18 08:43 Dose: Not Given Zolpidem Tartrate (Ambien) 5 mg PO QPM PRN PRN Reason: sleep Last Admin: 04/17/18 20:58 Dose: 5 mg Losartan [Cozaar] 50 mg PO BID 11/02/14 Metoprolol Succinate 50 mg PO BID 11/02/14 Warfarin [Coumadin] 5 mg PO SUTUWEFRSA 11/02/14 Zolpidem Tartrate [Ambien] 5 mg PO QPM PRN 11/02/14 diltiaZEM CD [Cardizem Cd] 180 mg PO BID 11/02/14 Chlorthalidone [Chlorthalidone] 25 mg PO DAILY 04/15/18 FLUoxetine [PROzac] 40 mg PO DAILY 04/15/18 Warfarin Sodium [Warfarin Sodium] 7.5 mg PO MOTH 04/15/18 Objective - Vital Signs/Intake & Output Reviewed Vital Signs: Yes Vital Signs: Vital Signs x48h Temp Pulse Resp BP Pulse Ox 04/18/18 08:15 37.3 C 76 18 138/60 H 97 Intake & Output: Intake & Output 04/15/18 04/16/18 04/17/18 04/18/18 23:59 23:59 23:59 23:59 Intake Total 750 3432.5 1920 Output Total 100 2300 1850 300 Balance 650 1132.5 70 -300 - Objective General Appearance: positive: No acute distress, Alert. negative: Lethargic Eyes Bilateral: positive: Normal inspection, PERRL, No lid inflammation, Conjunctivae nml ENT: positive: ENT inspection nml, Pharynx nml. negative: Purulent nasal drainage, Pharyngeal erythema Neck: positive: Nml inspection, Thyroid nml, No JVD, Trachea midline. negative : Thyromegaly, Lymphadenopathy (R), Lymphadenopathy (L), Stiff neck, Swelling/ bruising, Tracheal deviation Respiratory: positive: Chest non-tender, No respiratory distress, Breath sounds nml. negative: Wheezes, Rales, Rhonchi Cardiovascular: positive: Regular rate & rhythm, No murmur, No gallop. negative : Irregularly irregular, Extrasystoles, Tachycardia, Bradycardia, JVD present, Systolic murmur, Diastolic murmur Peripheral Pulses: 2+ Radial (R), 2+ Radial (L), 2+ Dorsalis pedis (R), 2+ Dorsalis pedis (L) Abdomen: positive: Non-tender, No organomegaly, Nml bowel sounds, No distention. negative: Tenderness, Guarding, Rebound Back: positive: Nml inspection. negative: CVA tenderness (R), CVA tenderness (L ) Skin: positive: Color nml, No rash, Warm, Dry. negative: Cyanosis, Diaphoresis , Pallor Extremities: positive: Non-tender. negative: Calf tenderness, Joint swelling, Jose's sign/cords Neurologic/Psychiatric: positive: Oriented x3, Sensation nml, Mood/affect nml. negative: Weakness, Sensory loss, Facial droop, Slurred/abnml speech, Depressed mood/affect - Lab Results Fish Bones: 04/18/18 05:00 04/18/18 05:00 Other Labs: Lab Results x24hrs 04/18/18 04/18/18 04/18/18 Range/Units 05:00 05:00 05:00 WBC 5.5 (4.8-10.8) x10^3/uL RBC 3.66 L (4.20-5.40) 10^6/uL Hgb 10.9 L (12.0-16.0) g/dL Hct 31.5 L (37.0-47.0) % MCV 86.1 (81.0-99.0) fL MCH 29.9 (27.0-31.0) pg MCHC 34.7 (32.0-36.0) g/dL RDW 14.8 (12.0-15.0) % Plt Count 207 (130-450) 10^3/uL MPV 7.3 L (7.9-10.8) fL Neut # (Auto) 3.9 (1.5-6.6) 10^3/uL Lymph # (Auto) 0.7 L (1.5-3.5) 10^3/uL [place] # (Auto) 0.7 (0.0-1.0) 10^3/uL Eos # (Auto) 0.2 (0.0-0.7) 10^3/uL Baso # (Auto) 0.0 (0.0-0.1) 10^3/uL Absolute Nucleated RBC 0.00 x10^3/uL Nucleated RBC % 0.0 /100WBC PT 12.7 H (9.9-12.6) secs INR 1.1 (0.8-1.2) Sodium 124 L (135-145) mmol/L Potassium 3.7 (3.5-5.0) mmol/L Chloride 91 L (101-111) mmol/L Carbon Dioxide 26 (21-32) mmol/L Anion Gap 7.0 (6-13) BUN 10 (6-20) mg/dL Creatinine 0.4 (0.4-1.0) mg/dL Estimated GFR (MDRD) 156 (>89) Glucose 112 H (70-100) mg/dL Calcium 8.3 L (8.5-10.3) mg/dL Total Bilirubin 0.9 (0.2-1.0) mg/dL AST 12 (10-42) IU/L ALT 11 (10-60) IU/L Alkaline Phosphatase 47 (42-121) IU/L Total Protein 5.8 L (6.7-8.2) g/dL Albumin 3.3 (3.2-5.5) g/dL Globulin 2.5 (2.1-4.2) g/dL Albumin/Globulin Ratio 1.3 (1.0-2.2) 04/17/18 Range/Units 21:05 WBC (4.8-10.8) x10^3/uL RBC (4.20-5.40) 10^6/uL Hgb (12.0-16.0) g/dL Hct (37.0-47.0) % MCV (81.0-99.0) fL MCH (27.0-31.0) pg MCHC (32.0-36.0) g/dL RDW (12.0-15.0) % Plt Count (130-450) 10^3/uL MPV (7.9-10.8) fL Neut # (Auto) (1.5-6.6) 10^3/uL Lymph # (Auto) (1.5-3.5) 10^3/uL [place] # (Auto) (0.0-1.0) 10^3/uL Eos # (Auto) (0.0-0.7) 10^3/uL Baso # (Auto) (0.0-0.1) 10^3/uL Absolute Nucleated RBC x10^3/uL Nucleated RBC % /100WBC PT 12.4 (9.9-12.6) secs INR 1.1 (0.8-1.2) Sodium (135-145) mmol/L Potassium (3.5-5.0) mmol/L Chloride (101-111) mmol/L Carbon Dioxide (21-32) mmol/L Anion Gap (6-13) BUN (6-20) mg/dL Creatinine (0.4-1.0) mg/dL Estimated GFR (MDRD) (>89) Glucose (70-100) mg/dL Calcium (8.5-10.3) mg/dL Total Bilirubin (0.2-1.0) mg/dL AST (10-42) IU/L ALT (10-60) IU/L Alkaline Phosphatase (42-121) IU/L Total Protein (6.7-8.2) g/dL Albumin (3.2-5.5) g/dL Globulin (2.1-4.2) g/dL Albumin/Globulin Ratio (1.0-2.2) Assessment/Plan - Problem List (1) Closed right femoral fracture Impression: Conclusion/Plan: 04/18, pt's INR today is 1.1, will have procedure, knee repair today, follow up 04/17, INR is down to 1.2, ready for procedure, procedure per orthopedics. 04/16 surgeon plan to do surgery on Wednesday, he is waiting for some equipment. Pt' s INR is 1.9 yesterday, pt was given 10mg vitamin K but today INR is 2.0, will continue check PT/INR, may give IV of vitamin K if INR is still high consult with orthopedics, will followup surgeon pain control order vitmin K to reverse Coumadin effect (2) Atrial fibrillation Conclusion/Plan: 04/16 HR is stable, hold Coumadin, continue to check PT/INR, may give IV of Vitamin K if needed HR is stable, continue metoprolol, Cardizem hold Coumadin daily PT/INR add vitamin K, today INR is 1.9 tele, vital monitor (3) Hyponatremia Conclusion/Plan: 04/18, Na 124, slight better, chronic hyponatremia continue NS IVF, check daily 04/17 chronic, continue IVF of NS, lab monitor 04/16 Na 121 today, chronic continue IV of NS pt has chronic hyponatremia hold HCTZ start IVF of NS daily lab monitor (4) Hypokalemia Conclusion/Plan: 04/17 resolved K 3.4, will replacement daily Potassium check (5) HTN (hypertension) Conclusion/Plan: stable, continue home BP meds (6) Anxiety Conclusion/Plan: stable, resume Prosac (7) UTI initially elevated WBC, and UTI in UA and culture is positive for Ecoli, sensitivity to Macrobid WBC is normal now continue Macrobid for 7-10 days totally Qualifiers: Encounter type: initial encounter Femur location: distal Fracture morphology: unspecified fracture morphology Qualified Code(s): S72.401A - Unspecified fracture of lower end of right femur, initial encounter for closed fracture
[2018-04-18] MEDS ORDERED: LACTATED RINGERS 1,000 ML IV ONE ×2 (11:21→14:34)
[2018-04-18] MEDS ORDERED: ceFAZolin 1 GM VIAL IV ONE (12:00)
[2018-04-18] MEDS ORDERED: ONDANSETRON 4 MG/2 ML VIAL IVP ONE (12:00)
[2018-04-18] MEDS ORDERED: PHENYLEPHRINE 50 MG/5 ML VIAL IV ONE (12:00)
[2018-04-18] MEDS ORDERED: fentaNYL 100 MCG/2 ML VIAL IVP ONE (12:00)
[2018-04-18] MEDS ORDERED: ACETAMINOPHEN 1,000 MG/100 ML 100 ML IV ONE (12:00)
[2018-04-18] MEDS ORDERED: MIDAZOLAM 2 MG/2 ML VIAL IVP ONE (12:00)
[2018-04-18] MEDS ORDERED: PROPOFOL 200 MG/20 ML VIAL IVP ONE (12:00)
[2018-04-18] MEDS ORDERED: DEXAMETHASONE 4 MG/ML VIAL IVP ONE (12:00)
[2018-04-18] MEDS ORDERED: LIDOCAINE-MPF 2% 5 ML VIAL IM ONE (12:00)
[2018-04-18] MEDS ORDERED: ePHEDrine 50 MG/ML VIAL IVP ONE (12:00)
[2018-04-18] MEDS ORDERED: SODIUM CHLORIDE 0.9% 10 ML VIAL IV ONE (12:00)
[2018-04-18] MEDS: ENOXAPARIN 40 MG/0.4 ML SYRINGE SUBQ SCH (12:55)
[2018-04-18] MEDS ORDERED: BUPIVACAINE 0.5%-EPI 1:200000 PF 30 ML VIAL ONE (14:32)
[2018-04-18] MEDS ORDERED: BUPIVACAINE 0.5%-EPI 1:200000 PF 30 ML VIAL SUBQ ONE (14:45)
--- NOTE | 2018-04-18 14:53 | OPERATIVE REPORT ---
Operative Report - General Admit Date: 04/15/18 Procedure Date: 04/18/18 Planned Procedure: Open reduction and locked lateral femoral plating of right distal femur fx Pre-Op Diagnosis: Displaced closed periprosthetic right distal femur fracture Procedure Performed: Open reduction and locked distal femoral plating of right distal femur fracture - Procedure Note Primary Surgeon: Juan Collado MD Anesthesia Provider: Richie Edmonds CRNA Anesthesia Technique: General ET tube IV Fluids (mL): 1,000 Estimated Blood Loss (mL): 150 Complications: None
[2018-04-18] MEDS ORDERED: ACETAMINOPHEN 325 MG TABLET PO PRN (14:54)
[2018-04-18] MEDS ORDERED: ONDANSETRON 4 MG/2 ML VIAL IVP PRN (14:54)
[2018-04-18] MEDS ORDERED: SODIUM CHLORIDE FLUSH 0.9% 10 ML SYRINGE IVP PRN (14:54)
[2018-04-18] MEDS ORDERED: PROCHLORPERAZINE 10 MG/2 ML VIAL IVP PRN (14:54)
[2018-04-18] MEDS ORDERED: ACETAMINOPHEN 1,000 MG/100 ML 100 ML IV PRN (14:54)
[2018-04-18] MEDS ORDERED: MORPHINE 2 MG/ML SYRINGE IVP PRN (14:57)
--- NOTE | 2018-04-18 15:21 | XRAY Report ---
Procedure Date: 04/18/2018 Accession Number: [id number] / [id number] Procedure: [place] - OR C-Arm Procedure CPT Code: FULL RESULT: EXAM: Femur 2V RT, OR C-Arm Procedure DATE: 04/18/2018 2:34 PM CLINICAL HISTORY: ORIF RIGHT DISTAL FEMUR COMPARISON: Femur radiograph 04/15/2018. TECHNIQUE: Intraoperatively captured spot images. Fluoroscopy time 1 minute 40 seconds. 5 images. FINDINGS: Lateral plate and screw hardware is partially imaged in multiple projections spanning the known distal femoral fracture. The total knee arthroplasty is also partially imaged as well as the distal stem of the ipsilateral total hip arthroplasty. IMPRESSION: Intraoperative fluoroscopy spot images as described. RADIA
--- NOTE | 2018-04-18 15:21 | XRAY Report ---
Procedure Date: 04/18/2018 Accession Number: [id number] / [id number] Procedure: XR - Femur 2V RT CPT Code: FULL RESULT: EXAM: Femur 2V RT, OR C-Arm Procedure DATE: 04/18/2018 2:34 PM CLINICAL HISTORY: ORIF RIGHT DISTAL FEMUR COMPARISON: Femur radiograph 04/15/2018. TECHNIQUE: Intraoperatively captured spot images. Fluoroscopy time 1 minute 40 seconds. 5 images. FINDINGS: Lateral plate and screw hardware is partially imaged in multiple projections spanning the known distal femoral fracture. The total knee arthroplasty is also partially imaged as well as the distal stem of the ipsilateral total hip arthroplasty. IMPRESSION: Intraoperative fluoroscopy spot images as described. RADIA
[2018-04-18] MEDS: METOPROLOL SUCCINATE 50 MG TABLET PO SCH ×2 (15:27→20:58)
[2018-04-18] MEDS: diltiaZEM CD 180 MG CAPSULE PO SCH ×2 (15:27→20:58)
[2018-04-18] MEDS: LOSARTAN 50 MG TABLET PO SCH ×2 (15:27→20:58)
[2018-04-18] MEDS: FAMOTIDINE 20 MG TABLET PO SCH (15:27)
[2018-04-18] MEDS: FLUoxetine 10 MG CAPSULE PO SCH (15:27)
[2018-04-18] MEDS: NITROFURANTOIN MACRO 100 MG CAPSULE PO SCH ×2 (15:28→20:58)
[2018-04-18] MEDS: SODIUM CHLORIDE 0.9% 1,000 ML IV SCH (15:53)
[2018-04-18] MEDS: DOCUSATE SODIUM 100 MG CAPSULE PO PRN (15:53)
[2018-04-18] MEDS: SENNA 8.6 MG TABLET PO SCH (15:54)
[2018-04-18] MEDS: POLYETHYLENE GLYCOL 3350 17 GM PACKET PO SCH (15:54)
[2018-04-18] MEDS: ceFAZolin 2 GM/50 ML 2 GM/50 ML BAG IV SCH (15:55)
[2018-04-18] MEDS: ZOLPIDEM 5 MG TABLET PO PRN (22:14)
[2018-04-18] MEDS: oxyCODONE 5 MG TABLET PO PRN (22:14)
[2018-04-19] MEDS: SODIUM CHLORIDE FLUSH 0.9% 10 ML SYRINGE IVP SCH ×3 (00:37→16:31)
[2018-04-19] MEDS: ceFAZolin 2 GM/50 ML 2 GM/50 ML BAG IV SCH (00:37)
--- NOTE | 2018-04-19 02:50 | OPERATIVE REPORT ---
DATE OF SERVICE: 04/18/2018 Physician: Albin Collado MD PREOPERATIVE DIAGNOSIS: Displaced, closed periprosthetic right distal femur fracture. POSTOPERATIVE DIAGNOSIS: Displaced, closed periprosthetic right distal femur fracture. NAME OF PROCEDURE: Open reduction and internal fixation of fracture utilizing a locked distal femora l plate. SURGEON: Albin Collado MD ANESTHESIA: General. DESCRIPTION OF PROCEDURE: The patient was taken to the operating room on the morning of 04/18/2018, where she was placed under a general anesthetic supine without any problems. She was then positioned onto the fracture table. With several blankets to build up her right fractured extremity, we placed mild traction and minimal manipulation of the fracture. Fluoroscopic views of the distal femur show ed the fracture to be essentially out to length with improved position and alignment. This was felt acceptable and we proceeded with the procedure. No tourniquet was applied. We then prepped and drap ed the leg free in the usual fashion for our procedure. An oblique distal femoral incision was then made to access the lateral femoral portion of the distal femur. We could palpate the fracture. It d id not feel abnormal. With gentle manipulation, we were able to reduce the fracture to a better posi tion. We held the patient's fracture in a more reduced position using the ball and spike pelvic redu ction clamp across the fracture. There was minimal shortening appreciated, but much improved positio n. We then fired one 2 mm smooth K-wire in oblique fashion across the fracture to provide some provi sional fixation. We supplemented this fixation using a 3.5 mm smooth Alexandra wire as well. Once w e were able to maintain the position, we then removed our pelvic clamp. We then next applied a 10-ho le lateral distal femoral locking plate onto the lateral aspect of the distal femur and knee. This w as done with the outrigger in place to assist with the submuscular insertion of our plate. Fluorosco pic view showed the position of our plate to be satisfactory in both AP and lateral projections, both proximally and distally. Satisfied with this, we then proceeded to insert a provisional fixation pi n both distally and proximally using the standard technique. Fluoroscopic views in AP and lateral pr ojection showed again the position of our plate and reduction of the fracture to be satisfactory. I then proceeded to insert a tubular sleeve into a distal posterior hole of our plate, followed by a bl ue pin guide, followed by the threaded-tip guidewire through the pin guide. This went transversely a cross the distal femoral condylar portion of the femur. Checking with x-rays, this pin was parallel to the joint surface and appeared to be intraosseous. Direct measuring guide was utilized. We then proceeded to use the appropriate length cannulated cancellous locking screw. This was placed across our guide pin and the guide pin removed. Again, we checked on the fracture reduction and felt that i t was in satisfactory reduction. With the provisional pins in place, we decided to reduce the plate to the fracture and the femoral shaft in an improved position. We released the 2 guide pins, which w ere used to hold provisional fixation to the fracture. We then proceeded to insert a nonlocking polina ical screw in the distal portion of the plate to anchor the distal femoral fragment and also to reduc e this fragment to the plate itself. This was done in the usual technique. It did reveal an improve d position of our fracture to the plate. Next, we applied some anterior pressure to the distal femor al shaft and this again improved the mild amount of angulation, which we appreciated at the fracture in the lateral view. With this improved position in place with pressure anteriorly in the distal thi gh, we then proceeded to insert a cortical screw through the mid portion of our plate. We also appli ed the ball spike pelvic reduction clamp, this time reducing the femoral shaft to the proximal portio n of our plate. This reduced the fracture nicely, putting the femoral shaft adherent to the plate. A 4.5 mm cortical screw was inserted in the usual fashion, anchoring the plate to the reduced femoral shaft. Once this provisional fixation was placed, we then checked with fluoroscopic views in AP and lateral projection. This again now showed that the fracture was nicely reduced, was essentially out to length, and that we had provisional fixation both proximally and distally of our fracture. We th en proceeded to fill a combination of locked 4.5 screws, both in the distal and proximal fragment to complete the fixation of our fracture. We removed the pelvic reduction clamp and removed the outrigg er from our inserted plate. We then finally filled the last 2 holes, one with the screw that had bee n used to hold the outrigger onto the plate and the other was to replace the proximal provisional scr ew. Once all the hardware was in place, we obtained permanent films in AP and lateral projections, s howing the entire length of the locked plate, as well as the fracture. It showed good fracture reduc tion. The fracture was out to length and we were satisfied with the placement of our hardware. We t hen irrigated the wounds out thoroughly with saline. We then closed the wound in layers using buried simple stitches of 2-0 Vicryl in a [id number] fashion to close the fascial portion of our dista l incision. Finally, skin paola were used to approximate all the skin wounds. We then washed the wounds; applied Xeroform gauze, 4 x 4's, Tegaderm dressings. The patient was placed back into a knee immobilizer after soft dressings were applied to her wounds. The patient was transferred to the rec overy room in satisfactory condition. ESTIMATED BLOOD LOSS: 150 mL REPLACEMENT: 1000 mL crystalloid. INTRAOPERATIVE COMPLICATIONS: None. PLAN: The patient will be nonweightbearing for about 4-6 weeks total. We will start working on acti ve range of motion of the knee in approximately a week to 10 days, if she is comfortable enough. TD: 04/18/2018 15:25
[2018-04-19] MEDS: SODIUM CHLORIDE 0.9% 1,000 ML IV SCH ×2 (03:06→13:19)
[2018-04-19 05:15] LABS: BASOPHILS % (AUTO) 0.1 %; EOSINOPHILS % (AUTO) 0.1 %; HGB - HEMOGLOBIN 10.3 g/dL (12.0-16.0); LYMPHOCYTES # (AUTO) 0.4 10^3/uL (1.5-3.5); LYMPHOCYTES % (AUTO) 4.4 %; MEAN CORPUSCULAR HEMOGLOBIN 29.6 pg (27.0-31.0); MEAN CORPUSCULAR HGB CONC 34.4 g/dL (32.0-36.0); MEAN PLATELET VOLUME 6.9 fL (7.9-10.8); MONOCYTES # (AUTO) 0.6 10^3/uL (0.0-1.0); MONOCYTES % (AUTO) 6.9 %; NEUTROPHILS # (AUTO) 7.4 10^3/uL (1.5-6.6); NEUTROPHILS % (AUTO) 88.5 %; PLT - PLATELET COUNT 225 10^3/uL (130-450); RED BLOOD COUNT 3.48 10^6/uL (4.20-5.40); RED CELL DISTRIBUTION WIDTH 14.3 % (12.0-15.0); WHITE BLOOD COUNT 8.4 x10^3/uL (4.8-10.8)
[2018-04-19 05:19] LABS: INR 1.1 (0.8-1.2); PT - PROTHROMBIN TIME 12.1 secs (9.9-12.6)
[2018-04-19 05:26] LABS: ALBUMIN 3.3 g/dL (3.2-5.5); ALBUMIN/GLOBULIN RATIO 1.2 (1.0-2.2); BILIRUBIN,TOTAL 0.6 mg/dL (0.2-1.0); CALCIUM 8.1 mg/dL (8.5-10.3); CREATININE 0.4 mg/dL (0.4-1.0)
--- NOTE | 2018-04-19 08:32 | PROVIDER PROGRESS NOTE ---
Subjective - Prog Note Date Prog Note Date: 04/19/18 Prog Note Time: 08:30 - Subjective Pt reports feeling: Improved Subjective: Kathie explains that since her RLE was numb just after surgery, she was not able to ambulate to get to the regular toilet and is hopeful that today, she will succeed in moving her bowels. She denies any new symptoms such as shortness of breath, chest pain, nausea, vomiting or a new cough. Current Medications - Current Medications Current Medications: Active Medications Acetaminophen (Tylenol) 650 - 975 mg PO Q4HR PRN PRN Reason: PAIN Diltiazem HCl (Cardizem Cd) 180 mg PO BID [facility] Last Admin: 04/18/18 20:58 Dose: 180 mg Docusate Sodium (Colace 100mg Capsule) 100 mg PO BID PRN PRN Reason: Constipation Last Admin: 04/18/18 15:53 Dose: 100 mg Enoxaparin Sodium (Lovenox) 40 mg SUBQ DAILY [facility] Stop: 04/20/18 23:59 Last Admin: 04/18/18 12:55 Dose: Not Given Famotidine (Pepcid) 20 mg PO DAILY [facility] Last Admin: 04/18/18 15:27 Dose: Not Given Fluoxetine HCl (Prozac) 40 mg PO DAILY [facility] Last Admin: 04/18/18 15:27 Dose: Not Given Acetaminophen (Ofirmev) 100 mls @ 400 mls/hr IV Q6HR PRN PRN Reason: PAIN Sodium Chloride (Normal Saline 0.9%) 1,000 mls @ 100 mls/hr IV .Q10H [facility] Last Admin: 04/19/18 03:06 Dose: 100 mls/hr Losartan Potassium (Cozaar) 50 mg PO BID [facility] Last Admin: 04/18/18 20:58 Dose: 50 mg Metoprolol Succinate (Toprol Xl) 50 mg PO BID [facility] Last Admin: 04/18/18 20:58 Dose: 50 mg Morphine Sulfate (Morphine) 2 mg IVP Q2HR PRN PRN Reason: PAIN Nitrofurantoin (Macrobid) 100 mg PO BID [facility] Last Admin: 04/18/18 20:58 Dose: 100 mg Ondansetron HCl (Zofran Inj) 4 mg IVP Q6HR PRN PRN Reason: Nausea / Vomiting Oxycodone HCl (Roxicodone) 5 mg PO Q4HR PRN PRN Reason: PAIN Last Admin: 04/18/18 22:14 Dose: 5 mg Polyethylene Glycol (Miralax) 17 gm PO DAILY [facility] Last Admin: 04/18/18 15:54 Dose: 17 gm Prochlorperazine Edisylate (Compazine Inj) 10 mg IVP Q6HR PRN PRN Reason: Nausea / Vomiting Senna (Senokot) 8.6 - 17.2 mg PO DAILY [facility] Last Admin: 04/18/18 15:54 Dose: 8.6 mg Sodium Chloride (Normal Saline Flush 0.9%) 10 ml IVP 0100,0900,1700 [facility] Last Admin: 04/19/18 00:37 Dose: Not Given Sodium Chloride (Normal Saline Flush 0.9%) 10 ml IVP PRN PRN PRN Reason: NEEDED PER PROVIDER ORDERS Warfarin Sodium (Coumadin) 5 mg PO QDWARFARIN [facility] Zolpidem Tartrate (Ambien) 5 mg PO QPM PRN PRN Reason: sleep Last Admin: 04/18/18 22:14 Dose: 5 mg Losartan [Cozaar] 50 mg PO BID 11/02/14 Metoprolol Succinate 50 mg PO BID 11/02/14 Warfarin [Coumadin] 5 mg PO SUTUWEFRSA 11/02/14 Zolpidem Tartrate [Ambien] 5 mg PO QPM PRN 11/02/14 diltiaZEM CD [Cardizem Cd] 180 mg PO BID 11/02/14 Chlorthalidone [Chlorthalidone] 25 mg PO DAILY 04/15/18 FLUoxetine [PROzac] 40 mg PO DAILY 04/15/18 Warfarin Sodium [Warfarin Sodium] 7.5 mg PO MOTH 04/15/18 Objective - Vital Signs/Intake & Output Reviewed Vital Signs: Yes Vital Signs: Vital Signs x48h Temp Pulse Resp BP Pulse Ox 04/19/18 06:34 36.6 C 77 18 147/72 H 100 04/19/18 00:46 36.2 C L 85 16 145/60 H 100 Intake & Output: Intake & Output 04/16/18 04/17/18 04/18/18 04/19/18 23:59 23:59 23:59 23:59 Intake Total 3432.5 1920 1350 1100 Output Total 2300 1850 650 675 Balance 1132.5 70 700 425 - Objective General Appearance: positive: No acute distress, Alert Eyes Bilateral: positive: Normal inspection, PERRL ENT: positive: ENT inspection nml, Pharynx nml, No signs of dehydration Neck: positive: Nml inspection, Thyroid nml, No JVD Respiratory: positive: Chest non-tender, No respiratory distress, Breath sounds nml Cardiovascular: positive: Regular rate & rhythm, No gallop, Systolic murmur Abdomen: positive: Non-tender, Nml bowel sounds, Other (rounded, soft) Back: positive: Nml inspection Skin: positive: No rash, Warm, Dry Extremities: positive: Pedal edema, Joint swelling (right hip swelling) Neurologic/Psychiatric: positive: Oriented x3, CN's nml (2-12), Motor nml, Sensation nml, Depressed mood/affect Reflexes: Bicep (R): 2+, Bicep (L): 2+ - Lab Results Fish Bones: 04/19/18 04:59 04/19/18 04:59 Other Labs: Lab Results x24hrs 04/19/18 04/19/18 04/19/18 Range/Units 04:59 04:59 04:59 WBC 8.4 (4.8-10.8) x10^3/uL RBC 3.48 L (4.20-5.40) 10^6/uL Hgb 10.3 L (12.0-16.0) g/dL Hct 29.9 L (37.0-47.0) % MCV 86.0 (81.0-99.0) fL MCH 29.6 (27.0-31.0) pg MCHC 34.4 (32.0-36.0) g/dL RDW 14.3 (12.0-15.0) % Plt Count 225 (130-450) 10^3/uL MPV 6.9 L (7.9-10.8) fL Neut # (Auto) 7.4 H (1.5-6.6) 10^3/uL Lymph # (Auto) 0.4 L (1.5-3.5) 10^3/uL [place] # (Auto) 0.6 (0.0-1.0) 10^3/uL Eos # (Auto) 0.0 (0.0-0.7) 10^3/uL Baso # (Auto) 0.0 (0.0-0.1) 10^3/uL Absolute Nucleated RBC 0.01 x10^3/uL Nucleated RBC % 0.1 /100WBC PT 12.1 (9.9-12.6) secs INR 1.1 (0.8-1.2) Sodium 126 L (135-145) mmol/L Potassium 4.0 (3.5-5.0) mmol/L Chloride 95 L (101-111) mmol/L Carbon Dioxide 24 (21-32) mmol/L Anion Gap 7.0 (6-13) BUN 13 (6-20) mg/dL Creatinine 0.4 (0.4-1.0) mg/dL Estimated GFR (MDRD) 156 (>89) Glucose 152 H (70-100) mg/dL Calcium 8.1 L (8.5-10.3) mg/dL Total Bilirubin 0.6 (0.2-1.0) mg/dL AST 17 (10-42) IU/L ALT 14 (10-60) IU/L Alkaline Phosphatase 56 (42-121) IU/L Total Protein 6.0 L (6.7-8.2) g/dL Albumin 3.3 (3.2-5.5) g/dL Globulin 2.7 (2.1-4.2) g/dL Albumin/Globulin Ratio 1.2 (1.0-2.2) Blood Type Antibody Screen 04/17/18 Range/Units 21:05 WBC (4.8-10.8) x10^3/uL RBC (4.20-5.40) 10^6/uL Hgb (12.0-16.0) g/dL Hct (37.0-47.0) % MCV (81.0-99.0) fL MCH (27.0-31.0) pg MCHC (32.0-36.0) g/dL RDW (12.0-15.0) % Plt Count (130-450) 10^3/uL MPV (7.9-10.8) fL Neut # (Auto) (1.5-6.6) 10^3/uL Lymph # (Auto) (1.5-3.5) 10^3/uL [place] # (Auto) (0.0-1.0) 10^3/uL Eos # (Auto) (0.0-0.7) 10^3/uL Baso # (Auto) (0.0-0.1) 10^3/uL Absolute Nucleated RBC x10^3/uL Nucleated RBC % /100WBC PT (9.9-12.6) secs INR (0.8-1.2) Sodium (135-145) mmol/L Potassium (3.5-5.0) mmol/L Chloride (101-111) mmol/L Carbon Dioxide (21-32) mmol/L Anion Gap (6-13) BUN (6-20) mg/dL Creatinine (0.4-1.0) mg/dL Estimated GFR (MDRD) (>89) Glucose (70-100) mg/dL Calcium (8.5-10.3) mg/dL Total Bilirubin (0.2-1.0) mg/dL AST (10-42) IU/L ALT (10-60) IU/L Alkaline Phosphatase (42-121) IU/L Total Protein (6.7-8.2) g/dL Albumin (3.2-5.5) g/dL Globulin (2.1-4.2) g/dL Albumin/Globulin Ratio (1.0-2.2) Blood Type O NEGATIVE Antibody Screen NEGATIVE ABX Reporting Has patient been on IV antibiotics over the past 48 hours?: No Assessment/Plan - Problem List (1) Closed right femoral fracture Impression: Per ED reports, "77-year old patient with a right total hip replacement and a right partial knee replacement who presents with right knee pain after falling this morning. It was a low impact fall when she lost her balance and stumbled, twisting her leg underneath her as she went to the floor. She felt a "snap." She has not been able to stand since incident occurred because of pain in her knee". Once in the ED imaging showed a right distal femur fracture. Unicompartmental knee intact. She is now POD #1 from an Open reduction and locked lateral femoral plating of right distal femur fx Pre-Op Diagnosis: Displaced closed periprosthetic right distal femur fracture Procedure Performed: Open reduction and locked distal femoral plating of right distal femur fracture. This was performed by Dr. Collado without complications. She remains with a right hip wound that is CDI. She notes her pain to be in good control. She is undergoing physical therapy and frequent nursing cares. She is agreeable to SNF after this hospital stay. Plan: Continue post op care, re-start Coumadin today. Monitor for signs of decline. Qualifiers: Encounter type: initial encounter Femur location: distal Fracture morphology: unspecified fracture morphology Qualified Code(s): S72.401A - Unspecified fracture of lower end of right femur, initial encounter for closed fracture (2) HTN (hypertension) Impression: The patient has a known history of this and is prescribed Losartan at home, which is continued here. Today, she is running high at 152/73 and this is likely due to mild fluid overload. Plan: Continue to monitor vital signs, continue meds and stop continuous fluids. Qualifiers: Hypertension type: essential hypertension Qualified Code(s): I10 - Essential (primary) hypertension (3) Anticoagulant long-term use Impression: The patient was previously on warfarin, and her last known INR was 1.9. Today, she re-starting as per Dr. Collado recommendations. We will watch carefully for signs of bleeding and continue low dose Lovenox. Plan: Continue post-op care and add daily INR lab, continue warfarin. (4) Atrial fibrillation and flutter Impression: The patient has a history of TIAs, with left sided weakness. She is chronically anticoagulated with warfarin, which was restarted today. She has been in atrial fibrillation. She continues on metoprolol and diltiazem. Plan: Continue rate control meds, and anticoagulant. (5) E. coli UTI (urinary tract infection) Impression: A urine sample from 04/15/18 shows e. coli, with several sensitivities. She has been prescribed Macrobid, which continues. Plan: Continue to monitor for urinary symptoms and continue medications. (6) Hyponatremia Impression: The patient's sodium today was improved at 125. She states that she has a history of this and on her last hospital stay was placed in the ICU due to this condition. Surgery was aware, and she is considered stable today. Plan: continue to monitor daily labs.
[2018-04-19] MEDS: FAMOTIDINE 20 MG TABLET PO SCH (09:17)
[2018-04-19] MEDS: FLUoxetine 10 MG CAPSULE PO SCH (09:17)
[2018-04-19] MEDS: SENNA 8.6 MG TABLET PO SCH (09:17)
[2018-04-19] MEDS: diltiaZEM CD 180 MG CAPSULE PO SCH ×2 (09:17→21:28)
[2018-04-19] MEDS: POLYETHYLENE GLYCOL 3350 17 GM PACKET PO SCH (09:18)
[2018-04-19] MEDS: METOPROLOL SUCCINATE 50 MG TABLET PO SCH ×2 (09:18→21:28)
[2018-04-19] MEDS: NITROFURANTOIN MACRO 100 MG CAPSULE PO SCH ×2 (09:18→21:28)
[2018-04-19] MEDS: ENOXAPARIN 40 MG/0.4 ML SYRINGE SUBQ SCH (09:18)
[2018-04-19] MEDS: LOSARTAN 50 MG TABLET PO SCH ×2 (09:18→21:28)
[2018-04-19] MEDS: DOCUSATE SODIUM 100 MG CAPSULE PO PRN (09:25)
--- NOTE | 2018-04-19 10:28 | PROVIDER PROGRESS NOTE ---
Subjective - Prog Note Date Prog Note Date: 04/19/18 Prog Note Time: 10:26 - Subjective Pt reports feeling: Improved Objective - Vital Signs/Intake & Output Vital Signs: Vital Signs x48h Temp Pulse Resp BP Pulse Ox 04/19/18 09:38 36.5 C 81 18 149/68 H 100 04/19/18 06:34 36.6 C 77 18 147/72 H 100 Intake & Output: Intake & Output 04/16/18 04/17/18 04/18/18 04/19/18 23:59 23:59 23:59 23:59 Intake Total 3432.5 1920 1350 1300 Output Total 2300 1850 650 675 Balance 1132.5 70 700 625 - Lab Results Fish Bones: 04/19/18 04:59 04/19/18 04:59 Other Labs: Lab Results x24hrs 04/19/18 04/19/18 04/19/18 Range/Units 04:59 04:59 04:59 WBC 8.4 (4.8-10.8) x10^3/uL RBC 3.48 L (4.20-5.40) 10^6/uL Hgb 10.3 L (12.0-16.0) g/dL Hct 29.9 L (37.0-47.0) % MCV 86.0 (81.0-99.0) fL MCH 29.6 (27.0-31.0) pg MCHC 34.4 (32.0-36.0) g/dL RDW 14.3 (12.0-15.0) % Plt Count 225 (130-450) 10^3/uL MPV 6.9 L (7.9-10.8) fL Neut # (Auto) 7.4 H (1.5-6.6) 10^3/uL Lymph # (Auto) 0.4 L (1.5-3.5) 10^3/uL [place] # (Auto) 0.6 (0.0-1.0) 10^3/uL Eos # (Auto) 0.0 (0.0-0.7) 10^3/uL Baso # (Auto) 0.0 (0.0-0.1) 10^3/uL Absolute Nucleated RBC 0.01 x10^3/uL Nucleated RBC % 0.1 /100WBC PT 12.1 (9.9-12.6) secs INR 1.1 (0.8-1.2) Sodium 126 L (135-145) mmol/L Potassium 4.0 (3.5-5.0) mmol/L Chloride 95 L (101-111) mmol/L Carbon Dioxide 24 (21-32) mmol/L Anion Gap 7.0 (6-13) BUN 13 (6-20) mg/dL Creatinine 0.4 (0.4-1.0) mg/dL Estimated GFR (MDRD) 156 (>89) Glucose 152 H (70-100) mg/dL Calcium 8.1 L (8.5-10.3) mg/dL Total Bilirubin 0.6 (0.2-1.0) mg/dL AST 17 (10-42) IU/L ALT 14 (10-60) IU/L Alkaline Phosphatase 56 (42-121) IU/L Total Protein 6.0 L (6.7-8.2) g/dL Albumin 3.3 (3.2-5.5) g/dL Globulin 2.7 (2.1-4.2) g/dL Albumin/Globulin Ratio 1.2 (1.0-2.2) Blood Type Antibody Screen 04/17/18 Range/Units 21:05 WBC (4.8-10.8) x10^3/uL RBC (4.20-5.40) 10^6/uL Hgb (12.0-16.0) g/dL Hct (37.0-47.0) % MCV (81.0-99.0) fL MCH (27.0-31.0) pg MCHC (32.0-36.0) g/dL RDW (12.0-15.0) % Plt Count (130-450) 10^3/uL MPV (7.9-10.8) fL Neut # (Auto) (1.5-6.6) 10^3/uL Lymph # (Auto) (1.5-3.5) 10^3/uL [place] # (Auto) (0.0-1.0) 10^3/uL Eos # (Auto) (0.0-0.7) 10^3/uL Baso # (Auto) (0.0-0.1) 10^3/uL Absolute Nucleated RBC x10^3/uL Nucleated RBC % /100WBC PT (9.9-12.6) secs INR (0.8-1.2) Sodium (135-145) mmol/L Potassium (3.5-5.0) mmol/L Chloride (101-111) mmol/L Carbon Dioxide (21-32) mmol/L Anion Gap (6-13) BUN (6-20) mg/dL Creatinine (0.4-1.0) mg/dL Estimated GFR (MDRD) (>89) Glucose (70-100) mg/dL Calcium (8.5-10.3) mg/dL Total Bilirubin (0.2-1.0) mg/dL AST (10-42) IU/L ALT (10-60) IU/L Alkaline Phosphatase (42-121) IU/L Total Protein (6.7-8.2) g/dL Albumin (3.2-5.5) g/dL Globulin (2.1-4.2) g/dL Albumin/Globulin Ratio (1.0-2.2) Blood Type O NEGATIVE Antibody Screen NEGATIVE - Other Results/Comments Other Results/Comments: EXAM: Right knee: wounds benign. Usual post op swelling. N/V ok distally. Up in PT. Assessment/Plan - Problem List (1) Closed right femoral fracture Impression: Satis post op PLAN: Mobilize as tolerated. PT as ordered. When patient is transferred to SNF, continue with PT. Followup in orthopedic clinic in 2 weeks for paola out and new XR. Qualifiers: Encounter type: initial encounter Femur location: distal Fracture morphology: unspecified fracture morphology Qualified Code(s): S72.401A - Unspecified fracture of lower end of right femur, initial encounter for closed fracture
[2018-04-19] MEDS: oxyCODONE 5 MG TABLET PO PRN ×2 (10:29→21:26)
[2018-04-19] MEDS: WARFARIN 5 MG TABLET PO SCH (13:16)
[2018-04-19] MEDS: MAGNESIUM OXIDE 400 MG TABLET PO SCH (16:29)
[2018-04-19] MEDS: ACETAMINOPHEN 325 MG TABLET PO SCH (18:19)
[2018-04-19] MEDS: ZOLPIDEM 5 MG TABLET PO PRN (21:26)
[2018-04-20] MEDS: ACETAMINOPHEN 325 MG TABLET PO SCH ×5 (00:19→23:52)
[2018-04-20] MEDS: SODIUM CHLORIDE FLUSH 0.9% 10 ML SYRINGE IVP SCH ×4 (00:21→23:53)
[2018-04-20 04:48] LABS: BASOPHILS # (AUTO) 0.1 10^3/uL (0.0-0.1); BASOPHILS % (AUTO) 2.2 %; EOSINOPHILS # (AUTO) 0.1 10^3/uL (0.0-0.7); EOSINOPHILS % (AUTO) 1.6 %; HGB - HEMOGLOBIN 9.3 g/dL (12.0-16.0); LYMPHOCYTES # (AUTO) 0.6 10^3/uL (1.5-3.5); LYMPHOCYTES % (AUTO) 8.5 %; MEAN CORPUSCULAR HEMOGLOBIN 29.8 pg (27.0-31.0); MEAN CORPUSCULAR VOLUME 87.5 fL (81.0-99.0); MEAN PLATELET VOLUME 7.3 fL (7.9-10.8); MONOCYTES # (AUTO) 0.6 10^3/uL (0.0-1.0); MONOCYTES % (AUTO) 9.2 %; NEUTROPHILS # (AUTO) 5.2 10^3/uL (1.5-6.6); NEUTROPHILS % (AUTO) 78.5 %; PLT - PLATELET COUNT 217 10^3/uL (130-450); RED BLOOD COUNT 3.13 10^6/uL (4.20-5.40); RED CELL DISTRIBUTION WIDTH 14.6 % (12.0-15.0); WHITE BLOOD COUNT 6.6 x10^3/uL (4.8-10.8)
[2018-04-20 05:07] LABS: INR 1.1 (0.8-1.2); PT - PROTHROMBIN TIME 12.2 secs (9.9-12.6)
[2018-04-20 05:09] LABS: ALBUMIN 3.3 g/dL (3.2-5.5); ALBUMIN/GLOBULIN RATIO 1.4 (1.0-2.2); BILIRUBIN,TOTAL 0.7 mg/dL (0.2-1.0); CALCIUM 8.4 mg/dL (8.5-10.3); CREATININE 0.3 mg/dL (0.4-1.0); TOTAL PROTEIN 5.7 g/dL (6.7-8.2)
[2018-04-20] MEDS: LOSARTAN 50 MG TABLET PO SCH ×2 (09:25→20:22)
[2018-04-20] MEDS: MAGNESIUM OXIDE 400 MG TABLET PO SCH ×2 (09:25→17:48)
[2018-04-20] MEDS: FAMOTIDINE 20 MG TABLET PO SCH (09:25)
[2018-04-20] MEDS: METOPROLOL SUCCINATE 50 MG TABLET PO SCH ×2 (09:25→20:22)
[2018-04-20] MEDS: FLUoxetine 10 MG CAPSULE PO SCH (09:25)
[2018-04-20] MEDS: diltiaZEM CD 180 MG CAPSULE PO SCH ×2 (09:25→20:22)
[2018-04-20] MEDS: NITROFURANTOIN MACRO 100 MG CAPSULE PO SCH ×2 (09:25→20:22)
[2018-04-20] MEDS: POLYETHYLENE GLYCOL 3350 17 GM PACKET PO SCH (09:26)
[2018-04-20] MEDS: ENOXAPARIN 40 MG/0.4 ML SYRINGE SUBQ SCH (09:26)
[2018-04-20] MEDS: SENNA 8.6 MG TABLET PO SCH (09:28)
[2018-04-20] MEDS: oxyCODONE 5 MG TABLET PO PRN ×2 (10:43→17:49)
--- NOTE | 2018-04-20 13:28 | PROVIDER PROGRESS NOTE ---
Subjective - Prog Note Date Prog Note Date: 04/20/18 Prog Note Time: 13:28 - Subjective Pt reports feeling: Improved Subjective: Kathie explains that she is frustrated with her potential SNF placement options. She denies any new symptoms such as shortness of breath, nausea, vomiting, a new cough, or chest pain or pressure. She states that her bowels are in good order and she is resting well. Current Medications - Current Medications Current Medications: Active Medications Acetaminophen (Tylenol) 650 - 975 mg PO Q4HR PRN PRN Reason: PAIN Acetaminophen (Tylenol) 650 mg PO Q6HR [facility] Last Admin: 04/21/18 05:57 Dose: 650 mg Diltiazem HCl (Cardizem Cd) 180 mg PO BID [facility] Last Admin: 04/20/18 20:22 Dose: 180 mg Docusate Sodium (Colace 100mg Capsule) 100 mg PO BID PRN PRN Reason: Constipation Last Admin: 04/19/18 09:25 Dose: 100 mg Famotidine (Pepcid) 20 mg PO DAILY [facility] Last Admin: 04/20/18 09:25 Dose: 20 mg Fluoxetine HCl (Prozac) 40 mg PO DAILY [facility] Last Admin: 04/20/18 09:25 Dose: 40 mg Losartan Potassium (Cozaar) 50 mg PO BID [facility] Last Admin: 04/20/18 20:22 Dose: 50 mg Magnesium Oxide (Mag Ox) 400 mg PO BIDWM [facility] Last Admin: 04/20/18 17:48 Dose: 400 mg Metoprolol Succinate (Toprol Xl) 50 mg PO BID [facility] Last Admin: 04/20/18 20:22 Dose: 50 mg Morphine Sulfate (Morphine) 2 mg IVP Q2HR PRN PRN Reason: PAIN Nitrofurantoin (Macrobid) 100 mg PO BID [facility] Last Admin: 04/20/18 20:22 Dose: 100 mg Ondansetron HCl (Zofran Inj) 4 mg IVP Q6HR PRN PRN Reason: Nausea / Vomiting Oxycodone HCl (Roxicodone) 5 mg PO Q4HR PRN PRN Reason: PAIN Last Admin: 04/20/18 17:49 Dose: 5 mg Polyethylene Glycol (Miralax) 17 gm PO DAILY [facility] Last Admin: 04/20/18 09:26 Dose: 17 gm Prochlorperazine Edisylate (Compazine Inj) 10 mg IVP Q6HR PRN PRN Reason: Nausea / Vomiting Senna (Senokot) 8.6 - 17.2 mg PO DAILY [facility] Last Admin: 04/20/18 09:28 Dose: Not Given Sodium Chloride (Normal Saline Flush 0.9%) 10 ml IVP 0100,0900,1700 [facility] Last Admin: 04/20/18 23:53 Dose: 10 ml Sodium Chloride (Normal Saline Flush 0.9%) 10 ml IVP PRN PRN PRN Reason: NEEDED PER PROVIDER ORDERS Warfarin Sodium (Coumadin) 5 mg PO QDWARFARIN [facility] Last Admin: 04/20/18 14:06 Dose: 5 mg Zolpidem Tartrate (Ambien) 5 mg PO QPM PRN PRN Reason: sleep Last Admin: 04/20/18 21:32 Dose: 5 mg Losartan [Cozaar] 50 mg PO BID 11/02/14 Metoprolol Succinate 50 mg PO BID 11/02/14 Warfarin [Coumadin] 5 mg PO SUTUWEFRSA 11/02/14 Zolpidem Tartrate [Ambien] 5 mg PO QPM PRN 11/02/14 diltiaZEM CD [Cardizem Cd] 180 mg PO BID 11/02/14 Chlorthalidone [Chlorthalidone] 25 mg PO DAILY 04/15/18 FLUoxetine [PROzac] 40 mg PO DAILY 04/15/18 Warfarin Sodium [Warfarin Sodium] 7.5 mg PO MOTH 04/15/18 Objective - Vital Signs/Intake & Output Reviewed Vital Signs: Yes Vital Signs: Vital Signs x48h Temp Pulse Pulse Pulse Resp BP BP 04/20/18 10:20 91 87 170/71 H 04/20/18 08:00 37.0 C 65 19 136/69 H BP Pulse Ox 04/20/18 10:20 152/73 H 04/20/18 08:00 98 Intake & Output: Intake & Output 04/17/18 04/18/18 04/19/18 04/20/18 23:59 23:59 23:59 23:59 Intake Total 1920 1350 3978.33 240 Output Total 3744 945 4541 1650 Balance 70 700 2603.33 -1410 - Objective General Appearance: positive: No acute distress, Alert Eyes Bilateral: positive: Normal inspection, PERRL ENT: positive: ENT inspection nml, Pharynx nml, No signs of dehydration Neck: positive: Nml inspection, Thyroid nml, No JVD Respiratory: positive: Chest non-tender, No respiratory distress, Breath sounds nml Cardiovascular: positive: Regular rate & rhythm, No gallop Peripheral Pulses: 1+ Radial (R), 1+ Radial (L), 1+ Dorsalis pedis (R), 1+ Dorsalis pedis (L) Abdomen: positive: Non-tender, Nml bowel sounds Back: positive: Nml inspection Skin: positive: No rash, Warm, Dry Extremities: positive: Pedal edema, Joint swelling Neurologic/Psychiatric: positive: Oriented x3, CN's nml (2-12), Motor nml, Weakness, Depressed mood/affect Reflexes: Bicep (R): 3+, Bicep (L): 3+ - Lab Results Fish Bones: 04/20/18 04:30 04/21/18 04:40 Other Labs: Lab Results x24hrs 04/20/18 04/20/18 04/20/18 Range/Units 04:30 04:30 04:30 WBC 6.6 (4.8-10.8) x10^3/uL RBC 3.13 L (4.20-5.40) 10^6/uL Hgb 9.3 L (12.0-16.0) g/dL Hct 27.3 L (37.0-47.0) % MCV 87.5 (81.0-99.0) fL MCH 29.8 (27.0-31.0) pg MCHC 34.0 (32.0-36.0) g/dL RDW 14.6 (12.0-15.0) % Plt Count 217 (130-450) 10^3/uL MPV 7.3 L (7.9-10.8) fL Neut # (Auto) 5.2 (1.5-6.6) 10^3/uL Lymph # (Auto) 0.6 L (1.5-3.5) 10^3/uL [place] # (Auto) 0.6 (0.0-1.0) 10^3/uL Eos # (Auto) 0.1 (0.0-0.7) 10^3/uL Baso # (Auto) 0.1 (0.0-0.1) 10^3/uL Absolute Nucleated RBC 0.00 x10^3/uL Nucleated RBC % 0.0 /100WBC PT 12.2 (9.9-12.6) secs INR 1.1 (0.8-1.2) Sodium 129 L (135-145) mmol/L Potassium 4.3 (3.5-5.0) mmol/L Chloride 99 L (101-111) mmol/L Carbon Dioxide 24 (21-32) mmol/L Anion Gap 6.0 (6-13) BUN 10 (6-20) mg/dL Creatinine 0.3 L (0.4-1.0) mg/dL Estimated GFR (MDRD) 217 (>89) Glucose 105 H (70-100) mg/dL Calcium 8.4 L (8.5-10.3) mg/dL Total Bilirubin 0.7 (0.2-1.0) mg/dL AST 16 (10-42) IU/L ALT 11 (10-60) IU/L Alkaline Phosphatase 52 (42-121) IU/L Total Protein 5.7 L (6.7-8.2) g/dL Albumin 3.3 (3.2-5.5) g/dL Globulin 2.4 (2.1-4.2) g/dL Albumin/Globulin Ratio 1.4 (1.0-2.2) ABX Reporting Has patient been on IV antibiotics over the past 48 hours?: No Assessment/Plan - Problem List (1) Closed right femoral fracture Impression: The patient suffered from a low impact fall when she lost her balance and stumbled, twisting her leg underneath her as she went to the floor. She felt a "snap." She has not been able to stand since incident occurred because of pain in her knee". ED imaging showed a right distal femur fracture. Unicompartmental knee intact. She is now POD #2 from an Open reduction and locked lateral femoral plating of right distal femur fracture. Pre-Op Diagnosis was Displaced closed periprosthetic right distal femur fracture. The procedure performed was an open reduction and locked distal femoral plating of right distal femur fracture. This was performed by Dr. Collado without complications. She remains with a right hip wound that is CDI, and remains with a brace. She notes her pain to be in good control. She is undergoing physical therapy and frequent nursing cares. Plan: Continue post op care, re-start Coumadin today. Monitor for signs of decline. Qualifiers: Encounter type: initial encounter Femur location: distal Fracture morphology: unspecified fracture morphology Qualified Code(s): S72.401A - Unspecified fracture of lower end of right femur, initial encounter for closed fracture (2) HTN (hypertension) Impression: The patient has a known history of this and is prescribed Losartan at home, which is continued here. Today, she is running high at 139/66 and this is likely due to mild fluid overload. Plan: Continue to monitor vital signs, continue meds and stop continuous fluids. Qualifiers: Hypertension type: essential hypertension Qualified Code(s): I10 - Essential (primary) hypertension (3) Anticoagulant long-term use Impression: The patient was recently started on warfarin at 5 mg PO daily, and her last INR was 1.1. We will watch carefully for signs of bleeding and continue low dose Lovenox. Plan: Continue post-op care and add daily INR lab, continue warfarin. (4) Atrial fibrillation and flutter Impression: The patient has a history of TIAs, with left sided weakness. She is chronically anticoagulated with warfarin, which was restarted today. She has been in atrial fibrillation. She continues on metoprolol and diltiazem. Plan: Continue rate control meds, and anticoagulant. (5) E. coli UTI (urinary tract infection) Impression: A urine sample from 04/15/18 shows e. coli, with several sensitivities. She has been prescribed Macrobid, which continues. Plan: Continue to monitor for urinary symptoms and continue medications. (6) Hyponatremia Impression: The patient's sodium today was improved at 129. She states that she has a history of this and on her last hospital stay was placed in the ICU due to this condition. Plan: continue to monitor daily labs.
--- NOTE | 2018-04-20 13:30 | PROVIDER PROGRESS NOTE ---
Subjective - Prog Note Date Prog Note Date: 04/20/18 Prog Note Time: 13:27 - Subjective Pt reports feeling: Improved Objective - Vital Signs/Intake & Output Vital Signs: Vital Signs x48h Temp Pulse Pulse Pulse Resp BP BP 04/20/18 10:20 91 87 170/71 H 04/20/18 08:00 37.0 C 65 19 136/69 H BP Pulse Ox 04/20/18 10:20 152/73 H 04/20/18 08:00 98 Intake & Output: Intake & Output 04/17/18 04/18/18 04/19/18 04/20/18 23:59 23:59 23:59 23:59 Intake Total 1920 1350 3978.33 240 Output Total 9227 469 1146 1650 Balance 70 700 2603.33 -1410 - Lab Results Fish Bones: 04/20/18 04:30 04/20/18 04:30 Other Labs: Lab Results x24hrs 04/20/18 04/20/18 04/20/18 Range/Units 04:30 04:30 04:30 WBC 6.6 (4.8-10.8) x10^3/uL RBC 3.13 L (4.20-5.40) 10^6/uL Hgb 9.3 L (12.0-16.0) g/dL Hct 27.3 L (37.0-47.0) % MCV 87.5 (81.0-99.0) fL MCH 29.8 (27.0-31.0) pg MCHC 34.0 (32.0-36.0) g/dL RDW 14.6 (12.0-15.0) % Plt Count 217 (130-450) 10^3/uL MPV 7.3 L (7.9-10.8) fL Neut # (Auto) 5.2 (1.5-6.6) 10^3/uL Lymph # (Auto) 0.6 L (1.5-3.5) 10^3/uL [place] # (Auto) 0.6 (0.0-1.0) 10^3/uL Eos # (Auto) 0.1 (0.0-0.7) 10^3/uL Baso # (Auto) 0.1 (0.0-0.1) 10^3/uL Absolute Nucleated RBC 0.00 x10^3/uL Nucleated RBC % 0.0 /100WBC PT 12.2 (9.9-12.6) secs INR 1.1 (0.8-1.2) Sodium 129 L (135-145) mmol/L Potassium 4.3 (3.5-5.0) mmol/L Chloride 99 L (101-111) mmol/L Carbon Dioxide 24 (21-32) mmol/L Anion Gap 6.0 (6-13) BUN 10 (6-20) mg/dL Creatinine 0.3 L (0.4-1.0) mg/dL Estimated GFR (MDRD) 217 (>89) Glucose 105 H (70-100) mg/dL Calcium 8.4 L (8.5-10.3) mg/dL Total Bilirubin 0.7 (0.2-1.0) mg/dL AST 16 (10-42) IU/L ALT 11 (10-60) IU/L Alkaline Phosphatase 52 (42-121) IU/L Total Protein 5.7 L (6.7-8.2) g/dL Albumin 3.3 (3.2-5.5) g/dL Globulin 2.4 (2.1-4.2) g/dL Albumin/Globulin Ratio 1.4 (1.0-2.2) - Other Results/Comments Other Results/Comments: EXAM: Up in chair without problem. Sensation intact. Moves toes well. Good cap filling. Immobilizer on. Assessment/Plan - Problem List (1) Closed right femoral fracture Impression: Satis post op PLAN: mobilize as tolerated. To SNF in AM. Contiue PT: Walker ambulate - WBAT on right in knee immobilizer Orthopedic office in 2 weeks for paola out and XR. Will likely to ba able to wean off immobilizer and begin gentle knee AAROM. Qualifiers: Encounter type: initial encounter Femur location: distal Fracture morphology: unspecified fracture morphology Qualified Code(s): S72.401A - Unspecified fracture of lower end of right femur, initial encounter for closed fracture
[2018-04-20] MEDS: WARFARIN 5 MG TABLET PO SCH (14:06)
[2018-04-20] MEDS: ZOLPIDEM 5 MG TABLET PO PRN (21:32)
[2018-04-21 05:10] LABS: ALBUMIN 3.3 g/dL (3.2-5.5); ALBUMIN/GLOBULIN RATIO 1.4 (1.0-2.2); BILIRUBIN,TOTAL 0.8 mg/dL (0.2-1.0); CALCIUM 8.5 mg/dL (8.5-10.3); CREATININE 0.4 mg/dL (0.4-1.0); TOTAL PROTEIN 5.7 g/dL (6.7-8.2)
[2018-04-21 05:25] LABS: INR 1.1 (0.8-1.2); PT - PROTHROMBIN TIME 12.8 secs (9.9-12.6)
[2018-04-21] MEDS: ACETAMINOPHEN 325 MG TABLET PO SCH (05:57)
--- NOTE | 2018-04-21 08:42 | Discharge Plan ---
"Discharge Plan for SNF / [facility] - DC Plan and Transition Orders Disposition: 03 SNF DC/Xfer Condition: Good SNF Transition Orders: Admit to: [facility] under the care of Jalil Colbert Discharge Diagnosis: right femur fracture with repair, anxiety disorder, TIA, CVA without residual deficits, chronic hyponatremia, chronic atrial fibrillation , essential hypertension, acute UTI and debility. Medicare Certification: I certify that [facility] care is medically necessary on a continuing basis for any of the conditions for which she/he is receiving care during hospitalization. Notify PCP of admission and forward orders to primary provider for signature. Weight on admission and weekly. Call PCP immediately if weight increases by 10 pounds or if patient develops dyspnea, chest pain/tightness or edema. House Bowel Program: yes; If no BM after 2 days, nurse may give M.O.M. 30ml PO PRN and /or ducolax Supp 1 SD and /or AAYUSH 250mg P.O., and/or senna 1-2 tabs PO. On day 3 nurse may give repeat above order until residents constipation is resolved. Immunizations: Annual Influenza Vaccine: yes. (between May 07 and December 04. ) Unless allergy or already given. Two-Step PPD: yes per [facility] [phone] or appropriate documentation of approved exceptions. Treatments & Other Orders: Routine physical therapy, continue treatment for UTI. Will need bi-weekly INR checks for sub-therapeutic INR, continue warfarin daily for your atrial fibrillation. Oxygen Orders: not needed since the time of surgery. Lab Tests or X-Rays Orders: Weekly labs for chronic hyponatremia, and follow up with ortho surgery in 2 weeks for re-imaging and follow up. Orthopedic Orders: Change dressing daily as needed. WBAT on right in knee immobilizer. Orthopedic office in 2 weeks for paola out and imaging(Dr. Collado was the original surgeon). Will likely to ba able to wean off immobilizer and begin gentle knee AAROM. Medications: PLEASE REFER TO THE DISCHARGE MEDICATION LIST. Allergies and Adverse Reactions: Allergies Allergy/AdvReac Type Severity Reaction Status Date / Time Pngywbr-Wbn-Zvr Reductase Allergy Unknown Verified 04/15/18 16:52 Inhibitor - Medications New Prescriptions: oxyCODONE [Roxicodone] 5 mg PO Q4HR PRN #20 tablet PRN Reason: Pain Nitrofurantoin [Macrobid] 100 mg PO BID 5 Days #10 capsule Senna [Senokot] 8.6 - 17.2 mg PO DAILY #30 tablet - Diet Type: Geriatric Texture: Regular May have monthly special meal: Yes - Therapies | Activity Therapy: Evaluation | Treat if indicated: PT, OT Rehabilitation Potential: Maximize functional status, Return to independent living, Maintain present ADL Functional Activity: Wt Bearing as Tolerated Assistance Devices: Walker Additional Instructions: WBAT on right in knee immobilizer. Orthopedic office in 2 weeks for paola out and XR. Will likely to ba able to wean off immobilizer and begin gentle knee AAROM."
--- NOTE | 2018-04-21 08:43 | DISCHARGE SUMMARY ---
Discharge Summary Admit Date: 04/15/18 Discharge Date: 04/21/18 Discharging Provider: CASSANDRA Biswas Primary Care Provider: Jalil Colbert Code Status: Attempt Resuscitation Condition at Discharge: Good Discharge Disposition: 03 SNF DC/Xfer - DIAGNOSES Admission Diagnoses: Unspecified fracture of right femur, initial encounter for closed fracture ( S72.91XA) Hypo-osmolality and hyponatremia (E87.1) Chronic atrial fibrillation (I48.2) Other specified anxiety disorders (F41.8) Personal history of transient ischemic attack (TIA), and cerebral infarction without residual deficits (Z86.73) Essential (primary) hypertension (I10) Discharge Diagnoses with Status of Each Condition: Closed right femoral fracture (S72.91XA) new on this admit, now post-op, stable. Rehab at SNF. Hyponatremia (E87.1) stable, chronic. HTN (hypertension) (I10) chronic, stable. Atrial fibrillation and flutter (I48.91) chronic, on rate control meds. E. coli UTI (urinary tract infection) (N39.0) new on this admit, care to continue. Anticoagulant long-term use (Z79.01) chronic, stable. - HPI History of Present Illness: Ms. Li is a 77-yrs-old female with a past medical history of chronic Afib with Coumadin, hx of a small stroke on 2014, a partial right knee replacement on 2016, HTN, anxiety, who present ER for complaint of fall and pain on right knee. 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 pt denies any other injury. Xray of right knee reveals displaced and angulated distal femoral diaphyseal fracture. ER called Dr. Collado. Pt's INR today 1.9. prefer to have Vitamin K for preparing the surgery. pt denies chest pain, palpitation, syncope, headache, fever, chill, shortness of breath. - HOSPITAL COURSE Hospital Course: (1) Closed right femoral fracture The patient suffered from a low impact fall when she lost her balance and stumbled, twisting her leg underneath her as she went to the floor. She felt a "snap." She has not been able to stand since incident occurred because of pain in her knee". ED imaging showed a right distal femur fracture. Unicompartmental knee intact. She is now POD #2 from an Open reduction and locked lateral femoral plating of right distal femur fracture. Pre-Op Diagnosis was Displaced closed periprosthetic right distal femur fracture. The procedure performed was an open reduction and locked distal femoral plating of right distal femur fracture. This was performed by Dr. Collado without complications. She remains with a right hip wound that is CDI, and remains with a brace. She notes her pain to be in good control. She is undergoing physical therapy and frequent nursing cares. (2) HTN (hypertension) The patient has a known history of this and is prescribed Losartan at home, which is continued here. Today, she is running high at 139/66 and this is likely due to mild fluid overload. (3) Anticoagulant long-term use The patient was recently started on warfarin at 5 mg PO daily, and her last INR was 1.1. We will watch carefully for signs of bleeding and continue low dose Lovenox. (4) Atrial fibrillation and flutter The patient has a history of TIAs, with left sided weakness. She is chronically anticoagulated with warfarin. She has been in atrial fibrillation. She continues on metoprolol and diltiazem. (5) E. coli UTI (urinary tract infection) A urine sample from 04/15/18 shows e. coli, with several sensitivities. She has been prescribed Macrobid, which continues. (6) Hyponatremia The patient's sodium today was improved at 129. She states that she has a history of this and on her last hospital stay was placed in the ICU due to this condition. Disposition: The patient was in stable condition and participating well in therapies. She was taken by her son, via private car to the SNF for further rehab. She is to continue treatment for her UTI, and physical therapy. She did not require oxygen and was agreeable. - ALLERGIES Allergies/Adverse Reactions: Allergies Allergy/AdvReac Type Severity Reaction Status Date / Time Kyepzdp-Oqz-Rbf Reductase Allergy Unknown Verified 04/15/18 16:52 Inhibitor - MEDICATIONS Home Medications: Ambulatory Orders Medication Instructions Recorded Confirmed Metoprolol Succinate 50 mg PO BID 11/02/14 04/15/18 Warfarin [Coumadin] 5 mg PO SUTUWEFRSA 11/02/14 04/15/18 Zolpidem Tartrate [Ambien] 5 mg PO QPM PRN 11/02/14 04/15/18 Warfarin Sodium 7.5 mg PO MOTH 04/15/18 04/15/18 Chlorthalidone 25 mg PO DAILY #30 04/21/18 04/15/18 FLUoxetine [PROzac] 40 mg PO DAILY #30 04/21/18 04/15/18 Losartan [Cozaar] 50 mg PO BID #60 04/21/18 04/15/18 Nitrofurantoin [Macrobid] 100 mg PO BID 5 Days #10 capsule 04/21/18 Senna [Senokot] 8.6 - 17.2 mg PO DAILY #30 tablet 04/21/18 diltiaZEM CD [Cardizem Cd] 180 mg PO BID #60 04/21/18 04/15/18 oxyCODONE [Roxicodone] 5 mg PO Q4HR PRN #20 tablet 04/21/18 - PHYSICAL EXAM AT DISCHARGE General Appearance: positive: No acute distress, Alert Eyes Bilateral: positive: Normal inspection, PERRL, EOMI ENT: positive: ENT inspection nml, Pharynx nml, No signs of dehydration Neck: positive: Nml inspection, Thyroid nml, No JVD Respiratory: positive: Chest non-tender, No respiratory distress, Breath sounds nml Cardiovascular: positive: No gallop, Irregularly irregular, Systolic murmur, Decreased pulse(s) Peripheral Pulses: positive: 2+ Abdomen: positive: Non-tender, Nml bowel sounds, No distention Back: positive: Nml inspection Skin: positive: Color nml, No rash, Warm, Dry Extremities: positive: Pedal edema (BLE trace), Joint swelling (Righ low hip, post op dressing-CDI.) Neurologic/Psychiatric: positive: Oriented x3, CN's nml (2-12), Motor nml, Sensation nml, Mood/affect nml Reflexes: Bicep (R): 3+, Bicep (L): 3+ - LABS Result Diagrams: 04/20/18 04:30 04/21/18 04:40 - DIAGNOSTIC IMAGING Diagnostic Imaging Results: Final report reviewed Diagnostic Imaging Results Comments: EXAM: RIGHT KNEE RADIOGRAPHY EXAM DATE: 04/15/2018 01:24 PM. IMPRESSION: Displaced and angulated distal femoral diaphyseal fracture EXAM: RIGHT FEMUR RADIOGRAPHY EXAM DATE: 04/15/2018 04:39 PM. IMPRESSION: Acute, angulated, displaced distal right femur diaphyseal fracture with 45 degrees of dorsal angulation. - FOLLOW UP Follow Up: Disposition: 03 SNF DC/Xfer Condition: Good SNF Transition Orders: Admit to: [facility] under the care of Jalil Colbert Discharge Diagnosis: right femur fracture with repair, anxiety disorder, TIA, CVA without residual deficits, chronic hyponatremia, chronic atrial fibrillation , essential hypertension, acute UTI and debility. - TIME SPENT Time Spent in Discharge (Minutes): 60
[2018-04-21] MEDS: NITROFURANTOIN MACRO 100 MG CAPSULE PO SCH (09:25)
[2018-04-21] MEDS: POLYETHYLENE GLYCOL 3350 17 GM PACKET PO SCH (09:25)
[2018-04-21] MEDS: METOPROLOL SUCCINATE 50 MG TABLET PO SCH (09:25)
[2018-04-21] MEDS: DOCUSATE SODIUM 100 MG CAPSULE PO PRN (09:25)
[2018-04-21] MEDS: diltiaZEM CD 180 MG CAPSULE PO SCH (09:25)
[2018-04-21] MEDS: MAGNESIUM OXIDE 400 MG TABLET PO SCH (09:25)
[2018-04-21] MEDS: SODIUM CHLORIDE FLUSH 0.9% 10 ML SYRINGE IVP SCH (09:25)
[2018-04-21] MEDS: FAMOTIDINE 20 MG TABLET PO SCH (09:25)
[2018-04-21] MEDS: SENNA 8.6 MG TABLET PO SCH (09:25)
[2018-04-21] MEDS: FLUoxetine 10 MG CAPSULE PO SCH (09:25)
[2018-04-21] MEDS: LOSARTAN 50 MG TABLET PO SCH (09:25)
[2018-04-21] MEDS: oxyCODONE 5 MG TABLET PO PRN (09:25)
[2018-04-21 12:43] VITALS: BP 152/70
== END 2018-04-21 13:30 | DRG 481 ==
LOC: EDUNIT# → SUPCPDRO 12:11 → ED 12:11 → MS3 16:24
PROVIDERS: ADMIT Nurse Practitioner Gerontology; ATTEND Nurse Practitioner
PROC: 0QSB04Z Reposition Right Lower Femur with Internal Fixation Device, Open Approach (ICD-10-PCS; principal; 2018-04-18 09:15)
DX: S72.401A Unspecified fracture of lower end of right femur, initial encounter for closed fracture (principal); M97.01XA Periprosthetic fracture around internal prosthetic right hip joint, initial encounter; I48.92 Unspecified atrial flutter; Z96.651 Presence of right artificial knee joint; I48.91 Unspecified atrial fibrillation; N39.0 Urinary tract infection, site not specified; E87.1 Hypo-osmolality and hyponatremia; W18.30XA Fall on same level, unspecified, initial encounter; Z87.891 Personal history of nicotine dependence; Z96.641 Presence of right artificial hip joint; I48.2 Chronic atrial fibrillation; Z79.01 Long term (current) use of anticoagulants; I10 Essential (primary) hypertension; B96.20 Unspecified Escherichia coli [E. coli] as the cause of diseases classified elsewhere; F41.9 Anxiety disorder, unspecified; Z86.73 Personal history of transient ischemic attack (TIA), and cerebral infarction without residual deficits; E87.6 Hypokalemia
CPT/HCPCS: 29530; 36415; 36569; 80053; 81001; 81003; 83690; 83735; 85025; 85610; 86850; 86900; 86901; 87086; 87181; 93306; 96374; 99284

== ENCOUNTER 2018-06-03 11:28 | Outpatient (CLI) | payer MEDICARE, BC ==
[2018-06-03 18:52] LABS: PT - PROTHROMBIN TIME 57.5 secs (9.9-12.6)
[2018-06-03 21:11] LABS: INR 5.4 (0.8-1.2)
== END 2018-06-03 11:29 | disposition home or self-care (01) ==
LOC: LAB.N 11:28
PROVIDERS: ATTEND Pharmacist
DX: I48.2 Chronic atrial fibrillation (principal)
CPT/HCPCS: 85610

== ENCOUNTER 2018-06-17 10:03 | Outpatient (CLI) | payer MEDICARE, BC | END 2018-06-17 10:04 | disposition home or self-care (01) | LOC: LAB.N 10:03 | PROVIDERS: ATTEND Pharmacist | DX: I48.2 Chronic atrial fibrillation (principal) | CPT/HCPCS: 85610 ==

== ENCOUNTER 2018-06-23 11:06 | Outpatient (CLI) | payer MEDICARE, BC | END 2018-06-23 11:07 | disposition home or self-care (01) | LOC: SC 11:06 | PROVIDERS: ATTEND Nurse Practitioner Family | DX: G47.33 Obstructive sleep apnea (adult) (pediatric) (principal) | CPT/HCPCS: 99213; G0463; 99212 ==

== ENCOUNTER 2018-08-03 08:00 | Outpatient (CLI) | payer MEDICARE, BC | END 2018-08-03 08:01 | LOC: LAB.N 08:00 | PROVIDERS: ATTEND Pharmacist | DX: I48.2 Chronic atrial fibrillation (principal) | CPT/HCPCS: 85610 ==

== ENCOUNTER 2018-09-01 13:11 | Outpatient (CLI) | payer MEDICARE, BC | END 2018-09-01 23:59 | disposition home or self-care (01) | LOC: LAB.N 13:11 | PROVIDERS: ATTEND Pharmacist | DX: I48.2 Chronic atrial fibrillation (principal) | CPT/HCPCS: 85610 ==

== ENCOUNTER 2018-09-16 08:00 | Outpatient (CLI) | payer MEDICARE, BC | END 2018-09-16 23:59 | disposition home or self-care (01) | LOC: LAB.N 08:00 | PROVIDERS: ATTEND Pharmacist | DX: I48.2 Chronic atrial fibrillation (principal) | CPT/HCPCS: 85610 ==

== ENCOUNTER 2018-10-14 08:00 | Outpatient (CLI) | payer MEDICARE, BC | END 2018-10-14 23:59 | disposition home or self-care (01) | LOC: LAB.N 08:00 | PROVIDERS: ATTEND Pharmacist | DX: I48.2 Chronic atrial fibrillation (principal) | CPT/HCPCS: 85610 ==

== ENCOUNTER 2018-11-04 13:39 | Outpatient (CLI) | payer MEDICARE, BC | END 2018-11-04 23:59 | disposition home or self-care (01) | LOC: LAB.N 13:39 | PROVIDERS: ATTEND Pharmacist | DX: I48.2 Chronic atrial fibrillation (principal) | CPT/HCPCS: 85610 ==

== ENCOUNTER 2019-11-06 10:47 | Outpatient (CLI) | payer MEDICARE, BC ==
[2019-11-06 11:34] VITALS: BP 144/64
--- NOTE | 2019-11-06 11:34 | SLEEP CARE CONSULTATION ---
Information from patient questionnaire entered by Gia Mauro. I have reviewed and concur with the information entered by Gia Mauro. This document represents the service I personally performed and the decisions made by me, Tabatha Schulz, RN, MSN, L[employer]. History of Present Illness Previous diagnosis: Mild, Obstructive Sleep Apnea-Hypopnea Syndrome AHI: 12 Reason for follow up: annual (last seen 2018) Equipment type: CPAP Equipment obtained from: [employer] Mask style: Nasal pillows Backup mask available: Yes (old mask ) Last cushion change: a month ago CPAP Compliance Data - Data Reviewed with Patient Average duration of nightly device use: 9.4 Compliance rate %: 98.9 (180 days) Current pressure setting (cmH2O): 7 Humidity settin Heated hose settin Average residual AHI: 6.2 Average large leak: 1 min 1 sec Subjective Patient concerns: reports: condensation in mask/hose (rare ), nasal congestion (seasonal ). denies: aerophagia, mask discomfort, air blowing in eyes, mask leak noise, dry mouth, nose, throat, epistaxis Observed to snore while using device: No (sleeps alone ) Current pressure setting perceived as: comfortable On therapy, patient: reports: sleeping better (cannot sleep without CPAP ), awakening more refreshed, being more awake and alert during the day, more rested overall. denies: drowsiness while driving Initial [place] Sleepiness Scale score: 3 Current [place] Sleepiness Scale score: 0 Allergies and Home Medications Known drug allergies: Yes (statuns ) Home medication list reviewed: Yes (warfarin replaced by Eliquis ) Allergy and home medication list: Medication Name (generic/name brand) Strength & Dosage Eliquis 5mg twice daily Ambien (Zolpidem) 10mg tab daily at bedtime, prn Fluoxetine HCI 40mg cap one daily Diltaizem HCI ER 180mg cap one twice daily Metoprolol Succinate ER 50mg tab 1 daily Losartan Potassium 50mg tab one twice daily Review of Systems Review of systems same as previous: Yes (walks with cane since hip and leg surgery 2018 ) Physical Exam Blood Pressure: 144/64 Cuff size: long Heart Rate: 78 O2 Saturation: 98 Height: 5 ft 7 in Weight: 198 lb 12.8 oz Weight change since last visit: gained 6 pounds Body Mass Index: 31.1 BMI Classification: Obese Impression and Plan 1. Obstructive Sleep Apnea-Hypopnea Syndrome, mild , with good treatment compliance and slightly elevated residual. On CPAP therapy, the patient has better sleep quality and is more rested overall. The patients pressure will be changed to autoCPAP 7-8cmH20 For elevation of residual AHI. Patient advised to contact me if pressure change is uncomfortable so that it can be adjusted. Goals for apnea control discussed.She brought her [employer] filter and the filter she has been sent from [employer]. She is getting the old filter from old device and needs new style so order written. To reduce condensation, I ordered a heated hose. Until then, she can reduce the humidity. Printed instructions given and shown how to change on sample device. Patient has gained weight. Currently patients is obese with a BMI is 30.4. Obesity increases the risk of apnea, CPAP pressure requirements and overall health risks especially cardiovascular and diabetes. Thus patient is advised to lose weight. Weight loss can be done with reducing portion size, reducing refined foods and balancing content with vegetables, fruit and protein. In addition tracking food intake will allow awareness of how to modify diet to achieve weight loss goals. Also eating more slowly will allow more awareness of food intake and enjoyment of food while assisting patient to modify intake at each meal. A diet consultation can be helpful in achieving optimal weight loss goals. The BMI chart was reviewed. The patient would like to reduce to 20 pounds bringing their BMI down to about 26- 27. Patient encouraged to discuss their weight loss goals with their PCP and consider a referral to a model technician. The patient's CPAP pressure range should accommodate some weight loss. Symptoms to report for additional pressure adjustment discussed. Patient's apnea severity and rationale for treatment to reduce apnea, improve sleep quality and reduce cardiovascular and cerebrovascular events was reviewed. I also reviewed the benefit of consistent device use of CPAP for hypertension, anxiety / depression. * * Change CPAP pressure to 7-8 cmH2O * Correct filter * heated hose * adjust humidity * Notify me if snoring with mask or feeling that the pressure is too much or too little * Attempt to lose weight * Follow up with PCP for diet consultation referral * Call this office if any problems using CPAP * Return for follow up in 1 year , or sooner if concerns arise Time Spent with Patient (minutes): 30 I spent 100% of this visit face to face with the patient with greater than 50% of this was spent time counseling the patient and coordination of care.
== END 2019-11-06 10:48 | disposition home or self-care (01) ==
LOC: SC 10:47
PROVIDERS: ATTEND Nurse Practitioner Family
DX: G47.33 Obstructive sleep apnea (adult) (pediatric) (principal); E66.9 Obesity, unspecified; Z68.31 Body mass index [BMI] 31.0-31.9, adult
CPT/HCPCS: 99214; G0463; 99212

== ENCOUNTER 2020-09-28 08:49 | Outpatient (CLI) | payer MEDICARE, BC | END 2020-09-28 08:50 | disposition critical access hospital (66) | LOC: EMS 08:49 | PROVIDERS: ATTEND Surgery | DX: R42 Dizziness and giddiness (principal); R51.9 Headache, unspecified | CPT/HCPCS: A0425; A0427 ==

== ENCOUNTER 2020-09-28 09:10 | Emergency (ER) | payer MEDICARE, BC ==
--- NOTE | 2020-09-28 09:25 | ED Physician Documentation ---
PD HPI HEAD INJURY - Stated complaint Stated Complaint: FALL - Chief complaint Chief Complaint: Trauma Hd/Nk - History obtained from History obtained from: Patient, EMS - History of Present Illness Mechanism of head injury: Fell (she is not sure the reason for falling. She says she had been having some balance problems lately, and had a slip/slump to floor couple days ago without injury, while using her walker. She remembers walking with walker into kitchen, then was on the floor. Did not have any preceding chest pain, etc.) Where head injury occurred: Home Timing - onset: Today (just INSULATION [employer]) Location of injury: Right, Front Associated symptoms: LOC (does not remember the impact itself.), Amnesia. No: AMS (alert and conversant after), Nausea / vomiting Contributing factors: Anticoagulated. No: Intoxicated Similar symptoms before: Has not had sx before Recently seen: Not recently seen Review of Systems Constitutional: denies: Fever, Chills Nose: denies: Rhinorrhea / runny nose, Congestion Throat: denies: Sore throat Cardiac: denies: Chest pain / pressure, Palpitations, Pedal edema Respiratory: denies: Cough GI: denies: Abdominal Pain, Vomiting, Diarrhea Neurologic: reports: Headache (frontal area only). denies: Focal weakness, Numbness PD PAST MEDICAL HISTORY - Past Medical History Cardiovascular: Hypertension, Atrial fibrillation Respiratory: Sleep apnea, CPAP use Neuro: CVA Endocrine/Autoimmune: None GI: Diverticulitis : None HEENT: None Psych: Depression, Anxiety Musculoskeletal: Osteoarthritis Derm: None - Past Surgical History Past Surgical History: Yes Ortho: Knee replacement /DIRECTOR OF MANAGED SERVICES: Other HEENT: Tonsil/Adenoidectomy - Present Medications Home Medications: Ambulatory Orders Medication Instructions Recorded Confirmed Metoprolol Succinate 50 mg PO BID 11/02/14 09/28/20 Zolpidem Tartrate [Ambien] 5 mg PO QPM PRN 11/02/14 09/28/20 Chlorthalidone 25 mg PO DAILY #30 04/21/18 09/28/20 FLUoxetine [PROzac] 40 mg PO DAILY #30 04/21/18 09/28/20 Losartan [Cozaar] 50 mg PO BID #60 04/21/18 09/28/20 diltiaZEM CD [Cardizem Cd] 180 mg PO BID #60 04/21/18 09/28/20 Apixaban [Eliquis] 5 mg PO BID 09/28/20 09/28/20 - Allergies Allergies/Adverse Reactions: Allergies Allergy/AdvReac Type Severity Reaction Status Date / Time Zccesdq-Qfy-Koi Reductase Allergy Unknown Verified 09/28/20 09:22 Inhibitor - Social History Does the pt smoke?: No Smoking Status: Former smoker Does the pt drink ETOH?: Yes Does the pt have substance abuse?: No - Immunizations Immunizations are current?: Yes - POLST Patient has POLST: No POLST Status: Full Code PD ED PE NORMAL - Vitals Vital signs reviewed: Yes - General General: Alert and oriented X 3, Well developed/nourished, Other (frontal contusion with swelling, about 3-4 cm diameter. Locally tender. ) - HEENT HEENT: PERRL, EOMI - Neck Neck: Supple, no meningeal sign, No adenopathy - Cardiac Cardiac: No murmur. No: RRR (irregular but rate controlled. ) - Respiratory Respiratory: Clear bilaterally - Abdomen Abdomen: Soft, Non tender - Derm Derm: Normal color, Warm and dry - Extremities Extremities: No tenderness to palpate, Normal ROM s pain - Neuro Neuro: Alert and oriented X 3, jig and fixture builder 2-12 intact, No motor deficit, No sensory deficit, Normal speech Eye Opening: Spontaneous Motor: Obeys Commands Verbal: Oriented GCS Score: 15 Results - Vitals Vitals: Vital Signs - 24 hr 09/28/20 09/28/20 09/28/20 09:10 09:51 10:21 Temperature 37.4 C Heart Rate 87 80 86 Heart Rate [ Sitting] Heart Rate [ Standing] Heart Rate [ Supine] Respiratory 17 23 22 Rate Blood Pressure 182/99 H 193/87 H 192/94 H Blood Pressure [Sitting] Blood Pressure [Standing] Blood Pressure [Supine] O2 Saturation 98 100 99 09/28/20 09/28/20 09/28/20 10:30 11:00 11:30 Temperature 37.0 C Heart Rate 84 89 87 Heart Rate [ Sitting] Heart Rate [ Standing] Heart Rate [ Supine] Respiratory 24 18 18 Rate Blood Pressure 194/99 H 189/87 H 179/100 H Blood Pressure [Sitting] Blood Pressure [Standing] Blood Pressure [Supine] O2 Saturation 96 100 99 09/28/20 11:39 Temperature Heart Rate Heart Rate [ 91 Sitting] Heart Rate [ 90 Standing] Heart Rate [ 84 Supine] Respiratory Rate Blood Pressure Blood Pressure 188/92 H [Sitting] Blood Pressure 194/95 H [Standing] Blood Pressure 199/89 H [Supine] O2 Saturation Oxygen O2 Source Room air - EKG (time done) 09:15 Rate: Rate (enter#) (95) Rhythm: Atrial fibrillation [place]: Normal QRS: Normal Ischemia: Normal ST segments. No: ST elevation c/w ischemia, ST depression - Labs Labs: Laboratory Tests 09/28/20 09/28/20 09/28/20 09:15 09:15 09:15 WBC 6.8 RBC 4.47 Hgb 13.7 Hct 40.7 MCV 91.1 MCH 30.6 MCHC 33.7 RDW 12.1 Plt Count 244 MPV 9.1 Neut # (Auto) 5.6 Lymph # (Auto) 0.5 L [place] # (Auto) 0.6 Eos # (Auto) 0.1 Baso # (Auto) 0.1 Absolute Nucleated RBC 0.00 Nucleated RBC % 0.0 Sodium 127 L Potassium 3.7 Chloride 93 L Carbon Dioxide 25 Anion Gap 9.0 BUN 13 Creatinine 0.5 Estimated GFR (MDRD) 120 Glucose 122 H Calcium 9.3 Magnesium 1.9 Total Bilirubin 1.3 H AST 16 ALT 15 Alkaline Phosphatase 87 Troponin I High Sens 2.5 Total Protein 7.2 Albumin 4.5 Globulin 2.7 Albumin/Globulin Ratio 1.7 - Rads (name of study) head CT Radiology: Prelim report reviewed (Frontal soft tissue swelling without any underlying fractures. No intracranial hemorrhage.), See rad report cervical CT Radiology: Prelim report reviewed (Chronic arthritic changes with mild spondylolisthesis. No acute fractures.), See rad report PD MEDICAL DECISION MAKING - ED course Complexity details: reviewed results (No fractures nor ICH. Vitals and labs are good. Monitor showing rate controlled atrial fib. ), considered differential, d/w patient Departure - Departure Disposition: 01 Home, Self Care Clinical Impression: Anticoagulant long-term use Forehead contusion Qualifiers: Encounter type: initial encounter Qualified Code(s): S00.83XA - Contusion of other part of head, initial encounter Fall Qualifiers: Encounter type: initial encounter Qualified Code(s): W19.XXXA - Unspecified fall, initial encounter Condition: Stable Record reviewed to determine appropriate education?: Yes Instructions: ED Contusion Face Follow-Up: Jalil Colbert MD [Primary Care Provider] - Comments: Cool towels to the area of swelling periodically today to reduce swelling. The hematoma (collection of blood under the skin) will likely take a week or 2 to fully absorb. [place] will likely allow some bruising to develop lower on the face and around the eye. Tylenol if needed for pains every 4 hours. Continue usual medications. Your CT of the head and neck do not show any fractures of the face or neck nor any bleeding within this brain compartment. Return if confusion headache vomiting or other concerns. Discharge Date/Time: 09/28/20 12:37
[2020-09-28 09:39] LABS: BASOPHILS # (AUTO) 0.1 10^3/uL (0.0-0.1); BASOPHILS % (AUTO) 0.7 %; EOSINOPHILS # (AUTO) 0.1 10^3/uL (0.0-0.7); EOSINOPHILS % (AUTO) 1.3 %; HGB - HEMOGLOBIN 13.7 g/dL (12.0-16.0); LYMPHOCYTES # (AUTO) 0.5 10^3/uL (1.5-3.5); LYMPHOCYTES % (AUTO) 6.6 %; MEAN CORPUSCULAR HEMOGLOBIN 30.6 pg (27.0-31.0); MEAN CORPUSCULAR HGB CONC 33.7 g/dL (32.0-36.0); MEAN CORPUSCULAR VOLUME 91.1 fL (81.0-99.0); MEAN PLATELET VOLUME 9.1 fL (7.9-10.8); MONOCYTES # (AUTO) 0.6 10^3/uL (0.0-1.0); MONOCYTES % (AUTO) 8.1 %; NEUTROPHILS # (AUTO) 5.6 10^3/uL (1.5-6.6); NEUTROPHILS % (AUTO) 82.6 %; PLT - PLATELET COUNT 244 10^3/uL (130-450); RED BLOOD COUNT 4.47 10^6/uL (4.20-5.40); RED CELL DISTRIBUTION WIDTH 12.1 % (12.0-15.0); WHITE BLOOD COUNT 6.8 x10^3/uL (4.8-10.8)
[2020-09-28 09:48] LABS: ALBUMIN 4.5 g/dL (3.2-5.5); ALBUMIN/GLOBULIN RATIO 1.7 (1.0-2.2); BILIRUBIN,TOTAL 1.3 mg/dL (0.2-1.0); CALCIUM 9.3 mg/dL (8.5-10.3); CREATININE 0.5 mg/dL (0.4-1.0); MAGNESIUM 1.9 mg/dL (1.7-2.8); TOTAL PROTEIN 7.2 g/dL (6.7-8.2)
--- NOTE | 2020-09-28 10:27 | CT Report ---
PROCEDURE: HEAD WO INDICATIONS: fall, head injury; on DOAC TECHNIQUE: Noncontrast 4.5 mm thick angled axial sections acquired from the foramen magnum to the vertex. For r adiation dose reduction, the following was used: automated exposure control, adjustment of mA and/or kV according to patient size. COMPARISON: Head CT dated 05/21/2015 FINDINGS: Image quality: Excellent. CSF spaces: Basal cisterns are patent. No extra-axial fluid collections. Ventricles and extra-axial CSF spaces are prominent consistent with cerebral atrophy. Brain: No midline shift. No intracranial masses or hemorrhage. Ware-white matter interface is norm al. There is diffuse white matter hypoattenuation throughout the deep and superficial white matter. Multiple subcentimeter remote lacunar infarcts are noted in within the left caudate, right thalamus, and left parietal lobe. No acute intracranial abnormality. Skull and face: Calvarium and visualized facial bones are intact, without suspicious lesions. Large hematoma overlying the right frontal bone extending to the level of the right orbit. Sinuses: Visualized sinuses and mastoids are clear. IMPRESSION: Large soft tissue hematoma overlying the right frontal bone extending to the orbit without underlying displaced skull fracture or acute intracranial hemorrhage. Findings consistent with microvascular ischemic changes and cerebral atrophy including multiple remot e lacunar infarcts. No acute transcortical infarction. Reviewed by: Bhargav De León DO on 09/28/2020 9:26 AM [facility] Approved by: Bhargav De León DO on 09/28/2020 9:26 AM [facility] Station ID: [id number]
--- NOTE | 2020-09-28 10:34 | CT Report ---
PROCEDURE: CERVICAL SPINE WO INDICATIONS: fall with head injury TECHNIQUE: Noncontrast 3 mm thick sections acquired from the skull base to the T4 level. Sagittal and coronal r eformats were then constructed. For radiation dose reduction, the following was used: automated exp osure control, adjustment of mA and/or kV according to patient size. COMPARISON: None. FINDINGS: Image quality: Excellent. Bones: There is no acute fracture. Vertebral body heights appear maintained. Focal reversal of the ce rvical lordosis centered at C4-C5. There is grade 1 anterolisthesis of C3 on C4 and retrolisthesis of C5 on C6 and anterolisthesis of C7 on T1. Facets are appropriately aligned. Multiple levels of inter vertebral disc space loss. Diffuse endplate degenerative changes. Facet arthropathy. No significant b joyce spinal canal stenosis. Multiple levels of mild bony neural foraminal stenosis. Soft tissues: Prevertebral soft tissues are normal in thickness. No paravertebral hematomas. No ap ical pneumothoraces. Vascular calcifications are noted within the aorta and proximal branch vessels. A few subcentimeter thyroid nodules. IMPRESSION: No acute fracture. Multiple pole levels of listhesis, favored to be degenerative in etiology. Moderate multilevel cervical spondylosis with multiple levels of mild neural foraminal stenosis. Reviewed by: Bhargav De León DO on 09/28/2020 9:33 AM DANIAL Approved by: Bhargav De León DO on 09/28/2020 9:33 AM [place] Station ID: [id number]
[2020-09-28] MEDS ORDERED: ACETAMINOPHEN 325 MG TABLET PO STA (11:20)
[2020-09-28 11:40] VITALS: BP 199/89
== END 2020-09-28 12:37 | disposition home or self-care (01) ==
LOC: EDUNIT# → ED 09:10
DX: S00.83XA Contusion of other part of head, initial encounter (principal); W18.30XA Fall on same level, unspecified, initial encounter; Y93.01 Activity, walking, marching and hiking; Y92.000 Kitchen of unspecified non-institutional (private) residence as the place of occurrence of the external cause; R41.3 Other amnesia; M43.12 Spondylolisthesis, cervical region; I48.91 Unspecified atrial fibrillation; Z79.01 Long term (current) use of anticoagulants; I10 Essential (primary) hypertension; Z87.891 Personal history of nicotine dependence
CPT/HCPCS: 36415; 70450; 72125; 80053; 83735; 84484; 85025; 93005; 99284; A9270

== ENCOUNTER 2020-12-04 09:38 | Outpatient (CLI) | payer MEDICARE, BC ==
--- NOTE | 2020-12-04 10:29 | SLEEP CARE CONSULTATION ---
Information from patient questionnaire entered by Gia Mauro. I have reviewed and concur with the information entered by Gia Mauro. This document represents the service I personally performed and the decisions made by , Cristela Osei ARNP. History of Present Illness Service Date and Time: 12/04/2020 0938 Previous diagnosis: Mild, Obstructive Sleep Apnea-Hypopnea Syndrome AHI: 12 (in 2008) Reason for follow up: annual (last seen 11/2019) Equipment type: CPAP Equipment obtained from: [employer] (getting supplies as needed) Mask style: Nasal pillows Backup mask available: Yes (old mask) Last cushion change: last week Prior sleep studies: Yes Year and Where: 2008 - [facility] Type of Sleep Study: Polysomnography HPI additional information: SANDEEP TRAVIS was diagnosed to have mild, AHI 12, obstructive sleep apnea-hypopnea syndrome and returned today for CPAP therapy annual follow-up. CPAP Compliance Data - Data Reviewed with Patient Average duration of nightly device use: 9 hr 38 min Compliance rate %: 98.3 (180 days) Current pressure setting (cmH2O): 7-8 Humidity settin Heated hose settin Average residual AHI: 4.2 Average large leak: 5 min 43 sec Subjective Patient concerns: denies: aerophagia, mask discomfort, air blowing in eyes, mask leak noise, condensation in mask/hose, nasal congestion, dry mouth, nose, thr oat, epistaxis, other Observed to snore while using device: No Current pressure setting perceived as: too low (on loaner ResMed device) On therapy, patient: reports: sleeping better, awakening more refreshed, being more awake and alert during the day, more rested overall. denies: drowsiness while driving Initial [place] Sleepiness Scale score: 3 (in 2008) Current [place] Sleepiness Scale score: 2 Allergies and Home Medications Home medication list reviewed: Yes (no new medications) Review of Systems Review of systems same as previous: No (fell in kitchen end of September) Physical Exam Heart Rate: 81 O2 Saturation: 98 Height: 5 ft 7 in Weight: 192 lb Body Mass Index: 30.0 BMI Classification: Obese Impression and Plan 1. Obstructive Sleep Apnea-Hypopnea Syndrome, mild, with good treatment comp liance and good apnea control. On CPAP therapy, the patient has better sleep quality and is more rested overall. Patient took a bad fall at home and has been recovering slowly. She states sometime in September/October her Dreamstation stopped working and [facility] brought her a loaner ResMed machine because she is not due for an updated machine until 02/2022. She states the pressure feels too low now and her loaner machine starts at 4 (which is probably the starting pressure and then it ramps up). I will increase the pressure to 7-9cmH2O since if still feels the pressure is too low. Her residual AHI is at 4.2. She has been using more high 8 cmH2O and would probably benefit from increasing to 9 cmH2O. She is to bring in the memory chip from the loaner machine since we do not have the download for the last 6 weeks. She or her son will bring in the other chip so we can verify and change machine pressure. She voiced understanding of reviewed information and plan of care. Patient's apnea severity and rationale for treatment to reduce apnea, improve sleep quality and reduce cardiovascular and cerebrovascular events was reviewed. I also reviewed the benefit of consistent device use of CPAP for hypertension, and depression/anxiety. * Change autoCPAP pressure at 7-9 cmH2O * Notify me if snoring with mask or feeling that the pressure is too much or too little * Attempt to lose weight * Call this office if any problems using CPAP * Return for follow up in 1 year, or sooner if concerns arise Counseling Topics: Spare mask, Weight loss health impact Visit Type: In Office Time Spent with Patient (minutes): 27 Provider Statement: I spent 100% of the Face to Face Visit with the patient with greater than 50% spent counseling the patient and coordination of care.
--- OUTSIDE RECORDS SUMMARY | 2020-12-10 23:34 | EXTERNAL MEDICAL SUMMARY RPT | Continuity of Care Document ---
:1940 Demographics Phone Unavailable Preferred Language Unknown Marital Status Unknown [place] Affiliation Unknown Race Unknown Ethnic Group Unknown Author Organization [facility] Address [address] [id number] Phone Social History date description facility [phone]
== END 2020-12-04 09:39 | disposition home or self-care (01) ==
LOC: SC 09:38
PROVIDERS: ATTEND Nurse Practitioner Family
DX: G47.33 Obstructive sleep apnea (adult) (pediatric) (principal); E66.9 Obesity, unspecified; Z68.30 Body mass index [BMI] 30.0-30.9, adult
CPT/HCPCS: 99213; G0463; 99212

== ENCOUNTER 2021-03-06 12:30 | Outpatient (CLI) | payer MEDICARE, BC ==
--- NOTE | 2021-03-06 13:26 | SLEEP CARE CONSULTATION ---
Information from patient questionnaire entered by Gia Mauro. I have reviewed and concur with the information entered by Gia Mauro. This document represents the service I personally performed and the decisions made by , Cristela Osei ARNP. History of Present Illness Service Date and Time: 03/06/2021 1230 Previous diagnosis: Mild, Obstructive Sleep Apnea-Hypopnea Syndrome AHI: 12 (in 2008) Reason for follow up: three month Equipment type: CPAP Equipment obtained from: [employer] (getting supplies as needed) Mask style: Nasal pillows Backup mask available: Yes (old mask) Last cushion change: 2 weeks ago Prior sleep studies: Yes Year and Where: 2008 - [facility] Type of Sleep Study: Polysomnography HPI additional information: SANDEEP TRAVIS was diagnosed to have mild, AHI 12, obstructive sleep apnea-hypopnea syndrome and returned today for CPAP therapy three month follow-up. CPAP Compliance Data - Data Reviewed with Patient Average duration of nightly device use: 9 hr 49 min Compliance rate %: 100 Current pressure setting (cmH2O): 7-9 Average residual AHI: 0.5 Subjective Patient concerns: reports: nasal congestion (occasional). denies: aerophagia, mask discomfort, air blowing in eyes, mask leak noise, condensation in mask/hose, dry mouth, nose, throat, epistaxis, other Observed to snore while using device: No Current pressure setting perceived as: comfortable On therapy, patient: reports: sleeping better, awakening more refreshed, being more awake and alert during the day, more rested overall. denies: drowsiness w hile driving Initial [place] Sleepiness Scale score: 3 (in 2008) Current [place] Sleepiness Scale score: 3 Allergies and Home Medications Home medication list reviewed: Yes (no new meds) Review of Systems Review of systems same as previous: Yes (no changes) Physical Exam Heart Rate: 77 O2 Saturation: 96 Height: 5 ft 7 in Weight: 192 lb Body Mass Index: 30.0 BMI Classification: Obese Impression and Plan 1. Obstructive Sleep Apnea-Hypopnea Syndrome, mild, with excellent treatment compliance and excellent apnea control. On CPAP therapy, the patient has better sleep quality and is more rested overall. Patient has been using a loaner machine since her machine stopped working. She is now eligible for a new device. Thus, the CPAP will be updated. A DWO prescription will be made. Compliance guidelines for new device and follow up discussed. Patient informed of [employer] recall on the DreamStation device. She was encouraged to go on to [email or web address] website to find the [employer] site to go on to register her old device. She voiced understanding and agreement. Patient's apnea severity and rationale for treatment to reduce apnea, improve sleep quality and reduce cardiovascular and cerebrovascular events was reviewed. I also reviewed the benefit of consistent device use of CPAP for hypertension, depression and anxiety. * Continue autoCPAP pressure at 7-9 cmH2O * Notify me if snoring with mask or feeling that the pressure is too much or too little * Attempt to lose weight * Call this office if any problems using CPAP * Return for follow up one month after obtaining new device, or sooner if concerns arise Counseling Topics: Spare mask, Weight loss health impact Visit Type: In Office Time Spent with Patient (minutes): 21 Provider Statement: I spent 100% of the Face to Face Visit with the patient with greater than 50% spent counseling the patient and coordination of care.
== END 2021-03-06 12:31 | disposition home or self-care (01) ==
LOC: SC 12:30
PROVIDERS: ATTEND Nurse Practitioner Family
DX: G47.33 Obstructive sleep apnea (adult) (pediatric) (principal); E66.9 Obesity, unspecified; Z68.30 Body mass index [BMI] 30.0-30.9, adult
CPT/HCPCS: 99213; G0463; 99212

== ENCOUNTER 2022-03-04 09:58 | Outpatient (CLI) | payer MEDICARE, BC ==
[2022-03-04 10:38] VITALS: BP 131/92
--- NOTE | 2022-03-04 10:38 | SLEEP CARE CONSULTATION ---
Information from patient questionnaire entered by Dmitriy Garces MA. I have reviewed and concur with the information entered by Dmitriy Garces MA. This document represents the service I personally performed and the decisions made by , Cristela Osei ARNP. History of Present Illness Service Date and Time: 03/04/2022 0958 Previous diagnosis: Mild, Obstructive Sleep Apnea-Hypopnea Syndrome AHI: 12 (in 2008) Reason for follow up: annual (RESЮЛИЯ KEITH 03/06/2021, WANTS A NEW MACHINE, ) Equipment type: CPAP Equipment obtained from: [employer] (getting supplies as needed) Mask style: Nasal pillows Backup mask available: Yes (old mask) Last cushion change: 2 weeks Prior sleep studies: Yes Year and Where: 2008 - [facility] Type of Sleep Study: Polysomnography HPI additional information: SANDEEP TRAVIS was diagnosed to have mild, AHI 12, obstructive sleep apnea-hypopnea syndrome and returned today for CPAP therapy annual follow-up. Sleep Study - Results Type of Sleep Study: Polysomnography Prior sleep studies: Yes Year and Where: 2008 [facility] CPAP Compliance Data - Data Reviewed with Patient Average duration of nightly device use: 9 hours 18 minutes Compliance rate %: 99 (180 days; 179/180 days of use) Current pressure setting (cmH2O): 8-10 Average residual AHI: 0.4 Central apnea: 0.0 Obstructive apnea: 0.1 Subjective Missed days of use due to: reports: other (power outages) Patient concerns: denies: aerophagia, mask discomfort, air blowing in eyes, mask leak noise, condensation in mask/hose, nasal congestion, dry mouth, nose, throat, epistaxis, other Observed to snore while using device: No Current pressure setting perceived as: too low (just due to allergy issues) On therapy, patient: reports: sleeping better, awakening more refreshed, being more awake and alert during the day, more rested overall. denies: drowsiness while driving Initial [place] Sleepiness Scale score: 3 (in 2008) Current [place] Sleepiness Scale score: 1 () Allergies and Home Medications Known drug allergies: No Drug allergies reviewed: Yes Home medication list reviewed: Yes (no changes) Allergy and home medication list: Allergies Cdwkygi-CGU-IqD Reductase Inhibitor [Zlpmjdp-Amo-Osi Reductase Inhibitor] Allergy (Verified 09/28/20 09:22) Unknown Review of Systems Review of systems same as previous: Yes (no changes) Physical Exam Vital signs obtained and entered by: FABRICE MORTON Blood Pressure: 131/92 (resp 20, pulse 82, left) Cuff size: wrist Heart Rate: 84 O2 Saturation: 98 Height: 5 ft 7 in Weight: 167 lb 8 oz Weight change since last visit: lost weight due to covid Body Mass Index: 26.2 BMI Classification: Overweight Impression and Plan 1. Obstructive Sleep Apnea-Hypopnea Syndrome, mild, with excellent treatment compliance and excellent apnea control. On CPAP therapy, the patient has better sleep quality and is more rested overall. Patient has been using a loaner since her DreamStation stopped working for a few years. She states she is eligible for a new machine and would like to update to a new device. She is happy with her ResMed Airsense 10 and would like to try the Airsense 11. Patient states that she feels the pressure might be a little low but her residual AHI is 0.4. I encouraged her to wait until we change to a new device to see if she still feels like she needs more pressure. She voiced understanding and agreement. Thus, the CPAP will be updated. A DWO prescription will be made. Compliance guidelines for new device and follow up discussed. She would like to continue with current DME supplier. Patient's apnea severity and rationale for treatment to reduce apnea, improve sleep quality and reduce cardiovascular and cerebrovascular events was reviewed. I also reviewed the benefit of consistent device use of CPAP for hypertension, depression and anxiety. Patient is overweight with a BMI of 26.4. She has recently lose weight due to illness (covid). * Continue auto CPAP pressure at 7-9 cmH2O * Update device * Notify me if snoring with mask or feeling that the pressure is too much or too little * Attempt to lose weight * Call this office if any problems using CPAP * Return for follow up one month after obtaining new device, or sooner if concerns arise Counseling Topics: Spare mask, Weight loss health impact Prescriptions: Auto CPAP Visit Type: In Office Time Spent with Patient (minutes): 22 Provider Statement: I spent 100% of the Face to Face Visit with the patient with greater than 50% spent counseling the patient and coordination of care.
== END 2022-03-04 09:59 | disposition home or self-care (01) ==
LOC: SC 09:58
PROVIDERS: ATTEND Nurse Practitioner Family
DX: G47.33 Obstructive sleep apnea (adult) (pediatric) (principal); E66.3 Overweight; Z68.26 Body mass index [BMI] 26.0-26.9, adult
CPT/HCPCS: 99213; G0463; 99212

== ENCOUNTER 2022-05-07 10:46 | Outpatient (CLI) | payer MEDICARE, BC ==
[2022-05-07 11:30] VITALS: BP 118/74
--- NOTE | 2022-05-07 11:30 | SLEEP CARE CONSULTATION ---
Information from patient questionnaire entered by Dmitriy Garces MA. I have reviewed and concur with the information entered by Dmitriy Garces MA. This document represents the service I personally performed and the decisions made by , Cristela Osei ARNP. History of Present Illness Service Date and Time: 05/07/2022 1046 Previous diagnosis: Mild, Obstructive Sleep Apnea-Hypopnea Syndrome AHI: 12 (in 2008) Reason for follow up: first compliance (ЮЛИЯ AUGUSTIN 03/17/2022, ), first compliance after device update Equipment type: CPAP Equipment obtained from: [employer] (getting supplies as needed) Mask style: Nasal pillows Backup mask available: Yes (old mask) Last cushion change: last week Prior sleep studies: Yes Year and Where: 2008 - [facility] Type of Sleep Study: Polysomnography HPI additional information: SANDEEP TRAVIS was diagnosed to have mild, AHI 12.0, obstructive sleep apnea- hypopnea syndrome and returned today for CPAP therapy first compliance after updating device follow-up. Sleep Study - Results Type of Sleep Study: Polysomnography Prior sleep studies: Yes Year and Where: 2008 - [facility] CPAP Compliance Data - Data Reviewed with Patient Average duration of nightly device use: 8 HOURS 46 MINUTES Compliance rate %: 100 (30/30 days used) Current pressure setting (cmH2O): 7-9 Average residual AHI: 0.1 Central apnea: .0 Obstructive apnea: .1 Hypopnea: .0 Average large leak: 3.4 Subjective Patient concerns: denies: aerophagia, mask discomfort, air blowing in eyes, mask leak noise, condensation in mask/hose, nasal congestion, dry mouth, nose, throat, epistaxis, other Observed to snore while using device: No Current pressure setting perceived as: comfortable On therapy, patient: reports: sleeping better, awakening more refreshed, being more awake and alert during the day, more rested overall. denies: drowsiness while driving Initial [place] Sleepiness Scale score: 3 (in 2008) Current [place] Sleepiness Scale score: 2 (05/07/2022) Allergies and Home Medications Known drug allergies: Yes (SEE LIST) Drug allergies reviewed: Yes Home medication list reviewed: Yes (no changes) Allergy and home medication list: Allergies Hyaerer-RVW-LcP Reductase Inhibitor [Pjgydqb-Tqm-Fkz Reductase Inhibitor] Allergy (Verified 09/28/20 09:22) Unknown VERIFIED BY FABRICE MORTON 05/07/2022 1100 Review of Systems Review of systems same as previous: Yes (no changes) Physical Exam Vital signs obtained and entered by: FABRICE MORTON Blood Pressure: 118/74 (R20, P78, RIGHT) Cuff size: wrist Heart Rate: 80 O2 Saturation: 97 (PAPER MASK) Height: 5 ft 7 in Weight: 171 lb (CLOTHES) Body Mass Index: 26.7 BMI Classification: Overweight Impression and Plan 1. Obstructive Sleep Apnea-Hypopnea Syndrome, mild, with excellent treatment compliance and excellent apnea control. On CPAP therapy, the patient has better sleep quality and is more rested overall. Patient has significant improvement of her sleep apnea and is satisfied with current CPAP therapy. She likes her new machine. Patient denies problems with oral dryness, nasal congestion, epistaxis, skin irritation or aerophagia. Patient's apnea severity and rationale for treatment to reduce apnea, improve sleep quality and reduce cardiovascular and cerebrovascular events was reviewed. I also reviewed the benefit of consistent device use of CPAP for hypertension, depression and anxiety. Patient's BMI 26.7, she is overweight. I advised her to maintain a healthy weight. She voiced understanding. * Continue auto CPAP pressure at 7-9 cmH2O * Notify me if snoring with mask or feeling that the pressure is too much or too little * Call this office if any problems using CPAP * Return for follow up in 1 year, or sooner if concerns arise Counseling Topics: Weight loss health impact Visit Type: In Office Time Spent with Patient (minutes): 21 Provider Statement: I spent 100% of the Face to Face Visit with the patient with greater than 50% spent counseling the patient and coordination of care.
== END 2022-05-07 10:47 | disposition home or self-care (01) ==
LOC: SC 10:46
PROVIDERS: ATTEND Nurse Practitioner Family
DX: G47.33 Obstructive sleep apnea (adult) (pediatric) (principal); E66.3 Overweight; Z68.26 Body mass index [BMI] 26.0-26.9, adult
CPT/HCPCS: 99213; G0463; 99212

== ENCOUNTER 2022-09-28 08:19 | Outpatient (CLI) | payer MEDICARE, BC ==
--- NOTE | 2022-09-28 11:04 | Ultrasound Report ---
PROCEDURE: Abdomen Complete INDICATIONS: ABD BLOATING TECHNIQUE: Real-time scanning was performed of the abdominal and retroperitoneal organs, with image documentatio n. COMPARISON: CT abdomen/pelvis 03/15/2014 FINDINGS: Liver: Liver is normal in size and homogeneous in echotexture. Gallbladder: Multiple gallstones are seen in the gallbladder with gallbladder sludge. Color wall thic kness is normal. No pericholecystic fluid. Sonographic Roche sign is negative. Biliary ducts: Intrahepatic bile ducts are non-dilated. Common bile duct measures 7.9 mm in diameter , which is at the upper limits of normal for patient's age. Pancreas: Visualized portions of the pancreas are sonographically normal. Spleen: Spleen is normal in size and homogeneous in echotexture. Kidneys: Kidneys are normal in size and echotexture. Right kidney measures 10.6 cm long; left kidne y measures 11.1 cm long. No hydronephrosis or nephrolithiasis. No solid masses. A right simple js al cyst measures up to 1.8 cm in maximum dimension. Aorta: Visualized aorta is normal in caliber at less than 3 cm. Iliacs: Proximal common iliac arteries are normal in caliber at less than 2.5 cm. IVC: Intrahepatic inferior vena cava is patent. Miscellaneous: No free abdominal fluid. IMPRESSION: 1.Cholelithiasis without signs of acute cholecystitis. 2.Common bile duct is at the upper limits of normal in size for age. If there are clinical or laborat ory findings of biliary obstruction, MRCP could be performed for further evaluation. Reviewed by: Negrito Naranjo MD on 09/28/2022 11:03 AM RUST Approved by: Negrito Naranjo MD on 09/28/2022 11:03 AM PST Station ID: [id number]
== END 2022-09-28 08:20 | disposition home or self-care (01) ==
LOC: DI 08:19
PROVIDERS: ATTEND Internal Medicine
DX: K80.20 Calculus of gallbladder without cholecystitis without obstruction (principal)

== ENCOUNTER 2023-06-15 14:12 | Outpatient (CLI) | payer MEDICARE, BC ==
--- NOTE | 2023-06-15 14:53 | Sleep Patient Instructions ---
Sleep Center Visit Summary - Patient Visit Information Reason for Visit: Annual Visit - Patient Instructions Additional Instructions: You will continue with CPAP therapy with pressure changed to 8-10 cmH2O. A supply prescription will be updated with your DME. We encourage you to continue to try to lose weight. Please follow up with the sleep care office in 1 year. - Clinic Information Contact: [facility] [address] [place] [address] [email or web address] T: [phone]
--- NOTE | 2023-06-15 14:58 | SLEEP CARE CONSULTATION ---
Information from patient questionnaire entered by Ruchi Samson. I have reviewed and concur with the information entered by Ruchi Samson. This document represents the service I personally performed and the decisions made by , Cristela Osei ARNP. History of Present Illness Service Date and Time: 06/15/2023 141 Previous diagnosis: Mild, Obstructive Sleep Apnea-Hypopnea Syndrome AHI: 12 (in 2008) Reason for follow up: annual (LAST SEEN 05/2022) Equipment type: CPAP (RESMED Airsense 11; s/u 03/2022) Equipment obtained from: [facility] (getting supplies as needed) Mask style: Nasal pillows Mask brand: Resmed Backup mask available: Yes Last cushion change: 2 weeks ago Prior sleep studies: Yes Year and Where: 2008 - [facility] Type of Sleep Study: Polysomnography HPI additional information: SANDEEP TRAVIS was diagnosed to have mild, AHI 12, obstructive sleep apnea-hypopnea syndrome and returned today for CPAP therapy annual follow-up. Sleep Study - Results Type of Sleep Study: Polysomnography Prior sleep studies: Yes Year and Where: 2008 - [facility] CPAP Compliance Data - Data Reviewed with Patient Average duration of nightly device use: 9 HRS 2 MINS Compliance rate %: 100 (-06/10/23; 180/180 days used) Current pressure setting (cmH2O): 7-9 Average residual AHI: 0.1 Central apnea: 0 Obstructive apnea: 0.1 Average large leak: 7 L/min Subjective Patient concerns: denies: aerophagia, mask discomfort, air blowing in eyes, mask leak noise, condensation in mask/hose, nasal congestion, dry mouth, nose, throat, epistaxis Observed to snore while using device: No Current pressure setting perceived as: comfortable On therapy, patient: reports: sleeping better, awakening more refreshed, being more awake and alert during the day, more rested overall. denies: drowsiness while driving Initial [place] Sleepiness Scale score: 3 (in 2008) Current [place] Sleepiness Scale score: 2 (06/15/23) Allergies and Home Medications Known drug allergies: Yes (as listed) Drug allergies reviewed: Yes Home medication list reviewed: Yes (no changes) Allergy and home medication list: Allergies Flciojc-MAT-CtH Reductase Inhibitor [Drvutza-Fmc-Pon Reductase Inhibitor] Allergy (Verified 06/14/23 10:18) Unknown Review of Systems Review of systems same as previous: No (ENDOSCOPY 04/2023 with esophagus balloon stretch for diff swallowing) Physical Exam Vital signs obtained and entered by: RUCHI Atkins MA Blood Pressure: 181/96 (RIGHT) Cuff size: wrist Heart Rate: 90 O2 Saturation: 98 Height: 5 ft 7 in Weight: 175 lb Weight change since last visit: 4 lbs gain Body Mass Index: 27.3 BMI Classification: Overweight Impression and Plan 1. Obstructive Sleep Apnea-Hypopnea Syndrome, mild, with good treatment compliance and good apnea control. On CPAP therapy, the patient has better sleep quality and is more rested overall. Patient has significant improvement of their sleep apnea and is satisfied with current CPAP therapy. However, she has sinus issues and would like to have a little more air pressure for comfort. I will adjust her pressure to 8-10 cmH2O for patient comfort. She will let me know if she develops aerophagia or if the change is uncomfortable. Patient denies problems with oral dryness, nasal congestion, epistaxis, skin irritation or aerophagia. Patient's apnea severity and rationale for treatment to reduce apnea, improve sleep quality and reduce cardiovascular and cerebrovascular events was reviewed. I also reviewed the benefit of consistent device use of CPAP for hypertension, depression and anxiety. 2. Overweight, unspecified. Currently patients BMI is 27.3. Obesity increases the risk of apnea, CPAP pressure requirements and overall health risks especially cardiovascular and diabetes. Thus patient is advised to lose weight. * Change auto CPAP pressure to 8-10 cmH2O * Update supply prescription * Notify me if snoring with mask or feeling that the pressure is too much or too little * Attempt to lose weight * Call this office if any problems using CPAP * Return for follow up in 1 year, or sooner if concerns arise Counseling Topics: Spare mask, Weight loss health impact Prescriptions: Device supplies Follow up with Sleep Care in: 1 year Visit Type: In Office Time Spent with Patient (minutes): 21 Provider Statement: I spent 100% of the Face to Face Visit with the patient with greater than 50% spent counseling the patient and coordination of care.
[2023-06-15 15:03] VITALS: BP 181/96; O2SAT 98
== END 2023-06-15 14:13 | disposition home or self-care (01) ==
LOC: SC 14:12
PROVIDERS: ATTEND Nurse Practitioner Family
DX: G47.33 Obstructive sleep apnea (adult) (pediatric) (principal); E66.3 Overweight; Z68.27 Body mass index [BMI] 27.0-27.9, adult
CPT/HCPCS: 99213; G0463; 99212

== ENCOUNTER 2023-07-14 10:32 | Outpatient (CLI) | payer MEDICARE, BC ==
--- NOTE | 2023-07-14 11:30 | XRAY Report ---
PROCEDURE: Chest 2 View X-Ray INDICATIONS: AFIB, HYPERTENTION TECHNIQUE: 2 views of the chest were acquired. COMPARISON: None. FINDINGS: Surgical changes and devices: None. Lungs and pleura: No pleural effusions or pneumothorax. Lungs are clear. Mediastinum: Mediastinal contours appear normal. Heart size is normal. Bones and chest wall: No suspicious bony lesions. Overlying soft tissues appear unremarkable. IMPRESSION: No acute cardiopulmonary process. Reviewed by: Piotr Pandya MD on 07/14/2023 11:28 AM [facility] Approved by: Piotr Pandya MD on 07/14/2023 11:28 AM [facility] Station ID: [id number]
== END 2023-07-14 10:33 | disposition home or self-care (01) ==
LOC: DI 10:32
PROVIDERS: ATTEND Internal Medicine Cardiovascular Disease
DX: I48.20 Chronic atrial fibrillation, unspecified (principal); I10 Essential (primary) hypertension; I35.1 Nonrheumatic aortic (valve) insufficiency

== ENCOUNTER 2024-05-23 08:40 | Outpatient (CLI) | payer MEDICARE, BC ==
--- NOTE | 2024-05-23 15:07 | DEXA Report ---
PROCEDURE: Dexa Spine and/or Hip INDICATIONS: OSTEOPENIA TECHNIQUE: Dual energy x-ray absorptiometry (DXA) was performed on a [employer] System. Regions measur ed are the AP Spine, femoral neck, and if needed forearm. COMPARISON: DEXA 04/23/2022 FINDINGS: Lumbar Spine: Bone Mineral Density: 0.991 g/cm/cm,T score: -1.6, compared to -1.5. Left Femoral Neck: Bone Mineral Density: 0.736 g/cm/cm, T score: -2.2, compared to -2.3. Left Hip: Bone Mineral Density: 0.821 g/cm/cm,T score: -1.5, compared to -1.2. FRAX risk factors: None given. Not applicable % (T score greater or equal to -1.0: NORMAL) (T score from -1.1 to -2.4: OSTEOPENIA) (T score less than or equal to -2.5 to: OSTEOPOROSIS) Impression: By WHO criteria, this patient has moderate to severe osteopenia most significant in the left femoral neck. Overall findings are relatively stable although noting slight interval bone mineral density los s in the left hip. Patients with diagnosis of osteoporosis or osteopenia should have regular bone mineral density assess ment. For those eligible for Medicare, routine testing is allowed once every 2 years. Testing frequ ency can be increased for patients who have rapidly progressing disease or for those who are receivin g medical therapy to restore bone mass. Reviewed by: Lisa Chester MD on 05/23/2024 3:06 PM PDT Approved by: Lisa Chester MD on 05/23/2024 3:06 PM PDT Station ID: [id number]
== END 2024-05-23 08:41 | disposition home or self-care (01) ==
LOC: DI 08:40
PROVIDERS: ATTEND Internal Medicine
DX: M85.89 Other specified disorders of bone density and structure, multiple sites (principal)